=== PATIENT | male | born 1985 | race Caucasian/White ===

== ENCOUNTER 2017-09-01 08:25 | Emergency (ER) | payer BC, MEDICAID, OTHER, SELFPAY ==
[2017-09-01] MEDS ORDERED: Ondansetron 4 MG/2 ML SDV IVPUSH ONE (08:58)
[2017-09-01] MEDS ORDERED: Sodium Chloride 0.9% 10 ML Syringe FLUSH PRN (08:58)
[2017-09-01] MEDS ORDERED: HYDROmorphone 1 MG/ML Syringe IVPUSH ONE (08:59)
[2017-09-01] MEDS ORDERED: Lactated Ringers 1,000 ML IV SCH (09:00)
--- NOTE | 2017-09-01 09:14 | EDM.PDOC ---
ED HPI GENERAL MEDICAL PROBLEM - General Chief Complaint: Abdominal Pain Stated Complaint: ABDOMINAL PAIN Time Seen by Provider: 09/01/17 08:47 Source of Information: Reports: Patient History Limitations: Reports: No Limitations - History of Present Illness INITIAL COMMENTS - FREE TEXT/NARRATIVE: The patient presents with upper abdominal pain, nausea and vomiting. This all started this weekend on Friday. He has chronic pancreatitis and sphincter of odii disfunction. He had stents placed in his sphincter of odii this past month. He was doing good until this weekend. He moved back here from [facility]. He feels that he overexerted himself and that is why he flared up. He denies drinking alcohol. He has no fever, chills, cough, chest pain or shortness of breath. Onset: Gradual Duration: Day(s): (3) Location: Reports: Abdomen Quality: Reports: Sharp Severity: Severe Improves with: Reports: None Worsens with: Reports: None Associated Symptoms: Reports: Nausea/Vomiting. Denies: Fever/Chills, Headaches , Shortness of Breath Treatments MOLD SWABBER: Reports: Other (see below) Other Treatments MOLD SWABBER: zofran and pain meds Right Upper Abdomen Pain Score (Numeric/FACES): 8 - Related Data Allergies Allergy/AdvReac Type Severity Reaction Status Date / Time cats Allergy Itching Uncoded 09/01/17 08:35 Home Meds: Home Meds Omeprazole [Prilosec] 20 mg PO BID 04/05/14 [History] Amylase/Lipase/Protease [Creon DR 24,000 Unit] 5 cap PO TIDMEALS 08/02/14 [ History] Escitalopram [Lexapro] 20 mg PO DAILY 02/09/15 [History] Ondansetron [Zofran ODT] 4 mg PO Q4H PRN #20 tab.dis 08/22/15 [Rx] Pregabalin [Lyrica] 75 mg PO TID 08/14/16 [History] oxyCODONE HCl/Acetaminophen [Endocet 10-325 mg Tablet] 1 tab PO Q6HR PRN [History] Ciprofloxacin [Ciprofloxacin HCl] 500 mg PO BID #6 tablet 07/18/17 [Rx] metroNIDAZOLE [Metronidazole] 500 mg PO TID #9 tablet 07/18/17 [Rx] Past Medical History - Past Health History Medical/Surgical History: Denies Medical/Surgical History HEENT History: Reports: Impaired Vision Other HEENT History: wears glasses Cardiovascular History: Reports: None Respiratory History: Reports: None Gastrointestinal History: Reports: Pancreatitis Other Gastrointestinal History: Stents placed in pancrease, sphinctor of asad surgery . 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 Stone was removed last summer in May-Jun Hematologic History: Reports: None Immunologic History: Reports: None Oncologic (Cancer) History: Reports: None Dermatologic History: Reports: Other (See Below) Other Dermatologic History: allergic to cats - Infectious Disease History Infectious Disease History: Reports: Chicken Pox, Shingles - Past Surgical History Head Surgeries/Procedures: Reports: None HEENT Surgical History: Reports: None GI Surgical History: Reports: Cholecystectomy, Colostomy, EGD Endocrine Surgical History: Reports: None Musculoskeletal Surgical History: Reports: None Dermatological Surgical History: Reports: None Social & Family History - Family History Family Medical History: Unobtainable Cardiac: Reports: CAD, Stent Respiratory: Reports: None GI: Reports: None Neurological: Reports: CVA Oncologic: Reports: Breast, Other (See Below) Other Oncologic Family History: STOMACH - Tobacco Use Smoking Status *Q: Current Every Day Smoker Years of Tobacco use: 14 Packs/Tins Daily: 0.2 Used Tobacco, but Quit: No Month Tobacco Last Used: 2 weeks Second Hand Smoke Exposure: No - Caffeine Use Caffeine Use: Reports: None - Alcohol Use Days Per Week of Alcohol Use: 0 - Recreational Drug Use Recreational Drug Use: Yes Drug Use in Last 12 Months: Yes Recreational Drug Type: Reports: Marijuana/Hashish Recreational Drug Use Frequency: Weekly Recreational Drug Last Use: 07/13/17 - Living Situation & Occupation Living situation: Reports: Single, Alone Occupation: Unemployed ED ROS GENERAL - Review of Systems Review Of Systems: See Below Constitutional: Reports: No Symptoms HEENT: Reports: No Symptoms Respiratory: Reports: No Symptoms Cardiovascular: Reports: No Symptoms Endocrine: Reports: No Symptoms GI/Abdominal: Reports: Abdominal Pain, Nausea, Vomiting : Reports: No Symptoms Musculoskeletal: Reports: No Symptoms ED EXAM, GI/ABD - Physical Exam Exam: See Below Exam Limited By: No Limitations General Appearance: Alert, No Apparent Distress Ears: Normal External Exam Nose: Normal Inspection Head: Atraumatic, Normocephalic Neck: Normal Inspection Respiratory/Chest: No Respiratory Distress, Lungs Clear, Normal Breath Sounds Cardiovascular: Regular Rate, Rhythm, No Edema, No Murmur GI/Abdominal Exam: Soft, No Organomegaly, No Mass, Tender (Upper abdomen) Course - Vital Signs Last Recorded V/S: Last Vital Signs Temp 97.8 F 09/01/17 08:35 Pulse 108 H 09/01/17 08:35 Resp 22 H 09/01/17 08:35 BP 157/97 H 09/01/17 08:35 Pulse Ox 98 09/01/17 08:35 Orthostatic Blood Pressure [ 130/88 Sitting] Orthostatic Blood Pressure [ 157/97 Supine] - Orders/Labs/Meds Orders: Active Orders 24 hr Category Date Time Status Peripheral IV Care [RC] . DIRECTED Care 09/01/17 08:58 Active Lactated Ringers [Ringers, Lactated] 1,000 ml Med 09/01/17 09:00 Active IV ASDIRECTED Sodium Chloride 0.9% [Saline Flush] Med 09/01/17 08:58 Active 10 ml FLUSH ASDIRECTED PRN ED Antiemetic Medication Reflex [OM.PC] Stat Oth 09/01/17 08:58 Ordered Peripheral IV Insertion Adult [OM.PC] Stat Oth 09/01/17 08:58 Ordered Medication Orders Lactated Ringer's (Ringers, Lactated) 1,000 mls @ 1,000 mls/hr IV ASDIRECTED MACHELLE Last Admin: 09/01/17 09:15 Dose: 1,000 mls/hr Sodium Chloride (Saline Flush) 10 ml FLUSH ASDIRECTED PRN PRN Reason: Keep Vein Open Last Admin: 09/01/17 09:17 Dose: 10 ml Labs: Laboratory Tests 09/01/17 09/01/17 Range/Units 08:45 08:45 WBC 14.56 H (4.23-9.07) K/mm3 RBC 5.51 (4.63-6.08) M/mm3 Hgb 16.5 (13.7-17.5) gm/L Hct 49.7 (40.1-51.0) % MCV 90.2 (79.0-92.2) fl MCH 29.9 (25.7-32.2) pg MCHC 33.2 (32.2-35.5) g/dl RDW Std Deviation 44.0 H (35.1-43.9) fL Plt Count 192 (163-337) K/mm3 MPV 12.0 (9.4-12.3) fl Neut % (Auto) 71.5 H (34.0-67.9) % Lymph % (Auto) 19.0 L (21.8-53.1) % Posey % (Auto) 6.5 (5.3-12.2) % Eos % (Auto) 2.3 (0.8-7.0) Baso % (Auto) 0.5 (0.1-1.2) % Neut # (Auto) 10.41 H (1.78-5.38) K/mm3 Lymph # (Auto) 2.76 (1.32-3.57) K/mm3 [place]osey # (Auto) 0.95 H (0.30-0.82) K/mm3 Eos # (Auto) 0.33 (0.04-0.54) K/mm3 Baso # (Auto) 0.08 (0.01-0.08) K/mm3 Sodium 145 (136-145) mEq/L Potassium 4.2 (3.5-5.1) mEq/L Chloride 108 H (98-107) mEq/L Carbon Dioxide 23 (21-32) mEq/L Anion Gap 18.2 H (5-15) BUN 11 (7-18) mg/dL Creatinine 1.0 (0.7-1.3) mg/dL Est Cr Clr Drug Dosing 123.30 mL/min Estimated GFR (MDRD) > 60 (>60) mL/min BUN/Creatinine Ratio 11.0 L (14-18) Glucose 119 H (74-106) mg/dL Calcium 9.4 (8.5-10.1) mg/dL Total Bilirubin 1.0 (0.2-1.0) mg/dL AST 15 (15-37) U/L ALT 21 (16-63) U/L Alkaline Phosphatase 89 (46-116) U/L Total Protein 8.2 (6.4-8.2) g/dl Albumin 4.6 (3.4-5.0) g/dl Globulin 3.6 gm/dL Albumin/Globulin Ratio 1.3 (1-2) Lipase 174 (73-393) U/L Meds: Medications Generic Name Dose Route Start Last Admin Trade Name Freq PRN Reason Stop Dose Admin Lactated Ringer's 1,000 mls @ 1,000 mls/hr 09/01/17 09:00 09/01/17 09:15 Ringers, Lactated IV 1,000 mls/hr ASDIRECTED MACHELLE Administration Sodium Chloride 10 ml 09/01/17 08:58 09/01/17 09:17 Saline Flush FLUSH 10 ml ASDIRECTED PRN Administration Keep Vein Open Discontinued Medications Generic Name Dose Route Start Last Admin Trade Name Freq PRN Reason Stop Dose Admin Hydromorphone HCl 1 mg 09/01/17 08:59 09/01/17 09:18 Dilaudid IVPUSH 09/01/17 09:00 1 mg ONETIME ONE Administration Ondansetron HCl 4 mg 09/01/17 08:58 09/01/17 09:16 Zofran IVPUSH 09/01/17 08:59 4 mg ONETIME ONE Administration - Re-Assessments/Exams Free Text/Narrative Re-Assessment/Exam: 09/01/17 09:17 I ordered an IV LR 1L bolus, zofran 4mg IV, dilaudid 1mg IV and labs. 09/01/17 10:02 His WBC was 14.56. His anion gap was elevated at 18.2. He feels a little better. I will give him another dose of dilaudid and he has an appointment with his doctor at 12:30 today. Departure - Departure Time of Disposition: 10:05 Disposition: Home, Self-Care 01 Condition: Good Clinical Impression: Sphincter of Oddi dysfunction Chronic pancreatitis Qualifiers: Pancreatitis type: unspecified pancreatitis type Qualified Code(s): K86.1 - Other chronic pancreatitis - Discharge Information Referrals: Sandra Young, INVESTMENTS MANAGER [Primary Care Provider] - Forms: ED Department Discharge Additional Instructions: Follow up with Sandra Young today. Please return if you are worse. - My Orders Last 24 Hours: My Active Orders 09/01/17 08:58 Peripheral IV Care [RC] . DIRECTED Sodium Chloride 0.9% [Saline Flush] 10 ml FLUSH ASDIRECTED PRN ED Antiemetic Medication Reflex [OM.PC] Stat Peripheral IV Insertion Adult [OM.PC] Stat 09/01/17 09:00 Lactated Ringers [Ringers, Lactated] 1,000 ml IV ASDIRECTED - Assessment/Plan Last 24 Hours: My Active Orders 09/01/17 08:58 Peripheral IV Care [RC] . DIRECTED Sodium Chloride 0.9% [Saline Flush] 10 ml FLUSH ASDIRECTED PRN ED Antiemetic Medication Reflex [OM.PC] Stat Peripheral IV Insertion Adult [OM.PC] Stat 09/01/17 09:00 Lactated Ringers [Ringers, Lactated] 1,000 ml IV ASDIRECTED
[2017-09-01] MEDS ORDERED: HYDROmorphone 0.5 MG/0.5 ML Syringe IVPUSH ONE (10:03)
[2017-09-01 10:21] VITALS: BP 132/92
== END 2017-09-01 12:15 | disposition home or self-care (01) ==
LOC: SUPCPDRO 08:25 → JD.ED 08:25
DX: K83.8 Other specified diseases of biliary tract (principal); K86.1 Other chronic pancreatitis; Z79.899 Other long term (current) drug therapy; F41.9 Anxiety disorder, unspecified; F32.9 Major depressive disorder, single episode, unspecified; F17.210 Nicotine dependence, cigarettes, uncomplicated; Z96.89 Presence of other specified functional implants
CPT/HCPCS: 36415; 80053; 83690; 85025; 96361; 96374; 96375; 96376; 99284; J1170; J2405; J7050; J7120

== ENCOUNTER 2017-09-07 09:27 | Emergency (ER) | payer OTHER ==
--- NOTE | 2017-09-07 09:50 | EDM.PDOC ---
ED HPI GENERAL MEDICAL PROBLEM - General Chief Complaint: Abdominal Pain Stated Complaint: ABDOMINAL PAIN ACUTE PANCREATITIS Time Seen by Provider: 09/07/17 09:49 - History of Present Illness INITIAL COMMENTS - FREE TEXT/NARRATIVE: 32-year-old male presents to the emergency room with abdominal pain. This started around 4:00 this morning the patient could not get relief after taking one of his 4 mg Dilaudid tablets at home. The patient has recurrent bouts of pancreatitis he had stents placed in the sphincter of Reed early in July of this year. The patient denies any alcohol use he occasionally uses marijuana the patient has dialyzed tablets at home for pain these are not working. The patient is had some nausea and vomiting this morning further complicating his pain management. Patient is treated for dyspepsia with omeprazole. Patient denies any fevers or chills mostly complaining of severe pain. Right Upper Abdomen Pain Score (Numeric/FACES): 9 - Related Data Allergies Allergy/AdvReac Type Severity Reaction Status Date / Time cats Allergy Itching Uncoded 09/07/17 09:38 Home Meds: Home Meds Omeprazole [Prilosec] 20 mg PO BID 04/05/14 [History] Amylase/Lipase/Protease [Creon DR 24,000 Unit] 5 cap PO TIDMEALS 08/02/14 [ History] Escitalopram [Lexapro] 20 mg PO DAILY 02/09/15 [History] Ondansetron [Zofran ODT] 4 mg PO Q4H PRN #20 tab.dis 08/22/15 [Rx] Pregabalin [Lyrica] 50 mg PO TID 08/14/16 [History] Ciprofloxacin [Ciprofloxacin HCl] 500 mg PO BID #6 tablet 07/18/17 [Rx] metroNIDAZOLE [Metronidazole] 500 mg PO TID #9 tablet 07/18/17 [Rx] HYDROmorphone [Dilaudid] 2 mg PO Q4H PRN 09/07/17 [History] Past Medical History - Past Health History Medical/Surgical History: Denies Medical/Surgical History HEENT History: Reports: Impaired Vision Other HEENT History: wears glasses Cardiovascular History: Reports: None Respiratory History: Reports: None Gastrointestinal History: Reports: Pancreatitis Other Gastrointestinal History: Stents placed in pancrease, sphinctor of asad surgery . 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 Stone was removed last summer in May-Jun Hematologic History: Reports: None Immunologic History: Reports: None Oncologic (Cancer) History: Reports: None Dermatologic History: Reports: Other (See Below) Other Dermatologic History: allergic to cats - Infectious Disease History Infectious Disease History: Reports: Chicken Pox, Shingles - Past Surgical History Head Surgeries/Procedures: Reports: None HEENT Surgical History: Reports: None GI Surgical History: Reports: Cholecystectomy, Colostomy, EGD Endocrine Surgical History: Reports: None Musculoskeletal Surgical History: Reports: None Dermatological Surgical History: Reports: None Social & Family History - Family History Family Medical History: Unobtainable Cardiac: Reports: CAD, Stent Respiratory: Reports: None GI: Reports: None Neurological: Reports: CVA Oncologic: Reports: Breast, Other (See Below) Other Oncologic Family History: STOMACH - Tobacco Use Smoking Status *Q: Current Every Day Smoker Years of Tobacco use: 14 Packs/Tins Daily: 0.2 Used Tobacco, but Quit: No Month Tobacco Last Used: 2 weeks Second Hand Smoke Exposure: No - Caffeine Use Caffeine Use: Reports: None - Alcohol Use Days Per Week of Alcohol Use: 0 - Recreational Drug Use Recreational Drug Use: Yes Drug Use in Last 12 Months: Yes Recreational Drug Type: Reports: Marijuana/Hashish Recreational Drug Use Frequency: Weekly Recreational Drug Last Use: 07/13/17 - Living Situation & Occupation Living situation: Reports: Single, Alone Occupation: Unemployed ED ROS GENERAL - Review of Systems Review Of Systems: See Below Constitutional: Reports: No Symptoms HEENT: Reports: No Symptoms Respiratory: Reports: No Symptoms Cardiovascular: Reports: No Symptoms GI/Abdominal: Reports: Abdominal Pain, Nausea, Vomiting. Denies: Constipation, Diarrhea : Reports: No Symptoms Musculoskeletal: Reports: No Symptoms Skin: Reports: No Symptoms Neurological: Reports: No Symptoms ED EXAM, GI/ABD - Physical Exam Exam: See Below Exam Limited By: No Limitations General Appearance: Alert, Moderate Distress (From the pain) Head: Atraumatic, Normocephalic Neck: Normal Inspection, Supple, Non-Tender, Full Range of Motion Respiratory/Chest: No Respiratory Distress, Lungs Clear, Normal Breath Sounds Cardiovascular: Regular Rate, Rhythm, No Edema, No Murmur GI/Abdominal Exam: Normal Bowel Sounds, Soft, Tender (Patient is marked upper quadrant tenderness mostly midepigastric to a lesser degree in the left and right upper quadrants). No: Guarding, Rigid, Rebound Back Exam: Normal Inspection. No: CVA Tenderness (L), CVA Tenderness (R) Extremities: Normal Inspection, No Pedal Edema Neurological: Alert, Oriented, Normal Cognition Course - Vital Signs Last Recorded V/S: Last Vital Signs Temp 36.3 C 09/07/17 09:33 Pulse 180 H 09/07/17 09:33 Resp 18 09/07/17 09:33 BP 152/105 H 09/07/17 09:33 Pulse Ox 100 09/07/17 09:33 - Orders/Labs/Meds Orders: Active Orders 24 hr Category Date Time Status Abdomen Pelvis w Cont [CT] Stat Exams 09/07/17 11:49 Ordered Lactated Ringers [Ringers, Lactated] 1,000 ml Med 09/07/17 10:00 Active IV ASDIRECTED Medication Orders Lactated Ringer's (Ringers, Lactated) 1,000 mls @ 150 mls/hr IV ASDIRECTED MACHELLE Last Admin: 09/07/17 10:17 Dose: 150 mls/hr Labs: Laboratory Tests 09/07/17 09/07/17 09/07/17 Range/Units 09:45 09:45 11:25 WBC 14.20 H (4.23-9.07) K/mm3 RBC 5.07 (4.63-6.08) M/mm3 Hgb 15.4 (13.7-17.5) gm/L Hct 46.1 (40.1-51.0) % MCV 90.9 (79.0-92.2) fl MCH 30.4 (25.7-32.2) pg MCHC 33.4 (32.2-35.5) g/dl RDW Std Deviation 44.4 H (35.1-43.9) fL Plt Count 189 (163-337) K/mm3 MPV 12.0 (9.4-12.3) fl Neutrophils % (Manual) 75 H (40-60) % Band Neutrophils % 0 (0-10) % Lymphocytes % (Manual) 21 (20-40) % Atypical Lymphs % 0 % Monocytes % (Manual) 2 (2-10) % Eosinophils % (Manual) 1 (0.8-7.0) % Basophils % (Manual) 1 (0.2-1.2) Platelet Estimate Adequate RBC Morph Comment Normal Sodium 144 (136-145) mEq/L Potassium 4.6 (3.5-5.1) mEq/L Chloride 107 (98-107) mEq/L Carbon Dioxide 25 (21-32) mEq/L Anion Gap 16.6 H (5-15) BUN 14 (7-18) mg/dL Creatinine 0.9 (0.7-1.3) mg/dL Est Cr Clr Drug Dosing 137.00 mL/min Estimated GFR (MDRD) > 60 (>60) mL/min BUN/Creatinine Ratio 15.6 (14-18) Glucose 126 H (74-106) mg/dL Calcium 9.1 (8.5-10.1) mg/dL Total Bilirubin 0.2 (0.2-1.0) mg/dL AST 14 L (15-37) U/L ALT 20 (16-63) U/L Alkaline Phosphatase 81 (46-116) U/L Total Protein 7.5 (6.4-8.2) g/dl Albumin 4.1 (3.4-5.0) g/dl Globulin 3.4 gm/dL Albumin/Globulin Ratio 1.2 (1-2) Amylase 94 (25-115) U/L Lipase 622 H (73-393) U/L Urine Color (Yellow) Urine Appearance (Clear) Urine pH (5.0-8.0) Ur Specific [place] (1.005-1.030) Urine Protein (Negative) Urine Glucose (UA) (Negative) Urine Ketones (Negative) Urine Occult Blood (Negative) Urine Nitrite (Negative) Urine Bilirubin (Negative) Urine Urobilinogen (0.2-1.0) Ur Leukocyte Esterase (Negative) Urine RBC (0-5) /hpf Urine WBC (0-5) /hpf Ur Epithelial Cells (0-5) /hpf Urine Bacteria (FEW) /hpf Urine Mucus (FEW) /hpf Urine Opiates Screen Presumptive positive H (NEGATIVE) Ur Buprenorphine Scrn Negative (NEGATIVE) Ur Oxycodone Screen Negative (NEGATIVE) Urine Methadone Screen Negative (NEGATIVE) Ur Propoxyphene Screen Negative (NEGATIVE) Ur Barbiturates Screen Negative (NEGATIVE) Ur Tricyclics Screen Presumptive positive H (NEGATIVE) Ur Phencyclidine Scrn Negative (NEGATIVE) Ur Amphetamine Screen Negative (NEGATIVE) U Methamphetamines Scrn Negative (NEGATIVE) U Benzodiazepines Scrn Negative (NEGATIVE) U Cocaine Metab Screen Negative (NEGATIVE) U Marijuana (THC) Screen Presumptive positive H (NEGATIVE) Ethyl Alcohol 0.00 (0.00) gm% 09/07/17 Range/Units 11:25 WBC (4.23-9.07) K/mm3 RBC (4.63-6.08) M/mm3 Hgb (13.7-17.5) gm/L Hct (40.1-51.0) % MCV (79.0-92.2) fl MCH (25.7-32.2) pg MCHC (32.2-35.5) g/dl RDW Std Deviation (35.1-43.9) fL Plt Count (163-337) K/mm3 MPV (9.4-12.3) fl Neutrophils % (Manual) (40-60) % Band Neutrophils % (0-10) % Lymphocytes % (Manual) (20-40) % Atypical Lymphs % % Monocytes % (Manual) (2-10) % Eosinophils % (Manual) (0.8-7.0) % Basophils % (Manual) (0.2-1.2) Platelet Estimate RBC Morph Comment Sodium (136-145) mEq/L Potassium (3.5-5.1) mEq/L Chloride (98-107) mEq/L Carbon Dioxide (21-32) mEq/L Anion Gap (5-15) BUN (7-18) mg/dL Creatinine (0.7-1.3) mg/dL Est Cr Clr Drug Dosing mL/min Estimated GFR (MDRD) (>60) mL/min BUN/Creatinine Ratio (14-18) Glucose (74-106) mg/dL Calcium (8.5-10.1) mg/dL Total Bilirubin (0.2-1.0) mg/dL AST (15-37) U/L ALT (16-63) U/L Alkaline Phosphatase (46-116) U/L Total Protein (6.4-8.2) g/dl Albumin (3.4-5.0) g/dl Globulin gm/dL Albumin/Globulin Ratio (1-2) Amylase (25-115) U/L Lipase (73-393) U/L Urine Color Yellow (Yellow) Urine Appearance Clear (Clear) Urine pH 6.0 (5.0-8.0) Ur Specific [place] > or = 1.030 (1.005-1.030) Urine Protein Negative (Negative) Urine Glucose (UA) Negative (Negative) Urine Ketones Negative (Negative) Urine Occult Blood Negative (Negative) Urine Nitrite Negative (Negative) Urine Bilirubin Negative (Negative) Urine Urobilinogen 0.2 (0.2-1.0) Ur Leukocyte Esterase Negative (Negative) Urine RBC 0-5 (0-5) /hpf Urine WBC 0-5 (0-5) /hpf Ur Epithelial Cells 0-5 (0-5) /hpf Urine Bacteria Not seen (FEW) /hpf Urine Mucus Few (FEW) /hpf Urine Opiates Screen (NEGATIVE) Ur Buprenorphine Scrn (NEGATIVE) Ur Oxycodone Screen (NEGATIVE) Urine Methadone Screen (NEGATIVE) Ur Propoxyphene Screen (NEGATIVE) Ur Barbiturates Screen (NEGATIVE) Ur Tricyclics Screen (NEGATIVE) Ur Phencyclidine Scrn (NEGATIVE) Ur Amphetamine Screen (NEGATIVE) U Methamphetamines Scrn (NEGATIVE) U Benzodiazepines Scrn (NEGATIVE) U Cocaine Metab Screen (NEGATIVE) U Marijuana (THC) Screen (NEGATIVE) Ethyl Alcohol (0.00) gm% Meds: Medications Generic Name Dose Route Start Last Admin Trade Name Freq PRN Reason Stop Dose Admin Lactated Ringer's 1,000 mls @ 150 mls/hr 09/07/17 10:00 09/07/17 10:17 Ringers, Lactated IV 150 mls/hr ASDIRECTED MACHELLE Administration Discontinued Medications Generic Name Dose Route Start Last Admin Trade Name Freq PRN Reason Stop Dose Admin Hydromorphone HCl 0.5 mg 09/07/17 09:56 09/07/17 10:20 Dilaudid IVPUSH 09/07/17 09:57 Not Given ONETIME ONE Hydromorphone HCl 1 mg 09/07/17 10:10 09/07/17 10:12 Dilaudid IVPUSH 09/07/17 10:11 1 mg ONETIME ONE Administration Hydromorphone HCl 0.5 mg 09/07/17 11:38 09/07/17 11:45 Dilaudid IVPUSH 09/07/17 11:39 0.5 mg ONETIME ONE Administration Ondansetron HCl 4 mg 09/07/17 09:56 09/07/17 10:10 Zofran IVPUSH 09/07/17 09:57 4 mg ONETIME ONE Administration Pantoprazole Sodium 40 mg 09/07/17 11:51 09/07/17 12:00 Protonix Iv IVPUSH 09/07/17 11:52 40 mg ONETIME ONE Administration - Re-Assessments/Exams Free Text/Narrative Re-Assessment/Exam: 09/07/17 12:08 Patient initially received a milligram of Dilaudid with some pain relief but this was short-lived this was followed up with 0.5 of Dilaudid. His lipase came back at 622 did offer CAT scan in patient declined this is his mine captain told him he does not need these and they are seldom beneficial. Patient's white count is 14,275% segs 0 bands. He is a little dehydrated also. Case discussed with Dr. Macedo hospitalist patient will be placed in for fluid therapy and pain control. Departure - Departure Time of Disposition: 12:10 Disposition: Admitted As Inpatient 66 Clinical Impression: Pancreatitis Qualifiers: Chronicity: chronic Pancreatitis type: idiopathic Qualified Code(s): K86.1 - Other chronic pancreatitis - Discharge Information Referrals: Sandra Young, CLINICAL PHLEBOTOMIST [Primary Care Provider] - Forms: ED Department Discharge - My Orders Last 24 Hours: My Active Orders 09/07/17 10:00 Lactated Ringers [Ringers, Lactated] 1,000 ml IV ASDIRECTED 09/07/17 11:49 Abdomen Pelvis w Cont [CT] Stat - Assessment/Plan Last 24 Hours: My Active Orders 09/07/17 10:00 Lactated Ringers [Ringers, Lactated] 1,000 ml IV ASDIRECTED 09/07/17 11:49 Abdomen Pelvis w Cont [CT] Stat
[2017-09-07] MEDS ORDERED: Ondansetron 4 MG/2 ML SDV IVPUSH ONE (09:56)
[2017-09-07] MEDS ORDERED: HYDROmorphone 1 MG/ML Syringe IVPUSH ONE ×2 (09:56→10:10)
[2017-09-07] MEDS ORDERED: Lactated Ringers 1,000 ML IV SCH (10:00)
[2017-09-07] MEDS ORDERED: HYDROmorphone 0.5 MG/0.5 ML Syringe IVPUSH ONE (11:38)
[2017-09-07] MEDS ORDERED: Pantoprazole 40 MG Vial IVPUSH ONE (11:51)
--- NOTE | 2017-09-07 12:45 | PCM.HP ---
H&P History of Present Illness - General Date of Service: 09/07/17 Admit Problem/Dx: Acute and Chronic Pancreatitis Source of Information: Patient, Old Records, RN Notes Reviewed History Limitations: Reports: No Limitations Right Upper Abdomen Pain Score (Numeric/FACES): 9 - Related Data Allergies/Adverse Reactions: Allergies Allergy/AdvReac Type Severity Reaction Status Date / Time cats Allergy Itching Uncoded 09/07/17 09:38 Home Medications: Home Meds Omeprazole [Prilosec] 20 mg PO BID 04/05/14 [History] Amylase/Lipase/Protease [Creon DR 24,000 Unit] 5 cap PO TIDMEALS 08/02/14 [ History] Escitalopram [Lexapro] 20 mg PO DAILY 02/09/15 [History] Ondansetron [Zofran ODT] 4 mg PO Q4H PRN #20 tab.dis 08/22/15 [Rx] Pregabalin [Lyrica] 50 mg PO TID 08/14/16 [History] Ciprofloxacin [Ciprofloxacin HCl] 500 mg PO BID #6 tablet 07/18/17 [Rx] metroNIDAZOLE [Metronidazole] 500 mg PO TID #9 tablet 07/18/17 [Rx] HYDROmorphone [Dilaudid] 2 mg PO Q4H PRN 09/07/17 [History] Past Medical History - Past Health History Medical/Surgical History: Denies Medical/Surgical History HEENT History: Reports: Impaired Vision Other HEENT History: wears glasses Cardiovascular History: Reports: None Respiratory History: Reports: None Gastrointestinal History: Reports: Pancreatitis Other Gastrointestinal History: Stents placed in pancrease, sphinctor of asad surgery . 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 Stone was removed last summer in May-Jun Hematologic History: Reports: None Immunologic History: Reports: None Oncologic (Cancer) History: Reports: None Dermatologic History: Reports: Other (See Below) Other Dermatologic History: allergic to cats - Infectious Disease History Infectious Disease History: Reports: Chicken Pox, Shingles - Past Surgical History Head Surgeries/Procedures: Reports: None HEENT Surgical History: Reports: None GI Surgical History: Reports: Cholecystectomy, Colostomy, EGD Endocrine Surgical History: Reports: None Musculoskeletal Surgical History: Reports: None Dermatological Surgical History: Reports: None Social & Family History - Family History Family Medical History: Unobtainable Cardiac: Reports: CAD, Stent Respiratory: Reports: None GI: Reports: None Neurological: Reports: CVA Oncologic: Reports: Breast, Other (See Below) Other Oncologic Family History: STOMACH - Tobacco Use Smoking Status *Q: Current Every Day Smoker Years of Tobacco use: 14 Packs/Tins Daily: 0.2 Used Tobacco, but Quit: No Month Tobacco Last Used: 2 weeks Second Hand Smoke Exposure: No - Caffeine Use Caffeine Use: Reports: None - Alcohol Use Days Per Week of Alcohol Use: 0 - Recreational Drug Use Recreational Drug Use: Yes Drug Use in Last 12 Months: Yes Recreational Drug Type: Reports: Marijuana/Hashish Recreational Drug Use Frequency: Weekly Recreational Drug Last Use: 07/13/17 - Living Situation & Occupation Living situation: Reports: Single, Alone Occupation: Unemployed Exam - Vital Signs Vital Signs: Last Vital Signs Temp 36.3 C 09/07/17 09:33 Pulse 180 H 09/07/17 09:33 Resp 18 09/07/17 09:33 BP 152/105 H 09/07/17 09:33 Pulse Ox 100 09/07/17 09:33 Weight: 117.934 kg - Patient Data Result Diagrams: 09/07/17 09:45 09/07/17 09:45 *Q Meaningful Use (ADM) - VTE *Q VTE Criteria *Q: - Stroke *Q Stroke Criteria *Q: - AMI *Q AMI Criteria *Q: Orders Last 24hrs: Medication Orders Lactated Ringer's (Ringers, Lactated) 1,000 mls @ 150 mls/hr IV ASDIRECTED MACHELLE Last Admin: 09/07/17 10:17 Dose: 150 mls/hr
[2017-09-07 13:08] VITALS: BP 124/81
== END 2017-09-07 13:33 | disposition home or self-care (01) ==
LOC: EEVIPCON 09:27 → JD.ED 09:27 → JD.MS 12:19 → UNDOADMIN 12:19 → JD.ED 13:30 → JD.MS 13:33
DX: K86.1 Other chronic pancreatitis (principal); F17.210 Nicotine dependence, cigarettes, uncomplicated; Z79.899 Other long term (current) drug therapy
CPT/HCPCS: 36415; 80053; 80306; 81001; 82150; 83690; 85025; 96361; 96374; 96375; 96376; 99284; C9113; G0480; J1170; J2405; J7120; 99285

== ENCOUNTER 2017-09-07 15:19 | Emergency (ER) | payer MEDICAID, OTHER ==
--- NOTE | 2017-09-07 17:10 | EDM.PDOC ---
ED HPI GENERAL MEDICAL PROBLEM - General Chief Complaint: Abdominal Pain Stated Complaint: ABD PAIN Time Seen by Provider: 09/07/17 16:59 - History of Present Illness INITIAL COMMENTS - FREE TEXT/NARRATIVE: 32-year-old male returns to the emergency room with continued pain. Patient was seen and thoroughly evaluated earlier today we are get admitted for pain control for his pancreatitis however the patient declined admission. At this point the patient is doing better than he was morning he thinks she's on the tail end of this exacerbation of his pancreatitis flare. We did have some issues with the patient as he told me he was going to get a taxi to take him home and he drove himself home instead we confronted him about this he did attempt to get a ride but was unable to. He has not developed any fevers or chills he did take his last 2 mg Dilaudid around 1:00 this afternoon. Treatments GROUTMAN: Reports: Other (see below) Other Treatments GROUTMAN: zofran Right Upper Abdomen Pain Score (Numeric/FACES): 8 - Related Data Allergies Allergy/AdvReac Type Severity Reaction Status Date / Time cats Allergy Itching Uncoded 09/07/17 09:38 Home Meds: Home Meds Omeprazole [Prilosec] 20 mg PO BID 04/05/14 [History] Amylase/Lipase/Protease [Creon DR 24,000 Unit] 5 cap PO TIDMEALS 08/02/14 [ History] Escitalopram [Lexapro] 20 mg PO DAILY 02/09/15 [History] Ondansetron [Zofran ODT] 4 mg PO Q4H PRN #20 tab.dis 08/22/15 [Rx] Pregabalin [Lyrica] 50 mg PO TID 08/14/16 [History] HYDROmorphone [Dilaudid] 2 mg PO Q4H PRN 09/07/17 [History] metroNIDAZOLE [Flagyl] 500 mg PO TID 09/07/17 [History] Past Medical History - Past Health History Medical/Surgical History: Denies Medical/Surgical History HEENT History: Reports: Impaired Vision Other HEENT History: wears glasses Cardiovascular History: Reports: None Respiratory History: Reports: None Gastrointestinal History: Reports: Pancreatitis Other Gastrointestinal History: Stents placed in pancrease, sphinctor of asad surgery . 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 Stone was removed last summer in May-Jun Hematologic History: Reports: None Immunologic History: Reports: None Oncologic (Cancer) History: Reports: None Dermatologic History: Reports: Other (See Below) Other Dermatologic History: allergic to cats - Infectious Disease History Infectious Disease History: Reports: Chicken Pox, Shingles - Past Surgical History Head Surgeries/Procedures: Reports: None HEENT Surgical History: Reports: None GI Surgical History: Reports: Cholecystectomy, Colostomy, EGD Endocrine Surgical History: Reports: None Musculoskeletal Surgical History: Reports: None Dermatological Surgical History: Reports: None Social & Family History - Family History Family Medical History: Unobtainable Cardiac: Reports: CAD, Stent Respiratory: Reports: None GI: Reports: None Neurological: Reports: CVA Oncologic: Reports: Breast, Other (See Below) Other Oncologic Family History: STOMACH - Tobacco Use Smoking Status *Q: Current Every Day Smoker Years of Tobacco use: 14 Packs/Tins Daily: 0.3 Used Tobacco, but Quit: No Month Tobacco Last Used: 2 weeks Second Hand Smoke Exposure: No - Caffeine Use Caffeine Use: Reports: None - Alcohol Use Days Per Week of Alcohol Use: 0 - Recreational Drug Use Recreational Drug Use: Yes Drug Use in Last 12 Months: Yes Recreational Drug Type: Reports: Marijuana/Hashish Other Recreational Drug Type: lasst time was 3 weeks ago Recreational Drug Use Frequency: Weekly Recreational Drug Last Use: 07/13/17 - Living Situation & Occupation Living situation: Reports: Single, Alone Occupation: Unemployed ED ROS GENERAL - Review of Systems Review Of Systems: See Below Constitutional: Denies: Fever, Chills Respiratory: Reports: No Symptoms Cardiovascular: Reports: No Symptoms GI/Abdominal: Reports: Abdominal Pain, Nausea, Vomiting. Denies: Constipation, Diarrhea ED EXAM, GI/ABD - Physical Exam Exam: See Below Exam Limited By: No Limitations General Appearance: Alert, No Apparent Distress Respiratory/Chest: No Respiratory Distress, Lungs Clear, Normal Breath Sounds Cardiovascular: Regular Rate, Rhythm, No Edema, No Murmur GI/Abdominal Exam: Normal Bowel Sounds, Soft, Other (No rebound or guarding noted patient has some discomfort in the epigastric region. This is much milder than it was earlier today) Course - Vital Signs Last Recorded V/S: Last Vital Signs Temp 36.8 C 09/07/17 15:49 Pulse 88 09/07/17 15:49 Resp 32 H 09/07/17 15:49 BP 147/79 H 09/07/17 15:49 Pulse Ox 97 09/07/17 15:49 - Re-Assessments/Exams Free Text/Narrative Re-Assessment/Exam: 09/07/17 17:28 The patient would prefer to be treated as an outpatient and since he is improving I think this is reasonable. We discussed his pain options. There is no labored and get him oral Dilaudid on a Friday afternoon after the pharmacy is closed. He will follow-up with his primary provider tomorrow in the short- term he'll be given Percocet No. 6 03/19/25 one or 2 every 6 hours as needed he has plenty of Zofran at home. We discussed no uncertain terms the importance of him being honest with us especially when it comes to taking pain medication in the driving away from here. Departure - Departure Time of Disposition: 17:17 Disposition: Home, Self-Care 01 Clinical Impression: Pancreatitis Qualifiers: Chronicity: chronic Pancreatitis type: idiopathic Qualified Code(s): K86.1 - Other chronic pancreatitis - Discharge Information Referrals: Sandra Young, HOP SEPARATOR [Primary Care Provider] - Forms: ED Department Discharge Additional Instructions: Return to the emergency room with any questions problems worsening symptoms. Follow-up with your regular provider in the morning as we've discussed. He been given Percocet No. 6 from the machine at waiting room one or 2 every 6 hours as needed for pain. Do not drive or returning to work within 12 hours of taking the Percocet. Clear liquid diet. Follow-up with the drywall stripper helper as soon as practical.
[2017-09-07 17:53] VITALS: BP 163/94
== END 2017-09-07 17:30 | disposition home or self-care (01) ==
LOC: JD.ED 15:19
DX: K86.1 Other chronic pancreatitis (principal); F17.210 Nicotine dependence, cigarettes, uncomplicated; Z79.899 Other long term (current) drug therapy
CPT/HCPCS: 99284; 99285

== ENCOUNTER 2017-09-14 13:47 | Emergency (ER) | payer MEDICAID ==
[2017-09-14 14:06] VITALS: BP 115/98
[2017-09-14] MEDS ORDERED: Ondansetron 4 MG/2 ML SDV IVPUSH ONE (14:45)
[2017-09-14] MEDS ORDERED: Sodium Chloride 0.9% 1,000 ML IV ONE (14:45)
--- NOTE | 2017-09-14 14:56 | EDM.PDOC ---
ED HPI GENERAL MEDICAL PROBLEM - General Chief Complaint: Gastrointestinal Problem Stated Complaint: VOMITING Time Seen by Provider: 09/14/17 13:52 Source of Information: Reports: Patient, Old Records, RN Notes Reviewed, Other ( [place]MP[place]) History Limitations: Reports: No Limitations - History of Present Illness INITIAL COMMENTS - FREE TEXT/NARRATIVE: The patient states that he has a history of chronic pancreatitis, due to pancreas divisum, first diagnosed at 24 years of age, but symptomatically since 18 years of age. He states that he is undergone treatment including biliary stents, 2 sphincter of Oddi surgeries, stone removal, and a laparoscopic cholecystectomy. He has been seen by the [employer] Foreign [employer] Tutor Dr. Jaramillo from [place], however, his pain is currently being managed by Brittani Young. He states that he developed right upper quadrant abdominal pain, nausea, and vomiting this past 09/12/2017. He describes the pain as sharp/stabbing. It does not radiate. He states that it has been waxing and waning. He states that he feels better if he applies heat to the area. He states that he was last prescribed Dilaudid 2 mg, one tablet every 4-6 hours , 6 days ago, on 09/08/2017, but that he has run out due to excess consumption. He states that he called Ms. Young on Friday, but has not had a response. Review of the [place] PMP[place] finds that the patient has 217 prescriptions for controlled substances by 14 prescribers filled at 9 different pharmacies. His most recent prescription for an opioid was Dilaudid 2 mg tablets, #40, a ten- day prescription, per Brittani Young, written and filled on 09/08/2017. This should have lasted him until this coming , 09/18/2017. Abdominal Pain Score (Numeric/FACES): 7 - Related Data Allergies Allergy/AdvReac Type Severity Reaction Status Date / Time cats Allergy Itching Uncoded 09/14/17 14:01 Home Meds: Home Meds Omeprazole [Prilosec] 20 mg PO BID 04/05/14 [History] Amylase/Lipase/Protease [Angel PITTMAN 24,000 Unit] 5 cap PO TIDMEALS 08/02/14 [ History] Escitalopram [Lexapro] 20 mg PO DAILY 02/09/15 [History] Ondansetron [Zofran ODT] 4 mg PO Q4H PRN #20 tab.dis 08/22/15 [Rx] Pregabalin [Lyrica] 50 mg PO TID 08/14/16 [History] HYDROmorphone [Dilaudid] 2 mg PO Q4H PRN 09/07/17 [History] Past Medical History HEENT History: Reports: Impaired Vision Other HEENT History: wears glasses Gastrointestinal History: Reports: GERD (possible), Pancreatitis (as per the HPI ) Musculoskeletal History: Reports: Back Pain, Chronic Psychiatric History: Reports: Anxiety, Depression - Infectious Disease History Infectious Disease History: Reports: Chicken Pox, Shingles - Past Surgical History GI Surgical History: Reports: Cholecystectomy, EGD Social & Family History - Family History Family Medical History: Unobtainable Cardiac: Reports: CAD, Stent Respiratory: Reports: None GI: Reports: None Neurological: Reports: CVA Oncologic: Reports: Breast, Other (See Below) Other Oncologic Family History: STOMACH - Tobacco Use Smoking Status *Q: Current Every Day Smoker Years of Tobacco use: 15 Packs/Tins Daily: 0.3 Packs/Tins Daily Comment: Down from 2 ppd - Caffeine Use Caffeine Use: Reports: None - Alcohol Use Alcohol Use History: No Days Per Week of Alcohol Use: 0 - Recreational Drug Use Recreational Drug Use: Yes Drug Use in Last 12 Months: Yes Recreational Drug Type: Reports: Marijuana/Hashish Other Recreational Drug Type: lasst time was 3 weeks ago Recreational Drug Use Frequency: Socially Recreational Drug Last Use: 09/09/2017 - Living Situation & Occupation Living situation: Reports: Single, Alone 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[employer]) ED ROS GENERAL - Review of Systems Review Of Systems: See Below Constitutional: Reports: No Symptoms HEENT: Reports: No Symptoms Respiratory: Reports: No Symptoms Cardiovascular: Reports: No Symptoms Endocrine: Reports: No Symptoms GI/Abdominal: Reports: Abdominal Pain, Constipation, Diarrhea, Nausea, Vomiting : Reports: No Symptoms Musculoskeletal: Reports: No Symptoms Skin: Reports: No Symptoms Neurological: Reports: No Symptoms Psychiatric: Reports: No Symptoms Hematologic/Lymphatic: Reports: No Symptoms Immunologic: Reports: No Symptoms ED EXAM, GI/ABD - Physical Exam Exam: See Below Exam Limited By: No Limitations General Appearance: Alert, WD/WN Eyes: Bilateral: Normal Appearance, EOMI Ears: Normal External Exam, Hearing Grossly Normal Nose: Normal Inspection, No Blood Throat/Mouth: Normal Inspection, Normal Lips, Normal Voice, No Airway Compromise Head: Atraumatic, Normocephalic Neck: Normal Inspection, Full Range of Motion Respiratory/Chest: No Respiratory Distress, Lungs Clear, Normal Breath Sounds, No Accessory Muscle Use Cardiovascular: Normal Peripheral Pulses, Regular Rate, Rhythm, No Gallop, No JVD, No Murmur, No Rub GI/Abdominal Exam: Normal Bowel Sounds, Soft, No Organomegaly, No Distention, No Abnormal Bruit, No Mass, Pelvis Stable, Tender (generalized, non-focal) (Male) Exam: Deferred Rectal (Males) Exam: Deferred Back Exam: Normal Inspection, Full Range of Motion. No: CVA Tenderness (L), CVA Tenderness (R) Extremities: Normal Inspection, Normal Range of Motion, No Pedal Edema, Normal Capillary Refill Neurological: Alert, Oriented, Normal Cognition, No Motor/Sensory Deficits Psychiatric: Normal Affect Skin Exam: Warm, Dry, Intact, Normal Color, No Rash Course - Vital Signs Last Recorded V/S: Last Vital Signs Temp 36.2 C 09/14/17 14:02 Pulse 106 H 09/14/17 14:02 Resp 16 09/14/17 14:02 BP 115/98 H 09/14/17 14:02 Pulse Ox 98 09/14/17 14:02 - Orders/Labs/Meds Orders: Active Orders 24 hr Category Date Time Status Abdomen 1V Upright [CR] Stat Exams 09/14/17 14:52 Taken Labs: Laboratory Tests 09/14/17 09/14/17 Range/Units 14:17 14:17 WBC 9.82 H (4.23-9.07) K/mm3 RBC 5.20 (4.63-6.08) M/mm3 Hgb 15.7 (13.7-17.5) gm/L Hct 46.8 (40.1-51.0) % MCV 90.0 (79.0-92.2) fl MCH 30.2 (25.7-32.2) pg MCHC 33.5 (32.2-35.5) g/dl RDW Std Deviation 44.2 H (35.1-43.9) fL Plt Count 244 (163-337) K/mm3 MPV 11.0 (9.4-12.3) fl Neutrophils % (Manual) 59 (40-60) % Band Neutrophils % 0 (0-10) % Lymphocytes % (Manual) 33 (20-40) % Atypical Lymphs % 0 % Monocytes % (Manual) 6 (2-10) % Eosinophils % (Manual) 1 (0.8-7.0) % Basophils % (Manual) 1 (0.2-1.2) Platelet Estimate Adequate RBC Morph Comment Normal Sodium 144 (136-145) mEq/L Potassium 3.9 (3.5-5.1) mEq/L Chloride 104 (98-107) mEq/L Carbon Dioxide 24 (21-32) mEq/L Anion Gap 19.9 H (5-15) BUN 16 (7-18) mg/dL Creatinine 1.0 (0.7-1.3) mg/dL Est Cr Clr Drug Dosing 123.30 mL/min Estimated GFR (MDRD) > 60 (>60) mL/min BUN/Creatinine Ratio 16.0 (14-18) Glucose 119 H (74-106) mg/dL Calcium 9.5 (8.5-10.1) mg/dL Total Bilirubin 1.1 H (0.2-1.0) mg/dL AST 15 (15-37) U/L ALT 33 (16-63) U/L Alkaline Phosphatase 85 (46-116) U/L Total Protein 8.2 (6.4-8.2) g/dl Albumin 4.5 (3.4-5.0) g/dl Globulin 3.7 gm/dL Albumin/Globulin Ratio 1.2 (1-2) Lipase 117 (73-393) U/L Meds: Medications Discontinued Medications Generic Name Dose Route Start Last Admin Trade Name Freq PRN Reason Stop Dose Admin Sodium Chloride 1,000 mls @ 999 mls/hr 09/14/17 14:45 09/14/17 14:56 Normal Saline IV 09/14/17 15:45 999 mls/hr ONETIME ONE Administration Ondansetron HCl 4 mg 09/14/17 14:45 09/14/17 14:56 Zofran IVPUSH 09/14/17 14:46 4 mg ONETIME ONE Administration - Re-Assessments/Exams Free Text/Narrative Re-Assessment/Exam: 09/14/17 14:53 The patient states that he has a history of chronic pancreatitis due to pancreas divisum. He is reporting recurrent right upper quadrant abdominal pain , along with nausea and emesis. His pain is managed per Brittani Young with oral Dilaudid. [place] last [place] for this was on 2016, 40 tablets, intended to last the patient through 09/18/2017, however, the patient acknowledges that he has taken them in excess and is out. The [place] indicates that the patient has received 217 prescriptions for controlled substances by 14 prescribers, filled at 9 different pharmacies. Further, I am formed by the nurse that the patient drove away from this facility with Dilaudid on board this past 09/07/2017, after telling staff that he had a ride. At this time, I will check some blood work and an upright abdominal radiograph to see if there are any acute problems. I have ordered IV fluid and IV Zofran, but it is not my intention to provide opioid pain medication unless there is a significant finding. 09/14/17 15:49 Upright abdominal radiograph appears to be unremarkable. 2 clips in the region of the gallbladder, consistent with laparoscopic cholecystectomy, noted. No pancreatic calcifications noted. Formal read per the Radiologist pending. 09/14/17 15:54 Test results discussed with the patient. Today's workup is entirely unremarkable , and not consistent with either acute or chronic pancreatitis. I explained to the patient that we will be discharging him home, to follow-up with either Ms. Young or Dr. Jaramillo. The patient request some frustration that he may be withdrawing from the lack of Dilaudid. I explained that the emergency department cannot go behind Ms. Young's back in giving him opioids, that if he feels he needs opioids in excess of what is prescribed, he needs to discuss that with his single prescriber, in this case, Hector. I offered to prescribe additional Zofran, but he states that he has approximately 9 tablets remaining. Departure - Departure Time of Disposition: 15:56 Disposition: Home, Self-Care 01 Condition: Good Clinical Impression: Abdominal pain of unknown etiology, Drug-seeking behavior - Discharge Information Instructions: Abdominal Pain, Adult, [id number] Referrals: Sandra Young, PER DIEM CLERK [Primary Care Provider] - Forms: ED Department Discharge Additional Instructions: You were seen in the emergency room for right upper abdominal pain, nausea, and vomiting. Workup in the ER included blood work and an upright abdominal x-ray. Your entire workup was normal, and does not explain the cause of your pain. We recommend that you follow-up with your High School Foreign Language Tutor, Dr. Jaramillo, or you PCP, Brittani Young. If any other problems, please do not hesitate to return to the ER. - My Orders Last 24 Hours: My Active Orders 09/14/17 14:52 Abdomen 1V Upright [CR] Stat - Assessment/Plan Last 24 Hours: My Active Orders 09/14/17 14:52 Abdomen 1V Upright [CR] Stat
--- NOTE | 2017-09-15 07:16 | CR ---
Abdomen: Upright view of the abdomen was obtained. Comparison: Prior CT abdomen and pelvis exam of 05/10/15. Bowel gas pattern appears normal. Surgical clips are seen from prior cholecystectomy. Calcifications are seen within the pelvis which are felt compatible with phleboliths. No free air is identified. Bony structures appear within normal limits. Impression: 1. Incidental findings. Diagnostic code #2
== END 2017-09-14 16:05 | disposition home or self-care (01) ==
LOC: JD.ED 13:47
DX: R10.11 Right upper quadrant pain (principal); F17.210 Nicotine dependence, cigarettes, uncomplicated; Z79.899 Other long term (current) drug therapy; Z76.5 Malingerer [conscious simulation]
CPT/HCPCS: 36415; 74000; 80053; 83690; 85025; 96361; 96374; 99284; J2405; J7040

== ENCOUNTER 2018-04-14 08:17 | Emergency (ER) | payer MEDICAID ==
[2018-04-14 08:23] VITALS: BP 153/96
[2018-04-14] MEDS ORDERED: Ondansetron 4 MG/2 ML SDV IVPUSH ONE (08:40)
[2018-04-14] MEDS ORDERED: Sodium Chloride 0.9% 10 ML Syringe FLUSH PRN (08:40)
[2018-04-14] MEDS ORDERED: Sodium Chloride 0.9% 1,000 ML IV STA (08:40)
[2018-04-14] MEDS ORDERED: Morphine 4 MG/ML Syringe IVPUSH ONE ×3 (08:41→11:15)
--- NOTE | 2018-04-14 08:58 | EDM.PDOC ---
ED HPI GENERAL MEDICAL PROBLEM - General Chief Complaint: Abdominal Pain Stated Complaint: ABDOMINAL PAIN Time Seen by Provider: 04/14/18 08:25 Source of Information: Reports: Patient History Limitations: Reports: No Limitations - History of Present Illness INITIAL COMMENTS - FREE TEXT/NARRATIVE: The patient presents with upper abdomen pain, nausea, and vomiting. He has a history of pancreatitis. This pain started on Friday but he was [facility] and could not come in until now. He has no fever, chills, cough, chest pain or shortness of breath. Onset: Gradual Duration: Day(s): Location: Reports: Abdomen Quality: Reports: Sharp Severity: Severe Improves with: Reports: None Worsens with: Reports: None Associated Symptoms: Reports: Nausea/Vomiting. Denies: Chest Pain, Cough, Fever /Chills, Headaches, Shortness of Breath Abdominal Pain Score (Numeric/FACES): 10 - Related Data Allergies Allergy/AdvReac Type Severity Reaction Status Date / Time cats Allergy Itching Uncoded 09/14/17 14:01 Home Meds: Home Meds Omeprazole [Prilosec] 20 mg PO BID 04/05/14 [History] Amylase/Lipase/Protease [Creon DR 24,000 Unit] 5 cap PO TIDMEALS 08/02/14 [ History] Ondansetron [Zofran ODT] 4 mg PO Q4H PRN #20 tab.dis 08/22/15 [Rx] HYDROmorphone [Dilaudid] 2 mg PO BID PRN 09/07/17 [History] Amitriptyline [Elavil] 25 mg PO DAILY 04/14/18 [History] DULoxetine [Cymbalta] 90 mg PO DAILY 04/14/18 [History] HYDROmorphone [Dilaudid] 2 mg PO Q6HR PRN #20 tab 04/14/18 [Rx] Prochlorperazine Maleate [Compazine] 10 mg PO DAILY 04/14/18 [History] Varenicline Tartrate [Chantix] 1 mg PO DAILY 04/14/18 [History] Past Medical History - Past Health History Medical/Surgical History: Denies Medical/Surgical History HEENT History: Reports: Impaired Vision Other HEENT History: wears glasses Cardiovascular History: Reports: None Respiratory History: Reports: None Gastrointestinal History: Reports: GERD, Pancreatitis Other Gastrointestinal History: Stents placed in pancrease, sphinctor of asad surgery . 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 Stone was removed last summer in May-Jun Hematologic History: Reports: None Immunologic History: Reports: None Oncologic (Cancer) History: Reports: None Dermatologic History: Reports: Other (See Below) Other Dermatologic History: allergic to cats - Infectious Disease History Infectious Disease History: Reports: Chicken Pox, Shingles - Past Surgical History Head Surgeries/Procedures: Reports: None GI Surgical History: Reports: Cholecystectomy, EGD Endocrine Surgical History: Reports: None Dermatological Surgical History: Reports: None Social & Family History - Family History Family Medical History: Unobtainable Cardiac: Reports: CAD, Stent Respiratory: Reports: None GI: Reports: None Neurological: Reports: CVA Oncologic: Reports: Breast, Other (See Below) Other Oncologic Family History: STOMACH - Tobacco Use Smoking Status *Q: Former Smoker Used Tobacco, but Quit: Yes Month/Year Tobacco Last Used: 3 weeks ago - Caffeine Use Caffeine Use: Reports: Coffee - Recreational Drug Use Recreational Drug Use: Yes Recreational Drug Type: Reports: Marijuana/Hashish - Living Situation & Occupation Living situation: Reports: Single, Alone 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[employer]) ED ROS GENERAL - Review of Systems Review Of Systems: See Below Constitutional: Reports: No Symptoms HEENT: Reports: No Symptoms Respiratory: Reports: No Symptoms Cardiovascular: Reports: No Symptoms Endocrine: Reports: No Symptoms GI/Abdominal: Reports: Abdominal Pain, Nausea, Vomiting : Reports: No Symptoms Musculoskeletal: Reports: No Symptoms Skin: Reports: No Symptoms ED EXAM, GI/ABD - Physical Exam Exam: See Below Exam Limited By: No Limitations General Appearance: Alert, No Apparent Distress Ears: Normal External Exam Nose: Normal Inspection Head: Atraumatic, Normocephalic Neck: Normal Inspection Respiratory/Chest: No Respiratory Distress, Lungs Clear, Normal Breath Sounds Cardiovascular: Regular Rate, Rhythm, No Edema, No Murmur GI/Abdominal Exam: Soft, No Organomegaly, No Mass, Tender (Moderate upper abdominal tenderness) Extremities: Normal Inspection Neurological: Alert, Oriented, No Motor/Sensory Deficits Course - Vital Signs Last Recorded V/S: Last Vital Signs Temp 97.8 F 04/14/18 08:21 Pulse 94 04/14/18 08:21 Resp 18 04/14/18 08:21 BP 153/96 H 04/14/18 08:21 Pulse Ox 98 04/14/18 08:21 - Orders/Labs/Meds Orders: Active Orders 24 hr Category Date Time Status Peripheral IV Care [RC] . DIRECTED Care 04/14/18 08:40 Active UA W/MICROSCOPIC [URIN] Stat Lab 04/14/18 11:08 Ordered Sodium Chloride 0.9% [Saline Flush] Med 04/14/18 08:40 Active 10 ml FLUSH ASDIRECTED PRN ED Antiemetic Medication Reflex [OM.PC] Stat Oth 04/14/18 08:40 Ordered Peripheral IV Insertion Adult [OM.PC] Stat Oth 04/14/18 08:40 Ordered Medication Orders Sodium Chloride (Saline Flush) 10 ml FLUSH ASDIRECTED PRN PRN Reason: Keep Vein Open Last Admin: 04/14/18 08:58 Dose: 10 ml Labs: Laboratory Tests 04/14/18 04/14/18 04/14/18 Range/Units 08:55 08:55 11:08 WBC 12.66 H (4.23-9.07) K/mm3 RBC 4.95 (4.63-6.08) M/mm3 Hgb 15.1 (13.7-17.5) gm/L Hct 44.9 (40.1-51.0) % MCV 90.7 (79.0-92.2) fl MCH 30.5 (25.7-32.2) pg MCHC 33.6 (32.2-35.5) g/dl RDW Std Deviation 44.5 H (35.1-43.9) fL Plt Count 209 (163-337) K/mm3 MPV 11.9 (9.4-12.3) fl Neut % (Auto) 70.9 H (34.0-67.9) % Lymph % (Auto) 20.1 L (21.8-53.1) % [place] % (Auto) 7.5 (5.3-12.2) % Eos % (Auto) 0.9 (0.8-7.0) Baso % (Auto) 0.4 (0.1-1.2) % Neut # (Auto) 8.98 H (1.78-5.38) K/mm3 Lymph # (Auto) 2.54 (1.32-3.57) K/mm3 [place] # (Auto) 0.95 H (0.30-0.82) K/mm3 Eos # (Auto) 0.12 (0.04-0.54) K/mm3 Baso # (Auto) 0.05 (0.01-0.08) K/mm3 Sodium 141 (136-145) mEq/L Potassium 3.6 (3.5-5.1) mEq/L Chloride 104 (98-107) mEq/L Carbon Dioxide 23 (21-32) mEq/L Anion Gap 17.6 H (5-15) BUN 11 (7-18) mg/dL Creatinine 1.0 (0.7-1.3) mg/dL Est Cr Clr Drug Dosing 123.30 mL/min Estimated GFR (MDRD) > 60 (>60) mL/min BUN/Creatinine Ratio 11.0 L (14-18) Glucose 114 H (74-106) mg/dL Calcium 9.6 (8.5-10.1) mg/dL Total Bilirubin 1.0 (0.2-1.0) mg/dL AST 18 (15-37) U/L ALT 24 (16-63) U/L Alkaline Phosphatase 75 (46-116) U/L Total Protein 7.6 (6.4-8.2) g/dl Albumin 4.4 (3.4-5.0) g/dl Globulin 3.2 gm/dL Albumin/Globulin Ratio 1.4 (1-2) Lipase 102 (73-393) U/L Urine Color Dark yellow (Yellow) Urine Appearance Clear (Clear) Urine pH 6.0 (5.0-8.0) Ur Specific [place] > or = 1.030 (1.005-1.030) Urine Protein 1+ H (Negative) Urine Glucose (UA) Negative (Negative) Urine Ketones 2+ H (Negative) Urine Occult Blood Negative (Negative) Urine Nitrite Negative (Negative) Urine Bilirubin 1+ H (Negative) Urine Urobilinogen 0.2 (0.2-1.0) Ur Leukocyte Esterase Negative (Negative) Urine RBC Not seen (0-5) /hpf Urine WBC 0-5 (0-5) /hpf Ur Epithelial Cells Not seen (0-5) /hpf Urine Bacteria Few (FEW) /hpf Urine Mucus Many H (FEW) /hpf Meds: Medications Generic Name Dose Route Start Last Admin Trade Name Makayla PRN Reason Stop Dose Admin Sodium Chloride 10 ml 04/14/18 08:40 04/14/18 08:58 Saline Flush FLUSH 10 ml ASDIRECTED PRN Administration Keep Vein Open Discontinued Medications Generic Name Dose Route Start Last Admin Trade Name Fretahir PRN Reason Stop Dose Admin Sodium Chloride 1,000 mls @ 1,000 mls/hr 04/14/18 08:40 04/14/18 08:58 Normal Saline IV 04/14/18 09:39 1,000 mls/hr .BOLUS STA Administration Sodium Chloride 1,000 mls @ 1,000 mls/hr 04/14/18 09:59 04/14/18 10:11 Normal Saline IV 04/14/18 10:58 1,000 mls/hr ONETIME ONE Administration Morphine Sulfate 4 mg 04/14/18 08:41 04/14/18 08:58 Morphine IVPUSH 04/14/18 08:42 4 mg ONETIME ONE Administration Morphine Sulfate 4 mg 04/14/18 09:59 04/14/18 10:11 Morphine IVPUSH 04/14/18 10:00 4 mg ONETIME ONE Administration Morphine Sulfate 4 mg 04/14/18 11:15 04/14/18 11:19 Morphine IVPUSH 04/14/18 11:16 4 mg ONETIME ONE Administration Ondansetron HCl 4 mg 04/14/18 08:40 04/14/18 08:58 Zofran IVPUSH 04/14/18 08:41 4 mg ONETIME ONE Administration - Re-Assessments/Exams Free Text/Narrative Re-Assessment/Exam: 04/14/18 08:57 I ordered an IV NS 1L bolus, zofran 4mg IV, labs, and UA. I also ordered him some morphine. 04/14/18 11:58 His WBC is elevated slightly at 12.66. His anion gap was elevated at 17.6. His glucose was 114. His lipase is negative. His UA shows no UTI but he does have some ketones. Departure - Departure Time of Disposition: 12:00 Disposition: Home, Self-Care 01 Condition: Good Clinical Impression: Nausea & vomiting Qualifiers: Vomiting type: unspecified Vomiting Intractability: non-intractable Qualified Code(s): R11.2 - Nausea with vomiting, unspecified Abdominal pain Qualifiers: Abdominal location: epigastric Qualified Code(s): R10.13 - Epigastric pain - Discharge Information Prescriptions: HYDROmorphone [Dilaudid] 2 mg PO Q6HR PRN #20 tab PRN Reason: Pain Referrals: Sandra Young, [employer] [Primary Care Provider] - 1 Week Forms: ED Department Discharge Additional Instructions: Drink plenty of fluids. Take your medication as prescribed. Please return if you are worse. - My Orders Last 24 Hours: My Active Orders 04/14/18 08:40 Peripheral IV Care [RC] . DIRECTED Sodium Chloride 0.9% [Saline Flush] 10 ml FLUSH ASDIRECTED PRN ED Antiemetic Medication Reflex [OM.PC] Stat Peripheral IV Insertion Adult [OM.PC] Stat 04/14/18 11:08 UA W/MICROSCOPIC [URIN] Stat - Assessment/Plan Last 24 Hours: My Active Orders 04/14/18 08:40 Peripheral IV Care [RC] . DIRECTED Sodium Chloride 0.9% [Saline Flush] 10 ml FLUSH ASDIRECTED PRN ED Antiemetic Medication Reflex [OM.PC] Stat Peripheral IV Insertion Adult [OM.PC] Stat 04/14/18 11:08 UA W/MICROSCOPIC [URIN] Stat
[2018-04-14] MEDS ORDERED: Sodium Chloride 0.9% 1,000 ML IV ONE (09:59)
== END 2018-04-14 12:25 | disposition home or self-care (01) ==
LOC: JD.ED 08:17
DX: R10.13 Epigastric pain (principal); R11.2 Nausea with vomiting, unspecified; Z79.899 Other long term (current) drug therapy; Z87.891 Personal history of nicotine dependence
CPT/HCPCS: 36415; 80053; 81001; 83690; 85025; 96361; 96374; 96375; 96376; 99284; J2270; J2405; J7040; J7050; 99283

== ENCOUNTER 2018-04-27 09:10 | Emergency (ER) | payer MEDICAID ==
[2018-04-27 09:29] VITALS: BP 146/85
[2018-04-27] MEDS ORDERED: Sodium Chloride 0.9% 10 ML Syringe FLUSH PRN (09:39)
[2018-04-27] MEDS ORDERED: HYDROmorphone 0.5 MG/0.5 ML SYRINGE IVPUSH ONE ×3 (09:48→12:25)
[2018-04-27] MEDS ORDERED: Ondansetron 4 MG/2 ML SDV IVPUSH ONE (09:49)
[2018-04-27] MEDS ORDERED: Famotidine 20 MG/2 ML SDV IVPUSH ONE (09:49)
[2018-04-27] MEDS: Sodium Chloride 0.9% 1,000 ML IV SCH ×2 (09:56→11:11)
--- NOTE | 2018-04-27 10:04 | EDM.PDOC ---
<GeorgeJazmin - Last Filed: 04/27/18 10:30> ED HPI GENERAL MEDICAL PROBLEM - General Chief Complaint: Abdominal Pain Stated Complaint: PANCREATITIS FLARE UP Time Seen by Provider: 04/27/18 09:38 Source of Information: Reports: Patient History Limitations: Reports: No Limitations - History of Present Illness INITIAL COMMENTS - FREE TEXT/NARRATIVE: 32 yo male presents for a flare up of chronic pancreatitis. He was last seen 2 weeks ago for the same condition. He believes his pancreatitis coincides with weather patterns, he denies alcohol use or change in diet. He said Brittani Young used to be his PCP and he spoke to her on his MyChart this morning and she advised him to come to the ED. He is looking for a new PCP as well as GI specialist. 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 He has taken oral Dilaudid 4 hours ago with minimal relief. He reports associated nausea and vomiting and has not had anything to eat or drink since Friday. Onset: Sudden Duration: Day(s): (3 days ago), Getting Worse, Waxing/Waning Location: Reports: Abdomen Quality: Reports: Sharp Severity: Moderate Improves with: Reports: None Worsens with: Reports: None Associated Symptoms: Reports: Nausea/Vomiting Treatments OFFICE COMMUNICATION PROFESSOR: Reports: Other (see below) (PO Dilaudid at home) abdominal Pain Score (Numeric/FACES): 9 - Related Data Allergies Allergy/AdvReac Type Severity Reaction Status Date / Time cats Allergy Itching Uncoded 04/27/18 09:26 Home Meds: Home Meds Omeprazole [Prilosec] 20 mg PO BID 04/05/14 [History] Amylase/Lipase/Protease [Angel DR 24,000 Unit] 5 cap PO TIDMEALS 08/02/14 [ History] Ondansetron [Zofran ODT] 4 mg PO Q4H PRN #20 tab.dis 08/22/15 [Rx] HYDROmorphone [Dilaudid] 2 mg PO BID PRN 09/07/17 [History] Amitriptyline [Elavil] 25 mg PO DAILY 04/14/18 [History] DULoxetine [Cymbalta] 90 mg PO DAILY 04/14/18 [History] HYDROmorphone [Dilaudid] 2 mg PO Q6HR PRN #20 tab 04/14/18 [Rx] Prochlorperazine Maleate [Compazine] 10 mg PO DAILY 04/14/18 [History] Varenicline Tartrate [Chantix] 1 mg PO DAILY 04/14/18 [History] Past Medical History - Past Health History Medical/Surgical History: Denies Medical/Surgical History HEENT History: Reports: Impaired Vision Other HEENT History: wears glasses Cardiovascular History: Reports: None Respiratory History: Reports: None Gastrointestinal History: Reports: GERD, Pancreatitis Other Gastrointestinal History: Stents placed in pancrease, sphinctor of asad surgery . 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 Stone was removed last summer in May-Jun Hematologic History: Reports: None Immunologic History: Reports: None Oncologic (Cancer) History: Reports: None Dermatologic History: Reports: Other (See Below) Other Dermatologic History: allergic to cats - Infectious Disease History Infectious Disease History: Reports: Chicken Pox, Shingles - Past Surgical History Head Surgeries/Procedures: Reports: None GI Surgical History: Reports: Cholecystectomy, EGD Endocrine Surgical History: Reports: None Dermatological Surgical History: Reports: None Social & Family History - Family History Family Medical History: Noncontributory Cardiac: Reports: CAD, Stent Respiratory: Reports: None GI: Reports: None Neurological: Reports: CVA Oncologic: Reports: Breast, Other (See Below) Other Oncologic Family History: STOMACH - Tobacco Use Smoking Status *Q: Current Every Day Smoker Years of Tobacco use: 12 Packs/Tins Daily: 0.2 - Caffeine Use Caffeine Use: Reports: None - Recreational Drug Use Recreational Drug Use: No - Living Situation & Occupation Living situation: Reports: Single, Alone 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[employer] - Review of Systems Review Of Systems: See Below Constitutional: Reports: Fever, Chills, Malaise, Decreased Appetite HEENT: Reports: No Symptoms Respiratory: Reports: No Symptoms Cardiovascular: Reports: No Symptoms GI/Abdominal: Reports: Abdominal Pain, Nausea, Vomiting : Reports: No Symptoms Musculoskeletal: Reports: No Symptoms Skin: Reports: No Symptoms Neurological: Reports: No Symptoms ED EXAM, GI/ABD - Physical Exam Exam: See Below Exam Limited By: No Limitations General Appearance: Alert, WD/WN, Anxious, Mild Distress Ears: Normal External Exam, Hearing Grossly Normal Throat/Mouth: Normal Inspection, Normal Oropharynx Head: Atraumatic, Normocephalic Neck: Normal Inspection, Supple, Full Range of Motion Respiratory/Chest: No Respiratory Distress, Lungs Clear, Normal Breath Sounds, No Accessory Muscle Use Cardiovascular: Regular Rate, Rhythm, No Edema, No Gallop, No Murmur, No Rub GI/Abdominal Exam: Soft, No Distention, Guarding, Tender (Upper Right Quadrant and Epigastric region). No: Rebound Neurological: Alert, Oriented, Normal Cognition Psychiatric: Anxious Skin Exam: Warm, Dry, Intact, Normal Color Course - Vital Signs Last Recorded V/S: Last Vital Signs Temp 97.6 F 04/27/18 09:26 Pulse 123 H 04/27/18 09:26 Resp 18 04/27/18 09:26 BP 146/85 H 04/27/18 09:26 Pulse Ox 98 04/27/18 09:26 - Orders/Labs/Meds Orders: Active Orders 24 hr Category Date Time Status Peripheral IV Care [RC] . DIRECTED Care 04/27/18 09:39 Active Peripheral IV Insertion Adult [OM.PC] Stat Oth 04/27/18 09:39 Ordered Labs: Laboratory Tests 04/27/18 04/27/18 Range/Units 10:00 10:00 WBC 16.28 H (4.23-9.07) K/mm3 RBC 5.17 (4.63-6.08) M/mm3 Hgb 15.8 (13.7-17.5) gm/L Hct 47.5 (40.1-51.0) % MCV 91.9 (79.0-92.2) fl MCH 30.6 (25.7-32.2) pg MCHC 33.3 (32.2-35.5) g/dl RDW Std Deviation 44.7 H (35.1-43.9) fL Plt Count 200 (163-337) K/mm3 MPV 11.3 (9.4-12.3) fl Neut % (Auto) 79.7 H (34.0-67.9) % Lymph % (Auto) 13.9 L (21.8-53.1) % [place] % (Auto) 5.0 L (5.3-12.2) % Eos % (Auto) 1.0 (0.8-7.0) Baso % (Auto) 0.2 (0.1-1.2) % Neut # (Auto) 12.95 H (1.78-5.38) K/mm3 Lymph # (Auto) 2.27 (1.32-3.57) K/mm3 [place] # (Auto) 0.82 (0.30-0.82) K/mm3 Eos # (Auto) 0.17 (0.04-0.54) K/mm3 Baso # (Auto) 0.04 (0.01-0.08) K/mm3 Sodium 145 (136-145) mEq/L Potassium 4.0 (3.5-5.1) mEq/L Chloride 109 H (98-107) mEq/L Carbon Dioxide 25 (21-32) mEq/L Anion Gap 15.0 (5-15) BUN 12 (7-18) mg/dL Creatinine 1.0 (0.7-1.3) mg/dL Est Cr Clr Drug Dosing 123.30 mL/min Estimated GFR (MDRD) > 60 (>60) mL/min BUN/Creatinine Ratio 12.0 L (14-18) Glucose 116 H (74-106) mg/dL Calcium 9.4 (8.5-10.1) mg/dL Total Bilirubin 0.7 (0.2-1.0) mg/dL AST 12 L (15-37) U/L ALT 20 (16-63) U/L Alkaline Phosphatase 73 (46-116) U/L Total Protein 7.7 (6.4-8.2) g/dl Albumin 4.5 (3.4-5.0) g/dl Globulin 3.2 gm/dL Albumin/Globulin Ratio 1.4 (1-2) Amylase 63 (25-115) U/L Lipase 424 H (73-393) U/L Meds: Medications Discontinued Medications Generic Name Dose Route Start Last Admin Trade Name Freq PRN Reason Stop Dose Admin Famotidine 20 mg 04/27/18 09:49 04/27/18 09:56 Pepcid IVPUSH 04/27/18 09:50 20 mg ONETIME ONE Administration Hydromorphone HCl 1 mg 04/27/18 09:48 04/27/18 09:56 Dilaudid IVPUSH 04/27/18 09:49 1 mg ONETIME ONE Administration Hydromorphone HCl 0.5 mg 04/27/18 11:03 04/27/18 11:12 Dilaudid IVPUSH 04/27/18 11:04 0.5 mg ONETIME ONE Administration Hydromorphone HCl 0.5 mg 04/27/18 12:25 04/27/18 12:39 Dilaudid IVPUSH 04/27/18 12:26 0.5 mg ONETIME ONE Administration Sodium Chloride 1,000 mls @ 999 mls/hr 04/27/18 10:00 04/27/18 11:11 Normal Saline IV 999 mls/hr ONETIME MACHELLE Administration Sodium Chloride 1,000 mls @ 999 mls/hr 04/27/18 11:15 04/27/18 11:20 Normal Saline IV 999 mls/hr ONETIME MACHELLE Administration Ondansetron HCl 4 mg 04/27/18 09:49 04/27/18 09:56 Zofran IVPUSH 04/27/18 09:50 4 mg ONETIME ONE Administration Sodium Chloride 10 ml 04/27/18 09:39 04/27/18 09:50 Saline Flush FLUSH 10 ml ASDIRECTED PRN Administration Keep Vein Open Departure - Departure Disposition: Home, Self-Care 01 Clinical Impression: Pancreatitis - Discharge Information Instructions: Acute Pancreatitis, [id number] Referrals: Sandra Young, [employer]OR [Primary Care Provider] - Forms: ED Department Discharge Additional Instructions: clear liquids until later this afternoon, than very careful bland diet as tolerated. Continue current meds as previously prescribed. Follow up clinic in not much better within 1 to 2 days. Return to ED as needed. - My Orders Last 24 Hours: My Active Orders 04/27/18 09:39 Peripheral IV Care [RC] . DIRECTED Peripheral IV Insertion Adult [OM.PC] Stat - Assessment/Plan Last 24 Hours: My Active Orders 04/27/18 09:39 Peripheral IV Care [RC] . DIRECTED Peripheral IV Insertion Adult [OM.PC] Stat <Eric Pro - Last Filed: 04/27/18 16:14> Course - Re-Assessments/Exams Free Text/Narrative Re-Assessment/Exam: 04/27/18 11:37 initial eval done by SHERYL Harris student. I agree with her hx and exam as documented. I have also evaluated patient. He still had not voided after initial bolus 1 liter NS so we are giving another liter. Pain starting to come back, will give a further 0.5 mg dose dilaudid IV. Labs are as documented. Lipase very slightly elevated, amylase normal. Destinee did call his regular provider for further info regarding narcotic prescribing, usage. Patient is making it sound like we should be prescribing extra dilaudid for him because "he is out" This has happened in the past, he currently is given 7 day supply at a time, he is overusing and than coming to the ED. He has hx of being manipulative. I have explained that we have a policy that prohibits us from prescribing for chronic pain, further supplementing what has already been prescribed by his regular provider. Departure - Departure Time of Disposition: 11:39 Condition: Fair
[2018-04-27] MEDS ORDERED: Sodium Chloride 0.9% 1,000 ML IV SCH (11:15)
== END 2018-04-27 13:08 | disposition home or self-care (01) ==
LOC: JD.ED 09:10
DX: K86.1 Other chronic pancreatitis (principal); K21.9 Gastro-esophageal reflux disease without esophagitis; F32.9 Major depressive disorder, single episode, unspecified; F41.9 Anxiety disorder, unspecified; F17.210 Nicotine dependence, cigarettes, uncomplicated; Z79.899 Other long term (current) drug therapy
CPT/HCPCS: 36415; 80053; 82150; 83690; 85025; 96361; 96374; 96375; 96376; 99284; J1170; J2405; J7040; J7050

== ENCOUNTER 2018-06-28 15:24 | Emergency (ER) | payer SELFPAY ==
[2018-06-28 15:36] VITALS: BP 140/113
[2018-06-28] MEDS ORDERED: HYDROmorphone 1 MG/ML Syringe IVPUSH ONE ×2 (15:45→16:14)
[2018-06-28] MEDS ORDERED: Sodium Chloride 0.9% 1,000 ML IV ONE ×2 (15:45→17:04)
[2018-06-28] MEDS ORDERED: Metoclopramide 10 MG/2 ML SDV IVPUSH ONE (15:45)
--- NOTE | 2018-06-28 15:56 | EDM.PDOC ---
ED HPI GENERAL MEDICAL PROBLEM - General Chief Complaint: Abdominal Pain Stated Complaint: STOMACH PAIN THROWING UP Time Seen by Provider: 06/28/18 15:38 Source of Information: Reports: Patient History Limitations: Reports: No Limitations - History of Present Illness INITIAL COMMENTS - FREE TEXT/NARRATIVE: Patient is a 32-year-old afebrile male who presents ED complaining of right upper quadrant/epigastric pain. Patient states this started this morning and has been waxing waning since onset. He has a history of chronic pancreatitis and states this is similar to previous episodes. He did take 2 mg of Dilaudid, Zofran and Compazine this morning with no significant changes. He was seen in the ED 5 days ago for similar symptoms. He received Dilaudid, IV fluids, and Reglan with significant improvements to his symptoms. He's vomited a few times. States she's been worked up extensively at the [facility] with this diagnosis. He has not consumed any alcohol for 6 years. Denies any ingestion of any fatty foods that may have contributed to the discomfort. He does have some slight acid reflux. This is normal for him. Denies any fever/chills, shortness of breath, chest pain, diarrhea, constipation, blood in stool, dysuria, dizziness, lightheadedness, or any additional complaints. Right Upper Abdomen Pain Score (Numeric/FACES): 7 - Related Data Allergies Allergy/AdvReac Type Severity Reaction Status Date / Time cats Allergy Itching Uncoded 04/27/18 09:26 Home Meds: Home Meds Omeprazole [Prilosec] 20 mg PO BID 04/05/14 [History] Amylase/Lipase/Protease [Angel PITTMAN 24,000 Unit] 5 cap PO TIDMEALS 08/02/14 [ History] Ondansetron [Zofran ODT] 4 mg PO Q4H PRN #20 tab.dis 08/22/15 [Rx] Amitriptyline [Elavil] 25 mg PO DAILY 04/14/18 [History] DULoxetine [Cymbalta] 90 mg PO DAILY 04/14/18 [History] HYDROmorphone [Dilaudid] 2 mg PO Q6HR PRN #20 tab 04/14/18 [Rx] Prochlorperazine Maleate [Compazine] 10 mg PO DAILY 04/14/18 [History] Varenicline Tartrate [Chantix] 1 mg PO DAILY 04/14/18 [History] Past Medical History - Past Health History Medical/Surgical History: Denies Medical/Surgical History HEENT History: Reports: Impaired Vision Other HEENT History: wears glasses Cardiovascular History: Reports: None Respiratory History: Reports: None Gastrointestinal History: Reports: GERD, Pancreatitis Other Gastrointestinal History: Stents placed in pancrease, sphinctor of asad surgery . 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 Stone was removed last summer in May-Jun Hematologic History: Reports: None Immunologic History: Reports: None Oncologic (Cancer) History: Reports: None Dermatologic History: Reports: Other (See Below) Other Dermatologic History: allergic to cats - Infectious Disease History Infectious Disease History: Reports: Chicken Pox, Shingles - Past Surgical History Head Surgeries/Procedures: Reports: None GI Surgical History: Reports: Cholecystectomy, EGD Endocrine Surgical History: Reports: None Dermatological Surgical History: Reports: None Social & Family History - Family History Family Medical History: Noncontributory Cardiac: Reports: CAD, Stent Respiratory: Reports: None GI: Reports: None Neurological: Reports: CVA Oncologic: Reports: Breast, Other (See Below) Other Oncologic Family History: STOMACH - Tobacco Use Smoking Status *Q: Former Smoker Used Tobacco, but Quit: Yes Month/Year Tobacco Last Used: 3 weeks - Caffeine Use Caffeine Use: Reports: None - Recreational Drug Use Recreational Drug Type: Reports: Marijuana/Hashish, Other (see below) Other Recreational Drug Type: 1-2 times weekly - Living Situation & Occupation Living situation: Reports: Single, Alone 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[employer] GENERAL - Review of Systems Review Of Systems: See Below Constitutional: Denies: Fever, Chills, Malaise, Decreased Appetite HEENT: Reports: No Symptoms Respiratory: Reports: No Symptoms Cardiovascular: Reports: No Symptoms GI/Abdominal: Reports: Abdominal Pain, Nausea, Vomiting. Denies: Black Stool, Bloody Stool, Constipation, Diarrhea, Decreased Appetite, Difficulty Swallowing , Distension, Flatus, Hematemesis, Hematochezia : Reports: No Symptoms Musculoskeletal: Reports: No Symptoms Skin: Reports: No Symptoms Neurological: Reports: No Symptoms Psychiatric: Reports: Anxiety ED EXAM, GI/ABD - Physical Exam Exam: See Below Exam Limited By: No Limitations General Appearance: Alert, WD/WN, Moderate Distress Ears: Hearing Grossly Normal Nose: Normal Inspection Throat/Mouth: Normal Voice, No Airway Compromise Head: Atraumatic, Normocephalic Neck: Normal Inspection, Supple Respiratory/Chest: No Respiratory Distress, Lungs Clear, Normal Breath Sounds, Chest Non-Tender Cardiovascular: Normal Peripheral Pulses, Regular Rate, Rhythm, No Murmur GI/Abdominal Exam: Normal Bowel Sounds, Soft, No Organomegaly, No Distention, Tender (RUQ, +martin sign. Pain to the epigastric region. ) (Male) Exam: Deferred (no complaints) Back Exam: Normal Inspection. No: CVA Tenderness (L), CVA Tenderness (R) Extremities: Normal Inspection Neurological: Alert, Oriented, CN II-XII Intact, Normal Cognition, No Motor/ Sensory Deficits Psychiatric: Normal Affect, Anxious Skin Exam: Warm, Dry, Diaphoretic Course - Vital Signs Last Recorded V/S: Last Vital Signs Temp 97.5 F 06/28/18 15:35 Pulse 126 H 06/28/18 15:35 Resp 20 06/28/18 15:35 BP 140/113 H 06/28/18 15:35 Pulse Ox 98 06/28/18 15:35 - Orders/Labs/Meds Orders: Active Orders 24 hr Category Date Time Status Abdomen 2V AP Flat Upright [CR] Stat Exams 06/28/18 15:45 Taken DRUG SCREEN, URINE [URCHEM] Stat Lab 06/28/18 17:05 Ordered Labs: Laboratory Tests 06/28/18 06/28/18 06/28/18 Range/Units 15:50 15:50 16:00 WBC 14.79 H (4.23-9.07) K/mm3 RBC 5.16 (4.63-6.08) M/mm3 Hgb 15.7 (13.7-17.5) gm/L Hct 47.1 (40.1-51.0) % MCV 91.3 (79.0-92.2) fl MCH 30.4 (25.7-32.2) pg MCHC 33.3 (32.2-35.5) g/dl RDW Std Deviation 44.8 H (35.1-43.9) fL Plt Count 247 (163-337) K/mm3 MPV 11.3 (9.4-12.3) fl Neutrophils % (Manual) 71 H (40-60) % Band Neutrophils % 0 (0-10) % Lymphocytes % (Manual) 22 (20-40) % Atypical Lymphs % 0 % Monocytes % (Manual) 3 (2-10) % Eosinophils % (Manual) 2 (0.8-7.0) % Basophils % (Manual) 2 H (0.2-1.2) Platelet Estimate Adequate Plt Morphology Comment Normal RBC Morph Comment Normal Sodium 147 H (136-145) mEq/L Potassium 4.2 (3.5-5.1) mEq/L Chloride 108 H (98-107) mEq/L Carbon Dioxide 26 (21-32) mEq/L Anion Gap 17.2 H (5-15) BUN 10 (7-18) mg/dL Creatinine 0.9 (0.7-1.3) mg/dL Est Cr Clr Drug Dosing 137.00 mL/min Estimated GFR (MDRD) > 60 (>60) mL/min BUN/Creatinine Ratio 11.1 L (14-18) Glucose 114 H (74-106) mg/dL Lactic Acid 1.2 (0.4-2.0) mmol/L Calcium 9.3 (8.5-10.1) mg/dL Total Bilirubin 0.4 (0.2-1.0) mg/dL AST 13 L (15-37) U/L ALT 22 (16-63) U/L Alkaline Phosphatase 87 (46-116) U/L C-Reactive Protein < 0.2 (<1.0) mg/dL Total Protein 7.8 (6.4-8.2) g/dl Albumin 4.4 (3.4-5.0) g/dl Globulin 3.4 gm/dL Albumin/Globulin Ratio 1.3 (1-2) Lipase 122 (73-393) U/L Urine Color (Yellow) Urine Appearance (Clear) Urine pH (5.0-8.0) Ur Specific [place] (1.005-1.030) Urine Protein (Negative) Urine Glucose (UA) (Negative) Urine Ketones (Negative) Urine Occult Blood (Negative) Urine Nitrite (Negative) Urine Bilirubin (Negative) Urine Urobilinogen (0.2-1.0) Ur Leukocyte Esterase (Negative) Urine RBC (0-5) /hpf Urine WBC (0-5) /hpf Ur Epithelial Cells (0-5) /hpf Urine Bacteria (FEW) /hpf Urine Mucus (FEW) /hpf Urine Opiates Screen (NEGATIVE) Ur Buprenorphine Scrn (NEGATIVE) Ur Oxycodone Screen (NEGATIVE) Urine Methadone Screen (NEGATIVE) Ur Propoxyphene Screen (NEGATIVE) Ur Barbiturates Screen (NEGATIVE) Ur Tricyclics Screen (NEGATIVE) Ur Phencyclidine Scrn (NEGATIVE) Ur Amphetamine Screen (NEGATIVE) U Methamphetamines Scrn (NEGATIVE) U Benzodiazepines Scrn (NEGATIVE) U Cocaine Metab Screen (NEGATIVE) U Marijuana (THC) Screen (NEGATIVE) Ethyl Alcohol 0.00 (0.00) gm% 06/28/18 06/28/18 Range/Units 17:05 17:05 WBC (4.23-9.07) K/mm3 RBC (4.63-6.08) M/mm3 Hgb (13.7-17.5) gm/L Hct (40.1-51.0) % MCV (79.0-92.2) fl MCH (25.7-32.2) pg MCHC (32.2-35.5) g/dl RDW Std Deviation (35.1-43.9) fL Plt Count (163-337) K/mm3 MPV (9.4-12.3) fl Neutrophils % (Manual) (40-60) % Band Neutrophils % (0-10) % Lymphocytes % (Manual) (20-40) % Atypical Lymphs % % Monocytes % (Manual) (2-10) % Eosinophils % (Manual) (0.8-7.0) % Basophils % (Manual) (0.2-1.2) Platelet Estimate Plt Morphology Comment RBC Morph Comment Sodium (136-145) mEq/L Potassium (3.5-5.1) mEq/L Chloride (98-107) mEq/L Carbon Dioxide (21-32) mEq/L Anion Gap (5-15) BUN (7-18) mg/dL Creatinine (0.7-1.3) mg/dL Est Cr Clr Drug Dosing mL/min Estimated GFR (MDRD) (>60) mL/min BUN/Creatinine Ratio (14-18) Glucose (74-106) mg/dL Lactic Acid (0.4-2.0) mmol/L Calcium (8.5-10.1) mg/dL Total Bilirubin (0.2-1.0) mg/dL AST (15-37) U/L ALT (16-63) U/L Alkaline Phosphatase (46-116) U/L C-Reactive Protein (<1.0) mg/dL Total Protein (6.4-8.2) g/dl Albumin (3.4-5.0) g/dl Globulin gm/dL Albumin/Globulin Ratio (1-2) Lipase (73-393) U/L Urine Color Yellow (Yellow) Urine Appearance Slt cloudy H (Clear) Urine pH 7.0 (5.0-8.0) Ur Specific [place] 1.025 (1.005-1.030) Urine Protein 1+ H (Negative) Urine Glucose (UA) Negative (Negative) Urine Ketones Negative (Negative) Urine Occult Blood Negative (Negative) Urine Nitrite Negative (Negative) Urine Bilirubin 1+ H (Negative) Urine Urobilinogen 0.2 (0.2-1.0) Ur Leukocyte Esterase Negative (Negative) Urine RBC 0-5 (0-5) /hpf Urine WBC 0-5 (0-5) /hpf Ur Epithelial Cells 0-5 (0-5) /hpf Urine Bacteria Few (FEW) /hpf Urine Mucus Many H (FEW) /hpf Urine Opiates Screen Presumptive positive H (NEGATIVE) Ur Buprenorphine Scrn Negative (NEGATIVE) Ur Oxycodone Screen Presumptive positive H (NEGATIVE) Urine Methadone Screen Negative (NEGATIVE) Ur Propoxyphene Screen Negative (NEGATIVE) Ur Barbiturates Screen Negative (NEGATIVE) Ur Tricyclics Screen Presumptive positive H (NEGATIVE) Ur Phencyclidine Scrn Negative (NEGATIVE) Ur Amphetamine Screen Negative (NEGATIVE) U Methamphetamines Scrn Negative (NEGATIVE) U Benzodiazepines Scrn Negative (NEGATIVE) U Cocaine Metab Screen Negative (NEGATIVE) U Marijuana (THC) Screen Presumptive positive H (NEGATIVE) Ethyl Alcohol (0.00) gm% Meds: Medications Discontinued Medications Generic Name Dose Route Start Last Admin Trade Name Freq PRN Reason Stop Dose Admin Hydromorphone HCl 1 mg 06/28/18 15:45 06/28/18 15:55 Dilaudid IVPUSH 08/12/18 15:46 1 mg ONETIME ONE Administration Hydromorphone HCl 1 mg 06/28/18 16:14 06/28/18 16:21 Dilaudid IVPUSH 06/28/18 16:15 1 mg ONETIME ONE Administration Sodium Chloride 1,000 mls @ 999 mls/hr 06/28/18 15:45 06/28/18 15:55 Normal Saline IV 06/28/18 16:45 999 mls/hr ONETIME ONE Administration Sodium Chloride 1,000 mls @ 999 mls/hr 06/28/18 17:04 Normal Saline IV 06/28/18 18:04 ONETIME ONE Metoclopramide HCl 10 mg 06/28/18 15:45 06/28/18 15:55 Reglan IVPUSH 06/28/18 15:46 10 mg ONETIME ONE Administration Promethazine HCl 25 mg 06/28/18 16:14 06/28/18 16:21 Phenergan IM 06/28/18 16:15 25 mg ONETIME ONE Administration - Re-Assessments/Exams Free Text/Narrative Re-Assessment/Exam: IV established with normal saline 999 mils per hour, Dilaudid 1 mg IVP, and Reglan 10 mg IVP. Initial labs and studies will include: CBC, chem 14, CRP, a urine drug screen, lactic acid, lipase, UA, EtOH, 2 view flat and upright. X-ray of the abdomen revealed non specific air and stool pattern. NO acute findings. Reviewed with Dr. Ye. 06/28/18 16:14 Patient continues to vomit and have pain. Ordered dilaudid 1mg IVP and phenergan 25mg IM. Labs reviewed. No concerning findings. 1715 Patient is feeling much better. He is ready to be discharged home. Discharge instructions as documented. The patient remained hemodynamically stable while under my care in the E.D. I discussed the concerning symptoms for which to return to the E.D. with the patient. The patient verbalized understanding. All questions were answered. Toxicology screen positive for opiates, oxycodone, tricyclics, and marijuana. Etoh 0.00. Departure - Departure Time of Disposition: 17:28 Disposition: Home, Self-Care 01 Condition: Good Clinical Impression: Acute on chronic pancreatitis Chronic pancreatitis Qualifiers: Pancreatitis type: unspecified pancreatitis type Qualified Code(s): K86.1 - Other chronic pancreatitis - Discharge Information Instructions: Chronic Pancreatitis Referrals: Sandra Young [facility] [Primary Care Provider] - Forms: ED Department Discharge Additional Instructions: No driving this evening since receiving a sedative medication while in the ED. Please continue taking all your home medications as prescribed. Push the fluids. Follow-up with PCP in the next 3-5 days as needed for reevaluation. Please return back to the ED if you should develop any new or worsening symptoms. - My Orders Last 24 Hours: My Active Orders 06/28/18 15:45 Abdomen 2V AP Flat Upright [CR] Stat 06/28/18 17:05 DRUG SCREEN, URINE [URCHEM] Stat - Assessment/Plan Last 24 Hours: My Active Orders 06/28/18 15:45 Abdomen 2V AP Flat Upright [CR] Stat 06/28/18 17:05 DRUG SCREEN, URINE [URCHEM] Stat
[2018-06-28] MEDS ORDERED: Promethazine 25 MG/ML SDV IM ONE (16:14)
--- NOTE | 2018-06-29 10:49 | CR ---
Abdomen: Supine and upright views of the abdomen were obtained. Comparison: Prior abdominal x-ray of 09/14/17. Surgical clips are seen prior cholecystectomy. Bowel gas pattern is normal. Calcifications are seen within the pelvis which are felt compatible with phleboliths. No free air is seen. Bony structures are unremarkable. Impression: 1. Incidental findings. Diagnostic code #2
== END 2018-06-28 17:36 | disposition home or self-care (01) ==
LOC: JD.ED 15:24
DX: K85.90 Acute pancreatitis without necrosis or infection, unspecified (principal); K86.1 Other chronic pancreatitis; Z87.891 Personal history of nicotine dependence
CPT/HCPCS: 36415; 74019; 80053; 80306; 81001; 83605; 83690; 85007; 85027; 86140; 96361; 96372; 96374; 96375; 99284; G0480; J1170; J2550; J2765; J7040

== ENCOUNTER 2018-07-01 09:55 | Emergency (ER) | payer SELFPAY ==
[2018-07-01 10:08] VITALS: BP 141/127
--- NOTE | 2018-07-01 11:30 | EDM.PDOC ---
ED HPI GENERAL MEDICAL PROBLEM - General Chief Complaint: Drug or Alcohol Abuse Stated Complaint: WITHDRAWL FROM PAIN MEDS Time Seen by Provider: 07/01/18 11:04 Source of Information: Reports: Patient History Limitations: Reports: No Limitations - History of Present Illness INITIAL COMMENTS - FREE TEXT/NARRATIVE: Patient is a 32-year-old male with a history of chronic pancreatitis and chronic narcotic use who presents to the ED complaining of having pain everywhere. Patient states he ran out of his Dilaudid at home and is now withdrawing. He last took Dilaudid at 7:00 yesterday morning. He has been in contact with his primary doctor who takes care of his narcotic prescriptions. They are unable to fill his meds at this point. They are working on it. He feels like he is withdrawing. He claims his skin is crawling. He is mildly anxious. He is complaining of some mild pancreatic pain rated 5 out of 10. Consistent with previous episodes. He went to the clinic today and received IV fluids. Patient left once they were not going to give him any pain medications. He admits to smoking marijuana. No alcohol use. States he's been eating and drinking okay. There's been no nausea or vomiting, fever, chest pain, shortness of breath, diarrhea, blood in stool, dysuria, dizziness, or any additional complaints. He is wishing to get a prescription for Dilaudid to help his pain until his next prescription is in. Right Upper Abdomen Pain Score (Numeric/FACES): 7 - Related Data Allergies Allergy/AdvReac Type Severity Reaction Status Date / Time cats Allergy Itching Uncoded 04/27/18 09:26 Home Meds: Home Meds Omeprazole [Prilosec] 20 mg PO BID 04/05/14 [History] Amylase/Lipase/Protease [Angel PITTMAN 24,000 Unit] 5 cap PO TIDMEALS 08/02/14 [ History] Ondansetron [Zofran ODT] 4 mg PO Q4H PRN #20 tab.dis 08/22/15 [Rx] Amitriptyline [Elavil] 25 mg PO DAILY 04/14/18 [History] DULoxetine [Cymbalta] 90 mg PO DAILY 04/14/18 [History] HYDROmorphone [Dilaudid] 2 mg PO Q6HR PRN #20 tab 04/14/18 [Rx] Prochlorperazine Maleate [Compazine] 10 mg PO DAILY 04/14/18 [History] Varenicline Tartrate [Chantix] 1 mg PO DAILY 04/14/18 [History] Past Medical History - Past Health History Medical/Surgical History: Denies Medical/Surgical History HEENT History: Reports: Impaired Vision Other HEENT History: wears glasses Cardiovascular History: Reports: None Respiratory History: Reports: None Gastrointestinal History: Reports: GERD, Pancreatitis Other Gastrointestinal History: Stents placed in pancrease, sphinctor of asad surgery . 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 Stone was removed last summer in May-Jun Hematologic History: Reports: None Immunologic History: Reports: None Oncologic (Cancer) History: Reports: None Dermatologic History: Reports: Other (See Below) Other Dermatologic History: allergic to cats - Infectious Disease History Infectious Disease History: Reports: Chicken Pox, Shingles - Past Surgical History Head Surgeries/Procedures: Reports: None GI Surgical History: Reports: Cholecystectomy, EGD Endocrine Surgical History: Reports: None Dermatological Surgical History: Reports: None Social & Family History - Family History Family Medical History: Noncontributory Cardiac: Reports: CAD, Stent Respiratory: Reports: None GI: Reports: None Neurological: Reports: CVA Oncologic: Reports: Breast, Other (See Below) Other Oncologic Family History: STOMACH - Tobacco Use Smoking Status *Q: Former Smoker Used Tobacco, but Quit: Yes Month/Year Tobacco Last Used: 05/2018 - Caffeine Use Caffeine Use: Reports: None - Recreational Drug Use Recreational Drug Use: Yes Drug Use in Last 12 Months: Yes Recreational Drug Type: Reports: Marijuana/Hashish Recreational Drug Use Frequency: Weekly - Living Situation & Occupation Living situation: Reports: Single, Alone 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[employer]) [employer] GENERAL - Review of Systems Review Of Systems: See Below Constitutional: Reports: No Symptoms HEENT: Reports: No Symptoms Respiratory: Reports: No Symptoms Cardiovascular: Reports: No Symptoms GI/Abdominal: Reports: Abdominal Pain. Denies: Anorexia, Black Stool, Bloody Stool, Constipation, Diarrhea, Decreased Appetite, Distension, Flatus, Hematemesis, Nausea, Vomiting Musculoskeletal: Reports: No Symptoms Skin: Reports: No Symptoms Neurological: Reports: No Symptoms Psychiatric: Reports: Anxiety (mild), Cravings (Ran out of narcotics. ). Denies : Hallucinations, Homicidal Ideation, Suicidal Ideation ED EXAM, GI/ABD - Physical Exam Exam: See Below Exam Limited By: No Limitations General Appearance: Alert, WD/WN, Anxious Eyes: Bilateral: Normal Appearance Ears: Hearing Grossly Normal Nose: Normal Inspection Throat/Mouth: Normal Inspection, Normal Oropharynx, Normal Voice, No Airway Compromise Head: Atraumatic, Normocephalic Neck: Normal Inspection, Supple Respiratory/Chest: No Respiratory Distress, Lungs Clear, Normal Breath Sounds, Chest Non-Tender Cardiovascular: Normal Peripheral Pulses, Regular Rate, Rhythm GI/Abdominal Exam: Normal Bowel Sounds, Soft, Non-Tender, No Organomegaly, No Distention Back Exam: Normal Inspection Extremities: Normal Inspection, Non-Tender, No Pedal Edema Neurological: Alert, Oriented, CN II-XII Intact, Normal Cognition, No Motor/ Sensory Deficits Psychiatric: Normal Affect, Normal Mood Skin Exam: Warm, Dry, Intact, Normal Color, No Rash Course - Vital Signs Last Recorded V/S: Last Vital Signs Temp 97.6 F 07/01/18 10:06 Pulse 107 H 07/01/18 10:06 Resp 20 07/01/18 10:06 BP 141/127 H 07/01/18 10:06 Pulse Ox 99 07/01/18 10:06 - Orders/Labs/Meds Orders: Active Orders 24 hr Category Date Time Status DRUG SCREEN, URINE [URCHEM] Stat Lab 07/01/18 11:23 Ordered Labs: Laboratory Tests 07/01/18 Range/Units 11:23 Urine Opiates Screen Negative (NEGATIVE) Ur Buprenorphine Scrn Negative (NEGATIVE) Ur Oxycodone Screen Negative (NEGATIVE) Urine Methadone Screen Negative (NEGATIVE) Ur Propoxyphene Screen Negative (NEGATIVE) Ur Barbiturates Screen Negative (NEGATIVE) Ur Tricyclics Screen Presumptive positive H (NEGATIVE) Ur Phencyclidine Scrn Negative (NEGATIVE) Ur Amphetamine Screen Negative (NEGATIVE) U Methamphetamines Scrn Negative (NEGATIVE) U Benzodiazepines Scrn Negative (NEGATIVE) U Cocaine Metab Screen Negative (NEGATIVE) U Marijuana (THC) Screen Presumptive positive H (NEGATIVE) Meds: Medications Discontinued Medications Generic Name Dose Route Start Last Admin Trade Name Makayla PRN Reason Stop Dose Admin Hydromorphone HCl 2 mg 07/01/18 12:15 07/01/18 12:28 Dilaudid PO 07/01/18 12:16 2 mg ONETIME ONE Administration - Re-Assessments/Exams Free Text/Narrative Re-Assessment/Exam: Ordered urine drug tox. Once received with discuss further withdraw treatment. 07/01/18 12:15 Urine drug screen positive for tricyclics and marijuana. Ordered dilaudid 2mg PO normal home dose. No narcotics upon discharge. He will need to see PCP. This is a chronic complaint. Departure - Departure Time of Disposition: 12:16 Disposition: Home, Self-Care 01 Condition: Good Clinical Impression: Narcotic dependence - Discharge Information Instructions: Opioid Pain Medicine Information, Pain Medicine Instructions, [id number] Referrals: PCP,None [Primary Care Provider] - Forms: ED Department Discharge Additional Instructions: See your PCP for further management of narcotic medications. No narcotics will be provided on discharge. No driving today. - My Orders Last 24 Hours: My Active Orders 07/01/18 11:23 DRUG SCREEN, URINE [URCHEM] Stat - Assessment/Plan Last 24 Hours: My Active Orders 07/01/18 11:23 DRUG SCREEN, URINE [URCHEM] Stat
[2018-07-01] MEDS ORDERED: HYDROmorphone 2 MG Tab PO ONE (12:15)
== END 2018-07-01 12:31 | disposition home or self-care (01) ==
LOC: JD.ED 09:55
DX: F11.20 Opioid dependence, uncomplicated (principal); Z87.891 Personal history of nicotine dependence; Z79.899 Other long term (current) drug therapy; Z91.09 Other allergy status, other than to drugs and biological substances
CPT/HCPCS: 80306; 99284; A9270; 99283

== ENCOUNTER 2018-07-22 10:22 | Emergency (ER) | payer BC, OTHER ==
[2018-07-22] MEDS ORDERED: HYDROmorphone 1 MG/ML Syringe IVPUSH ONE (11:05)
[2018-07-22] MEDS ORDERED: Ondansetron 4 MG/2 ML SDV IVPUSH ONE (11:05)
[2018-07-22] MEDS ORDERED: Sodium Chloride 0.9% 1,000 ML IV ONE (11:05)
--- NOTE | 2018-07-22 11:39 | EDM.PDOC ---
ED HPI GENERAL MEDICAL PROBLEM - General Chief Complaint: Abdominal Pain Stated Complaint: ABDOMINAL PAIN Time Seen by Provider: 07/22/18 10:30 Source of Information: Reports: Patient History Limitations: Reports: No Limitations - History of Present Illness INITIAL COMMENTS - FREE TEXT/NARRATIVE: 32-year-old male history of chronic pancreatitis presenting with a chief complaint of abdominal pain. Pain started over the weekend, after eating subway. Has associated brown watery diarrhea that he describes as "nuclear." No hemamtemesis or hematochezia. He's had nausea and nonbloody non bilious emesis. He states the pain is centered in the epigastrium, severe, intermittent and radiating to the back. This feels identical to the usual pancreatitis flares he has. Has appt with his PCP tomorrow. Abdominal Pain Score (Numeric/FACES): 7 - Related Data Allergies Allergy/AdvReac Type Severity Reaction Status Date / Time cats Allergy Itching Uncoded 07/22/18 10:32 Home Meds: Home Meds Omeprazole [Prilosec] 20 mg PO BID 04/05/14 [History] Amylase/Lipase/Protease [Creon DR 24,000 Unit] 5 cap PO TIDMEALS 08/02/14 [ History] Ondansetron [Zofran ODT] 4 mg PO Q4H PRN #20 tab.dis 08/22/15 [Rx] Amitriptyline [Elavil] 25 mg PO DAILY 04/14/18 [History] DULoxetine [Cymbalta] 90 mg PO DAILY 04/14/18 [History] HYDROmorphone [Dilaudid] 2 mg PO Q6HR PRN #20 tab 04/14/18 [Rx] Prochlorperazine Maleate [Compazine] 10 mg PO DAILY 04/14/18 [History] Varenicline Tartrate [Chantix] 1 mg PO DAILY 04/14/18 [History] Past Medical History - Past Health History Medical/Surgical History: Denies Medical/Surgical History HEENT History: Reports: Impaired Vision Other HEENT History: wears glasses Cardiovascular History: Reports: None Respiratory History: Reports: None Gastrointestinal History: Reports: GERD, Pancreatitis Other Gastrointestinal History: Stents placed in pancrease, sphinctor of asad surgery . 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 Stone was removed last summer in May-Jun Hematologic History: Reports: None Immunologic History: Reports: None Oncologic (Cancer) History: Reports: None Dermatologic History: Reports: Other (See Below) Other Dermatologic History: allergic to cats - Infectious Disease History Infectious Disease History: Reports: Chicken Pox, Shingles - Past Surgical History Head Surgeries/Procedures: Reports: None GI Surgical History: Reports: Cholecystectomy, EGD Endocrine Surgical History: Reports: None Dermatological Surgical History: Reports: None Social & Family History - Family History Family Medical History: Noncontributory Cardiac: Reports: CAD, Stent Respiratory: Reports: None GI: Reports: None Neurological: Reports: CVA Oncologic: Reports: Breast, Other (See Below) Other Oncologic Family History: STOMACH - Tobacco Use Smoking Status *Q: Former Smoker Used Tobacco, but Quit: Yes Month/Year Tobacco Last Used: 06/2018 - Caffeine Use Caffeine Use: Reports: None - Recreational Drug Use Recreational Drug Use: Yes Drug Use in Last 12 Months: Yes Recreational Drug Type: Reports: Marijuana/Hashish Recreational Drug Use Frequency: Weekly Recreational Drug Last Use: last week - Living Situation & Occupation Living situation: Reports: Single, Alone 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[employer]) ED ROS GENERAL - Review of Systems Review Of Systems: See Below Constitutional: Reports: No Symptoms HEENT: Reports: No Symptoms Respiratory: Reports: No Symptoms Cardiovascular: Reports: No Symptoms Endocrine: Reports: No Symptoms GI/Abdominal: Reports: Abdominal Pain, Diarrhea, Nausea, Vomiting : Reports: No Symptoms Musculoskeletal: Reports: No Symptoms Skin: Reports: No Symptoms Neurological: Reports: No Symptoms ED EXAM, GI/ABD - Physical Exam Exam: See Below Exam Limited By: No Limitations General Appearance: Alert, No Apparent Distress Head: Atraumatic, Normocephalic Respiratory/Chest: No Respiratory Distress, Lungs Clear, Normal Breath Sounds Cardiovascular: Normal Peripheral Pulses, Regular Rate, Rhythm GI/Abdominal Exam: Normal Bowel Sounds, Soft, No Distention, Other (TTP epigastrium) Back Exam: Normal Inspection, Full Range of Motion Extremities: Normal Inspection, Normal Range of Motion Neurological: Alert, Oriented, CN II-XII Intact Psychiatric: Normal Affect, Normal Mood Skin Exam: Warm, Dry, Intact Course - Vital Signs Last Recorded V/S: Last Vital Signs Temp 35.7 C 07/22/18 10:29 Pulse 99 07/22/18 12:55 Resp 16 07/22/18 12:55 BP 130/90 07/22/18 12:55 Pulse Ox 98 07/22/18 12:55 - Orders/Labs/Meds Labs: Laboratory Tests 07/22/18 07/22/18 Range/Units 11:27 11:27 WBC 14.57 H (4.23-9.07) K/mm3 RBC 5.21 (4.63-6.08) M/mm3 Hgb 15.9 (13.7-17.5) gm/L Hct 47.9 (40.1-51.0) % MCV 91.9 (79.0-92.2) fl MCH 30.5 (25.7-32.2) pg MCHC 33.2 (32.2-35.5) g/dl RDW Std Deviation 45.0 H (35.1-43.9) fL Plt Count 235 (163-337) K/mm3 MPV 11.2 (9.4-12.3) fl Neut % (Auto) 72.5 H (34.0-67.9) % Lymph % (Auto) 18.4 L (21.8-53.1) % Mellette % (Auto) 6.9 (5.3-12.2) % Eos % (Auto) 1.7 (0.8-7.0) Baso % (Auto) 0.3 (0.1-1.2) % Neut # (Auto) 10.56 H (1.78-5.38) K/mm3 Lymph # (Auto) 2.68 (1.32-3.57) K/mm3 Mellette # (Auto) 1.00 H (0.30-0.82) K/mm3 Eos # (Auto) 0.25 (0.04-0.54) K/mm3 Baso # (Auto) 0.05 (0.01-0.08) K/mm3 Sodium 143 (136-145) mEq/L Potassium 3.8 (3.5-5.1) mEq/L Chloride 105 (98-107) mEq/L Carbon Dioxide 28 (21-32) mEq/L Anion Gap 13.8 (5-15) BUN 8 (7-18) mg/dL Creatinine 1.0 (0.7-1.3) mg/dL Est Cr Clr Drug Dosing 123.30 mL/min Estimated GFR (MDRD) > 60 (>60) mL/min BUN/Creatinine Ratio 8.0 L (14-18) Glucose 101 (74-106) mg/dL Calcium 8.9 (8.5-10.1) mg/dL Total Bilirubin 0.7 (0.2-1.0) mg/dL AST 25 (15-37) U/L ALT 19 (16-63) U/L Alkaline Phosphatase 79 (46-116) U/L Total Protein 7.4 (6.4-8.2) g/dl Albumin 4.2 (3.4-5.0) g/dl Globulin 3.2 gm/dL Albumin/Globulin Ratio 1.3 (1-2) Lipase 85 (73-393) U/L Meds: Medications Discontinued Medications Generic Name Dose Route Start Last Admin Trade Name Freq PRN Reason Stop Dose Admin Hydromorphone HCl 1 mg 07/22/18 11:05 07/22/18 11:21 Dilaudid IVPUSH 07/22/18 11:06 1 mg ONETIME ONE Administration Sodium Chloride 1,000 mls @ 999 mls/hr 07/22/18 11:05 07/22/18 11:20 Normal Saline IV 07/22/18 12:05 999 mls/hr ONETIME ONE Administration Ondansetron HCl 4 mg 07/22/18 11:05 07/22/18 11:20 Zofran IVPUSH 07/22/18 11:06 4 mg ONETIME ONE Administration - Re-Assessments/Exams Free Text/Narrative Re-Assessment/Exam: 07/22/18 12:13 32 y M presenting with abd pain, nausea, vomiting and diarrhea. VS normal. Exam notable for epigastric TTP. CBC with mild leukocytosis likely reactive from retching. CMP demonstrates normal electrolytes and kidney function. Lipase not elevated. Treated with dilaudid 1mg IV, zofran 4mg IV zofran. Revaluate the patient he felt his pain was improved and he was able tolerate by mouth intake. Patient most likely is having a minor exacerbation of his chronic pancreatitis at this time. He is given return precautions and all his questions were answered. He was discharged home in good clinical condition. Departure - Departure Time of Disposition: 12:15 Disposition: Home, Self-Care 01 Condition: Good Clinical Impression: Gastroenteritis Chronic pancreatitis Qualifiers: Pancreatitis type: unspecified pancreatitis type Qualified Code(s): K86.1 - Other chronic pancreatitis - Discharge Information *PRESCRIPTION DRUG MONITORING PROGRAM REVIEWED*: No *COPY OF PRESCRIPTION DRUG MONITORING REPORT IN PATIENT MIKIE: No Instructions: Chronic Pancreatitis, Viral Gastroenteritis, Adult, [id number] Referrals: Domenic Reilly PA-C [Primary Care Provider] - Forms: ED Department Discharge Additional Instructions: You were seen in the ED today for abdominal pain, nausea, vomiting and diarrhea. Your labs are normal, it is safe to go home. Follow up with your PCP tomorrow.
[2018-07-22 13:09] VITALS: BP 130/90
== END 2018-07-22 12:55 | disposition home or self-care (01) ==
LOC: JD.ED 10:22
DX: K86.1 Other chronic pancreatitis (principal); K52.9 Noninfective gastroenteritis and colitis, unspecified; Z87.891 Personal history of nicotine dependence; Z91.09 Other allergy status, other than to drugs and biological substances
CPT/HCPCS: 36415; 80053; 83690; 85025; 96361; 96374; 96375; 99284; J1170; J2405; J7040

== ENCOUNTER 2018-11-30 08:00 | Emergency (ER) | payer SELFPAY ==
[2018-11-30 08:17] VITALS: BP 166/128
[2018-11-30] MEDS ORDERED: Ondansetron 4 MG/2 ML SDV IVPUSH ONE (08:27)
[2018-11-30] MEDS ORDERED: Sodium Chloride 0.9% 1,000 ML IV SCH (08:30)
[2018-11-30] MEDS ORDERED: HYDROmorphone 1 MG/ML Syringe IVPUSH ONE ×2 (08:37→09:03)
--- NOTE | 2018-11-30 08:43 | EDM.PDOC ---
ED HPI GENERAL MEDICAL PROBLEM - General Chief Complaint: Abdominal Pain Stated Complaint: PANCREAS PAIN Time Seen by Provider: 11/30/18 08:15 Source of Information: Reports: Patient, RN Notes Reviewed History Limitations: Reports: No Limitations - History of Present Illness INITIAL COMMENTS - FREE TEXT/NARRATIVE: The patient states that he developed right upper quadrant abdominal pain last night. It is sharp and burning in character. It does not radiate. He states that he has had nausea and emesis, but although no constipation, diarrhea, or urinary symptoms. No recent fever. The pain is made better if he is supine and with hot showers, worse if he is upright. 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 The patient is under the care of the Boss Dyer Dr. Dayday Jaramillo at the [facility]. The patient states that he has had EGDs and ERCPs, including biliary stents and common bile duct stone removal in 2016. He has had a cholecystectomy. The patient's PCP is Brittani Young, who he continues to see at her new location. She prescribes him oral Dilaudid. The patient states that because of his emesis, he is not able to keep the Dilaudid down. Medical records indicate that the patient has a history of drug-seeking behavior , and an addiction to opioids. The patient drove himself to the ED today. Right Upper Abdominal Pain Score (Numeric/FACES): 10 - Related Data Allergies Allergy/AdvReac Type Severity Reaction Status Date / Time cats Allergy Itching Uncoded 11/30/18 08:17 Home Meds: Home Meds Omeprazole [Prilosec] 20 mg PO BID 04/05/14 [History] Amylase/Lipase/Protease [Angel [place] 24,000 Unit] 5 cap PO TIDMEALS 08/02/14 [ History] Ondansetron [Zofran ODT] 4 mg PO Q4H PRN #20 tab.dis 08/22/15 [Rx] Amitriptyline [Elavil] 25 mg PO DAILY 04/14/18 [History] DULoxetine [Cymbalta] 90 mg PO DAILY 04/14/18 [History] Varenicline Tartrate [Chantix] 1 mg PO DAILY 04/14/18 [History] HYDROmorphone [Dilaudid] 2 mg PO BID 10/15/18 [History] Past Medical History HEENT History: Reports: Impaired Vision Other HEENT History: wears glasses Gastrointestinal History: Reports: GERD, Pancreatitis (2 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) Musculoskeletal History: Reports: Back Pain, Chronic Psychiatric History: Reports: Addiction (opioids), Anxiety, Depression - Infectious Disease History Infectious Disease History: Reports: Chicken Pox, Shingles - Past Surgical History GI Surgical History: Reports: Cholecystectomy, EGD, ERCP (biliary stents, sphincter of Oddi dilatation x 2, CBD stone removal) Endocrine Surgical History: Reports: None Dermatological Surgical History: Reports: None Social & Family History - Family History Family Medical History: Noncontributory Cardiac: Reports: CAD, Stent Respiratory: Reports: None GI: Reports: None Neurological: Reports: CVA Oncologic: Reports: Breast, Other (See Below) Other Oncologic Family History: STOMACH - Tobacco Use Smoking Status *Q: Current Every Day Smoker Years of Tobacco use: 15 Packs/Tins Daily: 0.5 - Caffeine Use Caffeine Use: Reports: None - Recreational Drug Use Recreational Drug Use: Yes Drug Use in Last 12 Months: Yes Recreational Drug Type: Reports: Marijuana/Hashish Recreational Drug Use Frequency: Rarely - Living Situation & Occupation Living situation: Reports: Single, Alone 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[employer]) ED ROS GENERAL - Review of Systems Review Of Systems: ROS reveals no pertinent complaints other than HPI. ED EXAM, GI/ABD - Physical Exam Exam: See Below Exam Limited By: No Limitations General Appearance: Alert, WD/WN, Mild Distress (Appears uncomfortable) Eyes: Bilateral: Normal Appearance, EOMI Ears: Normal External Exam, Hearing Grossly Normal Nose: Normal Inspection Throat/Mouth: Normal Inspection, Normal Lips, Normal Voice, No Airway Compromise Head: Atraumatic, Normocephalic Neck: Normal Inspection, Full Range of Motion Respiratory/Chest: No Respiratory Distress, Lungs Clear, Normal Breath Sounds, No Accessory Muscle Use Cardiovascular: Normal Peripheral Pulses, No Edema, No Gallop, No JVD, No Murmur , No Rub, Tachycardia (regular) GI/Abdominal Exam: Soft, No Organomegaly, No Distention, No Abnormal Bruit, No Mass, Tender (Primarily in the right upper quadrant, but also in the epigastrium. Essentially nontender elsewhere.), Abnormal Bowel Sounds ( diminished) (Male) Exam: Deferred Rectal (Males) Exam: Deferred Back Exam: Normal Inspection, Full Range of Motion. No: CVA Tenderness (L), CVA Tenderness (R) Extremities: Normal Inspection, Normal Range of Motion, No Pedal Edema, Normal Capillary Refill Neurological: Alert, Oriented, Normal Cognition, No Motor/Sensory Deficits Psychiatric: Normal Affect Skin Exam: Warm, Dry, Intact, Normal Color, No Rash Course - Vital Signs Last Recorded V/S: Last Vital Signs Temp 36.6 C 11/30/18 08:14 Pulse 109 H 11/30/18 08:14 Resp 16 11/30/18 08:14 BP 166/128 H 11/30/18 08:14 Pulse Ox 97 11/30/18 08:14 - Orders/Labs/Meds Labs: Laboratory Tests 11/30/18 11/30/18 Range/Units 08:38 08:38 WBC 10.55 H (4.23-9.07) K/mm3 RBC 5.33 (4.63-6.08) M/mm3 Hgb 15.7 (13.7-17.5) gm/L Hct 47.1 (40.1-51.0) % MCV 88.4 (79.0-92.2) fl MCH 29.5 (25.7-32.2) pg MCHC 33.3 (32.2-35.5) g/dl RDW Std Deviation 43.0 (35.1-43.9) fL Plt Count 255 (163-337) K/mm3 MPV 10.9 (9.4-12.3) fl Neutrophils % (Manual) 61 H (40-60) % Band Neutrophils % 0 (0-10) % Lymphocytes % (Manual) 33 (20-40) % Atypical Lymphs % 0 % Monocytes % (Manual) 4 (2-10) % Eosinophils % (Manual) 1 (0.8-7.0) % Basophils % (Manual) 1 (0.2-1.2) Platelet Estimate Adequate RBC Morph Comment Normal Sodium 141 (136-145) mEq/L Potassium 3.8 (3.5-5.1) mEq/L Chloride 105 (98-107) mEq/L Carbon Dioxide 23 (21-32) mEq/L Anion Gap 16.8 H (5-15) BUN 12 (7-18) mg/dL Creatinine 1.0 (0.7-1.3) mg/dL Est Cr Clr Drug Dosing 122.16 mL/min Estimated GFR (MDRD) > 60 (>60) mL/min BUN/Creatinine Ratio 12.0 L (14-18) Glucose 136 H (74-106) mg/dL Calcium 9.8 (8.5-10.1) mg/dL Total Bilirubin 0.6 (0.2-1.0) mg/dL AST 17 (15-37) U/L ALT 36 (16-63) U/L Alkaline Phosphatase 88 (46-116) U/L Total Protein 8.3 H (6.4-8.2) g/dl Albumin 4.5 (3.4-5.0) g/dl Globulin 3.8 gm/dL Albumin/Globulin Ratio 1.2 (1-2) Lipase 167 (73-393) U/L Meds: Medications Discontinued Medications Generic Name Dose Route Start Last Admin Trade Name Freq PRN Reason Stop Dose Admin Diatrizoate Meglum/Diatrizoate Sod 120 ml 11/30/18 09:03 11/30/18 09:53 Gastrografin 37% PO 11/30/18 09:04 90 ml ONETIME ONE Administration Hydromorphone HCl 1 mg 11/30/18 08:37 11/30/18 08:41 Dilaudid IVPUSH 11/30/18 08:38 1 mg ONETIME ONE Administration Hydromorphone HCl 1 mg 11/30/18 09:03 11/30/18 09:07 Dilaudid IVPUSH 11/30/18 09:04 1 mg ONETIME ONE Administration Sodium Chloride 1,000 mls @ 150 mls/hr 11/30/18 08:30 11/30/18 08:38 Normal Saline IV 150 mls/hr ASDIRECTED MACHELLE Administration Iopamidol 100 ml 11/30/18 09:03 11/30/18 09:53 Isovue-300 (61%) IVPUSH 11/30/18 09:04 100 ml ONETIME ONE Administration Ondansetron HCl 4 mg 11/30/18 08:27 11/30/18 08:38 Zofran IVPUSH 11/30/18 08:28 4 mg ONETIME ONE Administration Sodium Chloride 10 ml 11/30/18 09:03 11/30/18 09:53 Saline Flush FLUSH 10 ml ONETIME PRN Administration IV FLUSH - Re-Assessments/Exams Free Text/Narrative Re-Assessment/Exam: 11/30/18 08:38 The patient has a history of recurrent upper abdominal pain that he says is due to recurrent pancreatitis related to 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 At present, he is diaphoretic and appears to be quite uncomfortable. The patient has a documented history of drug-seeking behavior and an episode of telling the staff that he would get a ride, receiving Dilaudid, then being seen driving off. I confronted the patient about that, and he acknowledged that he did it, and that he subsequently apologized. He stated that he can either take a cab home or get a ride from someone at work today. He promised that he will not drive off again. I informed the patient that I will go ahead and order pain medication now, but that if he drives off-again, he will not able to receive an opioid in the future without a ride being physically present. 11/30/18 10:35 CT of the abdomen and pelvis with oral and IV contrast is read by Dr. Piper as: 1. Nothing acute seen on CT study of the abdomen and pelvis. 2. Other incidental findings as noted above. 11/30/18 10:38 Test results discussed with the patient. Today's workup is entirely unremarkable. The patient's WBC count is slightly elevated at 10.55, but with 0 % bandemia. His CMP is unremarkable - he is not acidotic. His lipase is normal at 167. The patient states that he is feeling much better, following 2 mg IV Dilaudid, 4 mg IV Zofran, and IV fluid, and he looks much more comfortable, as well. I do not see an indication to admit him to the hospital, and the patient is agreeable with going home and following up with his Boss Dyer at the [facility]. The patient states that he already has Zofran at home. Departure - Departure Time of Disposition: 10:39 Disposition: Home, Self-Care 01 Condition: Fair Clinical Impression: Right upper quadrant abdominal pain of unknown etiology - Discharge Information *PRESCRIPTION DRUG MONITORING PROGRAM REVIEWED*: Not Applicable *COPY OF PRESCRIPTION DRUG MONITORING REPORT IN PATIENT MIKIE: Not Applicable Instructions: Abdominal Pain, Adult, [id number] Referrals: Sandra Young NP [Primary Care Provider] - Dayday Jaramillo MD [Physician] - Forms: ED Department Discharge Additional Instructions: You were seen in the emergency room for upper right abdominal pain, along with nausea and vomiting, since last night. Workup in the ER included blood work and a CT scan of your abdomen and pelvis with oral and IV contrast. Your entire workup returned unremarkable. Your lipase level is normal at 167 - you do not have pancreatitis, and your CT scan found no abnormalities. The cause of your abdominal pain is not known. If it persists, we recommend that you follow-up with your Boss Dyer, Dr. Dayday Jaramillo, at the [facility]. If any other problems, please do not hesitate to return to the ER.
[2018-11-30] MEDS ORDERED: Diatrizoate Meglumine/Diatrizoate Sodium 37% 120 ML Bottle PO ONE (09:03)
[2018-11-30] MEDS ORDERED: Sodium Chloride 0.9% 10 ML Syringe FLUSH PRN (09:03)
[2018-11-30] MEDS ORDERED: Iopamidol 612 MG/ML 100 ML Bottle IVPUSH ONE (09:03)
--- NOTE | 2018-11-30 10:17 | CT ---
CT abdomen and pelvis Technique: Multiple axial sections were obtained from above the dome of the diaphragm inferiorly through the pubic symphysis. Intravenous and oral contrast was utilized. Oral contrast remains within proximal small bowel. Delayed images were obtained through the bladder. Comparison: Prior CT abdomen and pelvis exam of 05/10/15. Findings: Appendix is normal in size. Visualized lung bases are clear. Liver contains no focal abnormality. Surgical clips are seen from prior cholecystectomy. Spleen appears within normal limits. Adrenal glands show no nodule. Pancreas is within normal limits. Aorta shows no aneurysm. Kidneys show symmetric contrast enhancement with no hydronephrosis or mass. No retroperitoneal adenopathy is seen. No mesenteric abnormalities are seen. No pelvic mass or adenopathy is seen. No free fluid or inflammatory change is seen within the abdomen or within the pelvis. Delayed images show contrast within both distal ureters and within the bladder. Bone window settings were reviewed which show moderate disc space narrowing at L5-S1 with vacuum disc phenomena. Impression: 1. Nothing acute seen on CT study of the abdomen and pelvis. 2. Other incidental findings as noted above. Diagnostic code #2
== END 2018-11-30 10:55 | disposition home or self-care (01) ==
LOC: JD.ED 08:00
DX: R10.11 Right upper quadrant pain (principal); R11.2 Nausea with vomiting, unspecified; K21.9 Gastro-esophageal reflux disease without esophagitis; F32.9 Major depressive disorder, single episode, unspecified; F41.9 Anxiety disorder, unspecified; F17.200 Nicotine dependence, unspecified, uncomplicated; Z91.048 Other nonmedicinal substance allergy status; Z98.890 Other specified postprocedural states; Z79.899 Other long term (current) drug therapy; Z90.49 Acquired absence of other specified parts of digestive tract
CPT/HCPCS: 36415; 74177; 80053; 83690; 85007; 85027; 96361; 96374; 96375; 99284; J1170; J2405; J7040; Q9963; Q9967

== ENCOUNTER 2018-12-07 07:05 | Emergency (ER) | payer SELFPAY ==
[2018-12-07 07:16] VITALS: BP 165/104
[2018-12-07] MEDS ORDERED: Ondansetron 4 MG Tab.DIS PO STA (08:47)
--- NOTE | 2018-12-07 09:18 | EDM.PDOC ---
ED HPI GENERAL MEDICAL PROBLEM - General Chief Complaint: Lower Extremity Injury/Pain Stated Complaint: HIP PAIN Time Seen by Provider: 12/07/18 07:18 Source of Information: Reports: Patient, RN Notes Reviewed - History of Present Illness INITIAL COMMENTS - FREE TEXT/NARRATIVE: The patient is well-known to me, having attended this ED on numerous occasions, most recently 11/30/2018. At that time, he complained of recurrent right upper quadrant abdominal pain. 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 He is under the care of the Microfilm Operator Dr. Dayday Jaramillo at the [facility]. The patient also has a documented history of drug-seeking behavior, and a dependence to opioids. He has been seen driving away from the ED after receiving opioids in the past. He is prescribed oral Dilaudid per Brittani Young, 2 mg BID, in 2-week intervals. According to the [place] PMPi, his last prescription for Dilaudid was 30 tablets, a 15-day supply, filled on 12/02/2018. The patient now presents to the ED stating that he developed left buttock pain, radiating down his left lower extremity, about 10 days ago. He states that it was present when he was seen here on 11/30/2018, but that it was relatively minimal, and he did not mention it. He states that it has progressively gotten worse, however, to the point that he was unable to sleep last night. He states that his left toes are numb, and that he cannot walk, due to a combination of pain and weakness of the left lower extremity. He denies bowel or bladder incontinence. He states that he has a history of spinal stenosis, although I do not find any evidence for that in the medical record. He denies any injury to the area. He states that he saw his PCP, Domenic Reilly, this past , 12/03/2018, and that x-rays of his lower back were performed, indicating disc space narrowing. A MRI is planned, but not yet scheduled. The patient states that he was prescribed a muscle relaxant, whose name he does not recall. The patient is found lying face down on the gurney, perpendicular to its axis, retching and moaning loudly. He is angry about the wait to be seen, stating that I should hire more people. Left Lower Back Pain Score (Numeric/FACES): 9 - Related Data Allergies Allergy/AdvReac Type Severity Reaction Status Date / Time cats Allergy Itching Uncoded 12/07/18 13:25 Home Meds: Home Meds Omeprazole [Prilosec] 20 mg PO BID 04/05/14 [History] Amylase/Lipase/Protease [Angel PITTMAN 24,000 Unit] 5 cap PO TIDMEALS 08/02/14 [ History] Ondansetron [Zofran ODT] 4 mg PO Q4H PRN #20 tab.dis 08/22/15 [Rx] Amitriptyline [Elavil] 25 mg PO DAILY 04/14/18 [History] DULoxetine [Cymbalta] 90 mg PO DAILY 04/14/18 [History] Varenicline Tartrate [Chantix] 1 mg PO DAILY 04/14/18 [History] HYDROmorphone [Dilaudid] 2 mg PO BID 10/15/18 [History] Past Medical History HEENT History: Reports: Impaired Vision Other HEENT History: wears glasses Gastrointestinal History: Reports: GERD, Other (See Below) (Pancreas divisum and sphincter of Oddi dysfunction) Musculoskeletal History: Reports: Back Pain, Chronic Psychiatric History: Reports: Addiction (opioids), Anxiety, Depression - Infectious Disease History Infectious Disease History: Reports: Chicken Pox, Shingles - Past Surgical History GI Surgical History: Reports: Cholecystectomy, EGD, ERCP (biliary stents, sphincter of Oddi dilatation x 2, CBD stone extraction summer 2015) Social & Family History - Family History Family Medical History: Noncontributory Cardiac: Reports: CAD, Stent Respiratory: Reports: None GI: Reports: None Neurological: Reports: CVA Oncologic: Reports: Breast, Other (See Below) Other Oncologic Family History: STOMACH - Tobacco Use Smoking Status *Q: Current Every Day Smoker Years of Tobacco use: 15 Packs/Tins Daily: 0.5 - Caffeine Use Caffeine Use: Reports: Coffee, Soda - Recreational Drug Use Recreational Drug Use: Yes Drug Use in Last 12 Months: Yes Recreational Drug Type: Reports: Marijuana/Hashish (smokes on occasion) - Living Situation & Occupation Living situation: Reports: Single, Alone 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[employer]) ED ROS GENERAL - Review of Systems Review Of Systems: ROS reveals no pertinent complaints other than HPI. ED EXAM,LOWER BACK PAIN/INJURY - Physical Exam Exam: See Below Exam Limited By: No Limitations General Appearance: Alert, WD/WN, Moderate Distress (retching, moaning) Eye Exam: Bilateral Eye: EOMI, Normal Inspection Ears: Normal External Exam, Hearing Grossly Normal Nose: Normal Inspection Throat/Mouth: Normal Inspection, Normal Lips, Normal Voice, No Airway Compromise Head: Atraumatic, Normocephalic Neck: Normal Inspection, Full Range of Motion Respiratory/Chest: No Respiratory Distress, Lungs Clear, Normal Breath Sounds, No Accessory Muscle Use Cardiovascular: Normal Peripheral Pulses, Regular Rate, Rhythm, No Gallop, No JVD, No Murmur, No Rub GI/Abdominal: Normal Bowel Sounds, Soft, No Organomegaly, No Distention, No Abnormal Bruit, No Mass, Tender (mild, right upper quadrant only. Essentially nontender elsewhere.), Other (Obese) (Male) Exam: Deferred Rectal (Males) Exam: Normal Exam, Normal Rectal Tone Back Exam: Full Range of Motion, Vertebral Tenderness (To palpation over the lumbar spinous processes. No significant paraspinous muscle tenderness.). No: CVA Tenderness (L), CVA Tenderness (R) Extremities: Normal Inspection, Normal Range of Motion, Normal Capillary Refill (good left femoral, popliteal, posterior tibialis, and dorsalis pedis pulses), Other (Tenderness to palpation of the left buttock) Neurological: Alert, Normal Dorsiflexion, Normal Plantar Flexion, Oriented x 3, Difficulty Walking, Other (The patient is indicating weakness to flexion and extension of the left hip and knee) Psychiatric: Other (Angry, hostile) Skin Exam: Warm, Dry, Intact, Normal Color, No Rash Course - Vital Signs Last Recorded V/S: Last Vital Signs Temp 36.6 C 12/07/18 07:12 Pulse 110 H 12/07/18 07:12 Resp 18 12/07/18 07:12 BP 165/104 H 12/07/18 07:12 Pulse Ox 100 12/07/18 07:12 - Orders/Labs/Meds Labs: Laboratory Tests 12/07/18 12/07/18 Range/Units 09:20 09:20 WBC 13.86 H (4.23-9.07) K/mm3 RBC 5.43 (4.63-6.08) M/mm3 Hgb 16.1 (13.7-17.5) gm/L Hct 47.3 (40.1-51.0) % MCV 87.1 (79.0-92.2) fl MCH 29.7 (25.7-32.2) pg MCHC 34.0 (32.2-35.5) g/dl RDW Std Deviation 42.3 (35.1-43.9) fL Plt Count 297 (163-337) K/mm3 MPV 11.3 (9.4-12.3) fl Neutrophils % (Manual) 77 H (40-60) % Band Neutrophils % 0 (0-10) % Lymphocytes % (Manual) 20 (20-40) % Atypical Lymphs % 0 % Monocytes % (Manual) 0 L (2-10) % Eosinophils % (Manual) 2 (0.8-7.0) % Basophils % (Manual) 1 (0.2-1.2) Platelet Estimate Adequate RBC Morph Comment Normal Sodium 138 (136-145) mEq/L Potassium 4.0 (3.5-5.1) mEq/L Chloride 101 (98-107) mEq/L Carbon Dioxide 22 (21-32) mEq/L Anion Gap 19.0 H (5-15) BUN 14 (7-18) mg/dL Creatinine 1.2 (0.7-1.3) mg/dL Est Cr Clr Drug Dosing 101.80 mL/min Estimated GFR (MDRD) > 60 (>60) mL/min BUN/Creatinine Ratio 11.7 L (14-18) Glucose 127 H (74-106) mg/dL Calcium 10.1 (8.5-10.1) mg/dL Total Bilirubin 0.7 (0.2-1.0) mg/dL AST 22 (15-37) U/L ALT 30 (16-63) U/L Alkaline Phosphatase 92 (46-116) U/L Total Protein 8.6 H (6.4-8.2) g/dl Albumin 4.7 (3.4-5.0) g/dl Globulin 3.9 gm/dL Albumin/Globulin Ratio 1.2 (1-2) Meds: Medications Discontinued Medications Generic Name Dose Route Start Last Admin Trade Name Freq PRN Reason Stop Dose Admin Hydromorphone HCl 1 mg 12/07/18 09:30 12/07/18 09:37 Dilaudid IVPUSH 12/07/18 09:31 1 mg ONETIME ONE Administration Hydromorphone HCl 1 mg 12/07/18 10:25 12/07/18 10:34 Dilaudid IVPUSH 12/07/18 10:26 1 mg ONETIME STA Administration Lorazepam 1 mg 12/07/18 11:00 12/07/18 11:13 Ativan IVPUSH 12/07/18 11:01 1 mg ONETIME STA Administration Metoclopramide HCl 10 mg 12/07/18 11:44 12/07/18 11:48 Reglan IVPUSH 12/07/18 11:45 10 mg ONETIME STA Administration Ondansetron HCl 4 mg 12/07/18 08:47 12/07/18 08:50 Zofran Odt PO 12/07/18 08:48 4 mg ONETIME STA Administration - Re-Assessments/Exams Free Text/Narrative Re-Assessment/Exam: 12/07/18 09:11 The patient is complaining of severe pain to his lower back and left buttock, radiating down his left lower extremity. He states that his left toes are numb, and that his left lower extremity is weak. He states that he cannot bear weight on it, and on examination, whether due to pain or actual weakness, the patient has difficulty in both extending and flexing his left hip and knee, although dorsiflexion and plantar flexion of the left ankle appears to be normal. He is tender to palpation over the lumbar spine and the left buttock. Normal tone on rectal exam. If in fact the patient has left lower extremity weakness, there is a remote possibility that the patient could have cord compression, therefore an emergency MRI is indicated. 12/07/18 09:16 I discussed the case with the [employer] clerk. Unfortunately, the earliest that the patient could go to MRI would be 11:00. I discussed this with the patient, with my intention to transfer him to [place], if that is possible. He is agreeable to being transferred. 12/07/18 09:25 Case discussed with [facility] at 09:18. They need to check that their MRI is available before they can accept transfer. They will check, then call me back. 12/07/18 09:[address] Kwok, ED Physician at [facility], at 09:30. They don't think they could get him into the MRI until the afternoon. We could get the MRI done faster here, then transfer him if it is positive for cord compression. 12/07/18 10:48 The premises technician is here to take the patient, however, the patient is moving all over the gurney. She stated that she cannot perform a MRI with the patient constantly moving. The patient is demanding large doses of opioids before he will go. He has received 2 mg of Dilaudid so far, which he says has not even touched him. I explained that in order to see if there is something really wrong , we need the MRI, and that we have only this narrow window - we can't put it off. The patient stated that he didn't care, that he wasn't going unless he got a lot more Dilaudid. At this point, we will have to cancel the MRI. We can't have other patients not get their scheduled MRIs because of this patient's refusal to go. Based on the patient's behavior, I strongly suspect that he is suffering from opioid withdrawal and drug seeking. He admitted that he is nearly out of his oral Dilaudid, prescribed by Brittani Young, but I suspect that he is completely out of it. He is being very manipulative. The ED is not in a position to treat the patient's chronic pain. I can help treat his nausea so that he can take his own medication, but I'm not going to give him any more opioids. 12/07/18 12:37 The patient has continued to be loud. I talked to the patient with Teresa SUTHERLAND present. I explained that I am willing to treat his nausea with medicine so that he can take his own pain medication, but that I cannot continue to give him opioids or Ativan. The patient became argumentative and hostile. He said he wanted the MRI after all, and I explained that that is no longer possible, and that that had been explained to him at the time. He said he wanted to transfer to [place], but I explained that a transfer was already declined. The patient then said that he would just drive himself there, which he has done in the past after receiving opioids, and then, without allowing us to call a cab or other ride for him or waiting for discharge instructions, the patient got up and walked out - it was noted that the patient had no difficulty walking. He does not have cord compression. 12/07/18 12:56 Notified by Teresa SUTHERLAND that when the patient left, he left with his IV still in place. She called the patient on his cell phone and instructed him to return to the ED to have it removed. He told her that he was going to return to the ED, to be re-seen. Departure - Departure Time of Disposition: 12:50 Disposition: Eloped 07 Condition: Good Clinical Impression: Drug-seeking behavior - Discharge Information *PRESCRIPTION DRUG MONITORING PROGRAM REVIEWED*: Yes *COPY OF PRESCRIPTION DRUG MONITORING REPORT IN PATIENT [place]: Yes Referrals: Domenic Reilly PA-C [Primary Care Provider] -
[2018-12-07] MEDS ORDERED: HYDROmorphone 1 MG/ML Syringe IVPUSH ONE (09:30)
[2018-12-07] MEDS ORDERED: HYDROmorphone 1 MG/ML Syringe IVPUSH STA (10:25)
[2018-12-07] MEDS ORDERED: LORazepam 2 MG/ML SDV IVPUSH STA (11:00)
[2018-12-07] MEDS ORDERED: Metoclopramide 10 MG/2 ML SDV IVPUSH STA (11:44)
== END 2018-12-07 12:35 | disposition left against medical advice (07) ==
LOC: JD.ED 07:05
DX: R10.11 Right upper quadrant pain (principal); M79.18 Myalgia, other site; Z76.5 Malingerer [conscious simulation]; K21.9 Gastro-esophageal reflux disease without esophagitis; F41.9 Anxiety disorder, unspecified; F32.9 Major depressive disorder, single episode, unspecified; F17.210 Nicotine dependence, cigarettes, uncomplicated; Z79.899 Other long term (current) drug therapy; Z91.09 Other allergy status, other than to drugs and biological substances
CPT/HCPCS: 36415; 80053; 85007; 85027; 96374; 96375; 96376; 99284; A9270; J1170; J2060; J2765

== ENCOUNTER 2018-12-07 13:21 | Emergency (ER) | payer SELFPAY ==
[2018-12-07] MEDS ORDERED: Ketorolac 60 MG/2 ML SDV IM ONE (14:04)
[2018-12-07] MEDS ORDERED: cloNIDine 0.1 MG Tab PO STA (14:14)
[2018-12-07] MEDS ORDERED: Dicyclomine 10 MG Cap PO STA (14:15)
[2018-12-07] MEDS ORDERED: diazePAM 5 MG/ML-2ml Syringe IV STA (14:15)
[2018-12-07] MEDS ORDERED: Promethazine 25 MG in Sodium Chloride 0.9% 50 ML IV ONE (14:16)
--- NOTE | 2018-12-07 14:21 | EDM.PDOC ---
ED HPI GENERAL MEDICAL PROBLEM - General Chief Complaint: Back Pain or Injury Stated Complaint: HIP PAIN Time Seen by Provider: 12/07/18 13:31 Source of Information: Reports: Patient History Limitations: Reports: No Limitations - History of Present Illness INITIAL COMMENTS - FREE TEXT/NARRATIVE: The patient was seen in this ED earlier this morning, with a complaint of a ten- day history of left buttock pain radiating down his left lower extremity, progressively getting worse. He reported that he had left lower extremity weakness, although no bladder or fecal incontinence, and he had normal tone on a rectal examination. The patient was given Dilaudid, Ativan, and Zofran, but continued to retch and dry heaves. He was offered a MRI, but when the time came to go to MRI, it had to be canceled, because the patient was moving around too much, and the patient demanded high doses of Dilaudid before he would go, demanded that was refused. Ultimately, the patient got up and left the ED, without waiting for discharge instructions, and without having his IV removed. He was contacted by one of our nurses and directed to return to the ED to have the IV removed, otherwise, the police would be called. Because the patient had been given IV Dilaudid and Ativan, then was seen driving away, the police were in fact called, and they arrived prior to the patient. When the patient returned, they gave him the choice of being reevaluated, or going [facility]. The patient chose reevaluation. The patient has a history of drug-seeking behavior and dependence on opioids. He has driven away from this ED after being given opioids in the past. Now the patient has returned, he acknowledged that the real reason that he was here earlier is because he is out of his oral Dilaudid. 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 He states that he had significant pain associated with this, possibly due to episodes of pancreatitis. While the patient has never met diagnostic criteria for pancreatitis at this facility, he insists that he has been diagnosed with that elsewhere, and he is likely telling the truth. He states that he got addicted to opioids after being treated for legitimate abdominal pain. His Gas Manager is Dr. Dayday Jaramillo at the [facility], however , he is prescribed oral Dilaudid, 2 mg po BID per his PCP, Brittani Young. She prescribes it in two-week intervals. According to the [place] PMPi, his most recent prescription was filled on 12/02/2017, 30 tablets, intended to last him 15 days. The patient tells me, however, that due to generalized pain, he has been taking one tablet every 3 to 4 hours, and that he ran out around 04:00 this morning. He acknowledged that the entire story of left lower extremity weakness was just a ruse. - Related Data Allergies Allergy/AdvReac Type Severity Reaction Status Date / Time cats Allergy Itching Uncoded 12/07/18 13:25 Home Meds: Home Meds Omeprazole [Prilosec] 20 mg PO BID 04/05/14 [History] Amylase/Lipase/Protease [Crejosh DR 24,000 Unit] 5 cap PO TIDMEALS 08/02/14 [ History] Ondansetron [Zofran ODT] 4 mg PO Q4H PRN #20 tab.dis 08/22/15 [Rx] Amitriptyline [Elavil] 25 mg PO DAILY 04/14/18 [History] DULoxetine [Cymbalta] 90 mg PO DAILY 04/14/18 [History] Varenicline Tartrate [Chantix] 1 mg PO DAILY 04/14/18 [History] HYDROmorphone [Dilaudid] 2 mg PO BID 10/15/18 [History] Past Medical History HEENT History: Reports: Impaired Vision Other HEENT History: wears glasses Gastrointestinal History: Reports: GERD, Other (See Below) (Pancreas divisum and sphincter of Oddi dysfunction) Musculoskeletal History: Reports: Back Pain, Chronic Psychiatric History: Reports: Addiction (Opioids), Anxiety, Depression Endocrine/Metabolic History: Reports: Obesity/BMI 30+ - Infectious Disease History Infectious Disease History: Reports: Chicken Pox, Shingles - Past Surgical History GI Surgical History: Reports: Cholecystectomy, EGD, ERCP (Biliary stents, sphincter of Oddi dilatation x 2, CBD stone extraction October 2016) Social & Family History - Family History Family Medical History: Noncontributory Cardiac: Reports: CAD, Stent Respiratory: Reports: None GI: Reports: None Neurological: Reports: CVA Oncologic: Reports: Breast, Other (See Below) Other Oncologic Family History: STOMACH - Tobacco Use Smoking Status *Q: Current Every Day Smoker Years of Tobacco use: 15 Packs/Tins Daily: 0.5 - Caffeine Use Caffeine Use: Reports: None - Recreational Drug Use Recreational Drug Use: Yes Drug Use in Last 12 Months: Yes Recreational Drug Type: Reports: Marijuana/Hashish (smokes on occasion), Other ( see below) (Opioids, including prescribed oral Dilaudid, multiple times per day) - Living Situation & Occupation Living situation: Reports: Single, Alone 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[employer]) ED ROS GENERAL - Review of Systems Review Of Systems: ROS reveals no pertinent complaints other than HPI. ED EXAM, GENERAL - Physical Exam Exam: See Below Exam Limited By: No Limitations General Appearance: Alert, WD/WN, Moderate Distress (Diaphoretic, mostly position, retching) Eye Exam: Bilateral Eye: EOMI, Normal Inspection Ears: Normal External Exam, Hearing Grossly Normal Nose: Normal Inspection Throat/Mouth: Normal Inspection, Normal Lips, Normal Voice, No Airway Compromise Head: Atraumatic, Normocephalic Neck: Normal Inspection, Full Range of Motion Respiratory/Chest: No Respiratory Distress, Lungs Clear, Normal Breath Sounds, No Accessory Muscle Use Cardiovascular: Normal Peripheral Pulses, No Gallop, No JVD, No Murmur, No Rub, Tachycardia (regular) Peripheral Pulses: 4+: Radial (L), Radial (R) GI/Abdominal: Normal Bowel Sounds, Soft, No Organomegaly, No Distention, No Abnormal Bruit, No Mass, Tender (Mild, right upper quadrant only. Essentially nontender elsewhere.), Other (Obese) (Male) Exam: Deferred Rectal (Males) Exam: Deferred Back Exam: Normal Inspection, Full Range of Motion, NT Extremities: Normal Inspection, Normal Range of Motion, Normal Capillary Refill Neurological: Alert, Oriented, Normal Cognition, No Motor/Sensory Deficits Psychiatric: Normal Affect Skin Exam: Warm, Intact, Normal Color, No Rash, Diaphoretic Course - Vital Signs Last Recorded V/S: Last Vital Signs Temp 35.8 C 12/07/18 13:27 Pulse 129 H 12/07/18 13:27 Resp 16 12/07/18 13:27 BP 168/98 H 12/07/18 14:30 Pulse Ox 97 12/07/18 13:27 - Orders/Labs/Meds Meds: Medications Discontinued Medications Generic Name Dose Route Start Last Admin Trade Name Freq PRN Reason Stop Dose Admin Clonidine HCl 0.2 mg 12/07/18 14:14 12/07/18 14:30 Catapres PO 12/07/18 14:15 0.2 mg ONETIME STA Administration Diazepam 10 mg 12/07/18 14:15 12/07/18 14:31 Valium IV 12/07/18 14:16 10 mg ONETIME STA Administration Dicyclomine HCl 20 mg 12/07/18 14:15 12/07/18 14:30 Bentyl PO 12/07/18 14:16 20 mg ONETIME STA Administration Hydromorphone HCl 4 mg 12/07/18 18:10 12/07/18 18:30 Dilaudid IVPUSH 12/07/18 18:11 4 mg ONETIME STA Administration Promethazine HCl 25 mg/ Sodium 51 mls @ 100 mls/hr 12/07/18 14:16 12/07/18 14 :31 Chloride IV 12/07/18 14:46 100 mls/hr ONETIME ONE Administration Ketorolac Tromethamine 60 mg 12/07/18 14:04 12/07/18 14:16 Toradol IM 12/07/18 14:05 60 mg ONETIME ONE Administration Ondansetron HCl 4 mg 12/07/18 18:10 12/07/18 18:35 Zofran IVPUSH 12/07/18 18:11 Not Given ONETIME STA Ondansetron HCl 4 mg 12/07/18 18:11 12/07/18 18:29 Zofran IVPUSH 12/07/18 18:12 4 mg ONETIME ONE Administration Promethazine HCl Confirm 12/07/18 14:29 12/07/18 14:41 Phenergan Administered 12/07/18 14:30 Not Given Dose [facility] - Re-Assessments/Exams Free Text/Narrative Re-Assessment/Exam: 12/07/18 14:17 I have ordered a CT of the pelvis alone, without contrast, to look for an atomic abnormality, although I am not optimistic that any will be found. I suspect that the patient's lower left back pain is primarily an exacerbation of his chronic back pain, made worse due to his opioid withdrawal. To treat the patient's opioid withdrawal, we are not in a position to continue to give him oral Dilaudid - he took his prescribed Dilaudid far in excess. The prescription that he filled on 12/02/2017 was supposed to last him through the end of the month, but lasted him only 5 days. Similarly, we are not able to start the patient on either methadone or Suboxone. The only thing that I can offer him is a non-opioid pharmacologic withdrawal, and for that I have ordered IM Toradol, oral clonidine, oral Bentyl, IV Valium, and IV promethazine, to treat his symptoms of pain, agitation, abdominal cramps, and nausea. 12/07/18 14:48 CT of the pelvis without contrast is read by Dr. Piper as: 1. Disc space narrowing at L5-S1 with mild diffuse posterior disc bulge. 2. No additional abnormality is seen on CT study of the pelvis. 12/07/18 17:14 The patient was reevaluated. He stated that he had some relief following the Toradol, clonidine, Bentyl, Valium, and promethazine, but the relief has worn off, and he is feeling strong withdraws again. I offered to call our Hospitalist to see if she would put him in overnight, with the plan that he would be discharge in the morning, to follow-up with his prescribing provider, Brittani Young. The patient was agreeable. Case discussed with Dr. Perry at 17:10. She declined to place the patient into observation, feeling that he would require too many resources, as there are other challenging patients on the [facility] floor. 12/07/18 18:12 I have struggled with what to do with this patient. Non-opioid pharmacologic therapy does not appear to be adequately effective, and opioid withdrawal is known to be very unpleasant. I cannot in good conscience simply write a prescription for oral Dilaudid, and, as above, neither methadone nor Suboxone are options at this facility. They would only be considered if the long-term plan for the patient is for him to stay off oral Dilaudid, anyway, which I doubt is his preference. The patient is prescribed Dilaudid 2 mg BID, but in fact has been taking 2 mg every 3 to 4 hours. This is problematic, because even if I were to give him a dose to relieve his symptoms now, he may be symptomatic in a few hours. I believe, however, that this is the best offer that I can make for him. I proposed that if he can get a ride home - and that person is physically in the ED - that we give him a shot of Dilaudid and another shot of Zofran, then discharge him home. He will need to contact Ms. Young in the morning, and I explained that his treatment cannot consist of retuning to the ED if he begins to feel withdrawal symptoms again. Any plan of care will have to come from Ms. Young and not include [place], as we are not a licensed treatment facility. The patient agreed that that was reasonable. I have therefore ordered IV Dilaudid, 4 mg to be given, along with IV Zofran 8 mg, once his ride is physically present in the ED. The patient will then be discharged home. Departure - Departure Time of Disposition: 18:28 Disposition: Home, Self-Care 01 Condition: Fair Clinical Impression: Opioid dependence with withdrawal - Discharge Information *PRESCRIPTION DRUG MONITORING PROGRAM REVIEWED*: Not Applicable *COPY OF PRESCRIPTION DRUG MONITORING REPORT IN PATIENT [place]: Not Applicable Instructions: Opioid Withdrawal Referrals: Domenic Reilly PA-C [Primary Care Provider] - Sandra Young NP [Ordering Only Provider] - Forms: ED Department Discharge Additional Instructions: You were seen in the emergency room for lower left back pain, nausea and vomiting, sweatiness, for the past couple of days. Workup in the ER included a CT scan of your pelvis, which found mild degenerative disc disease, common for someone your age. There were no other significant findings. The cause of your symptoms is due to withdraw from oral Dilaudid. You were treated with non-opioid medical management, including Toradol, clonidine, Bentyl, Valium, and promethazine. You were then treated with IV Dilaudid and IV Zofran, with the understanding that any further Dilaudid, going forward, needs to come from your single prescriber, Brittani Young. Contact Ms. Young first thing tomorrow morning, to make arrangements for replenishing your oral Dilaudid. Be aware that this ED cannot be part of that plan. If any other medical issues, please do not hesitate to return to the ER.
[2018-12-07] MEDS ORDERED: Promethazine 25 MG/ML SDV ONE (14:29)
[2018-12-07 14:31] VITALS: BP 168/98
--- NOTE | 2018-12-07 14:35 | CT ---
CT pelvis Technique: Multiple axial sections were obtained through the pelvis. Reconstructed sagittal and coronal images were reviewed. Study performed utilizing bone algorithm. Findings: Moderate to severe disc space narrowing is noted at L5-S1. Mild diffuse posterior disc bulge is noted at L5-S1. Sacroiliac joints appear within normal limits. Small cysts are noted within the upper pelvis with sclerotic rims which are felt to be incidental. No fracture is seen. No discrete soft tissue abnormality is seen within the pelvis. No muscle abnormality is seen on noncontrast study. Impression: 1. Disc space narrowing at L5-S1 with mild diffuse posterior disc bulge. 2. No additional abnormality is seen on CT study of the pelvis. Diagnostic code #2
[2018-12-07] MEDS ORDERED: HYDROmorphone 1 MG/ML Syringe IVPUSH STA (18:10)
[2018-12-07] MEDS ORDERED: Ondansetron 4 MG/2 ML SDV IVPUSH STA (18:10)
[2018-12-07] MEDS ORDERED: Ondansetron 4 MG/2 ML SDV IVPUSH ONE (18:11)
== END 2018-12-07 18:40 | disposition home or self-care (01) ==
LOC: JD.ED 13:21
DX: F11.23 Opioid dependence with withdrawal (principal); M79.18 Myalgia, other site; Z79.899 Other long term (current) drug therapy; K21.9 Gastro-esophageal reflux disease without esophagitis; F41.9 Anxiety disorder, unspecified; F32.9 Major depressive disorder, single episode, unspecified; F17.210 Nicotine dependence, cigarettes, uncomplicated
CPT/HCPCS: 72192; 96365; 96372; 96375; 99284; A9270; J1170; J1885; J2405; J2550; J3360; J7050

== ENCOUNTER 2019-03-03 05:26 | Emergency (ER) | payer BC, MEDICAID ==
[2019-03-03 05:39] VITALS: BP 142/110
[2019-03-03] MEDS ORDERED: Metoclopramide 10 MG/2 ML SDV IVPUSH ONE (05:47)
[2019-03-03] MEDS ORDERED: HYDROmorphone 1 MG/ML Syringe IVPUSH ONE ×2 (05:48→07:02)
--- NOTE | 2019-03-03 05:52 | EDM.PDOC ---
ED HPI GENERAL MEDICAL PROBLEM - General Chief Complaint: Abdominal Pain Stated Complaint: PANCREATIC PAIN Time Seen by Provider: 03/03/19 05:47 Source of Information: Reports: Patient History Limitations: Reports: No Limitations - History of Present Illness INITIAL COMMENTS - FREE TEXT/NARRATIVE: 33-year-old male presents to the ED with severe epigastric right upper quadrant abdominal pain rating to his back. Patient has an 8 year history of chronic pancreatitis after having a pancreatic duct stone set off a bout of serious pancreatitis. Patient has had stents placed. Gallbladder is been removed 8 years ago. Continues to experiment intermittent flareups of severe abdominal pain associated nausea and vomiting of bilious material and pain is very similar to gallbladder attacks that he had prior to having his gallbladder removed. Stools tend to be loose and psychiatric i.e. they float on the toilet bowl fluid. He's been living on clear fluids. If he tries seated all usually vomits or gets worsening of pain. Hasn't drank any alcohol for multiple years. Current flareup started on March 01 and has persisted. He states he is missing a great deal of work often, work for 2 hours at a time before he is to go home due to the severity of the pain. Currently on no medications other than using cannabinoids or oils and marijuana to try and ease the pain which helps somewhat. Is been off Dilaudid tablets for about 3 weeks patient does remain on Creon or pancreatic enzyme supplements before meals and snacks. Reports she's lost 5-6 pounds of weight in the last 4 days. Onset: Sudden Onset Date: 03/01/19 Duration: Day(s):, Getting Worse Location: Reports: Abdomen, Radiates to (Severe right upper quadrant epigastric abdominal pain associated with nausea and vomiting.) Quality: Reports: Ache ( Radiates through to his right back inferior to the right scapula and to the midline.), Other Severity: Severe Improves with: Reports: None (10 out of 10) Worsens with: Reports: None Context: Reports: Other (Spontaneous reoccurrence of chronic pancreatitis.). Denies: Activity, Exercise, Lifting, Sick Contact, Trauma Associated Symptoms: Reports: Loss of Appetite (Bilious material), Malaise, Nausea/Vomiting, Other (Been basically living on clear fluids.). Denies: Headaches Treatments [employer]: Reports: Other (see below) (Marijuana helps a little bit.) Right Upper Abdomen Pain Score (Numeric/FACES): 10 - Related Data Allergies Allergy/AdvReac Type Severity Reaction Status Date / Time cat dander Allergy Itching Verified 03/03/19 05:39 Home Meds: Home Meds Omeprazole [Prilosec] 20 mg PO BID 04/05/14 [History] Amylase/Lipase/Protease [Angel DR 24,000 Unit] 5 cap PO TIDMEALS 08/02/14 [ History] HYDROmorphone [Dilaudid] 2 mg PO BID PRN 10/15/18 [History] Ondansetron [Zofran ODT] 8 mg PO BID PRN 12/18/18 [History] HYDROmorphone [Dilaudid] 2 mg PO Q12H PRN #24 tab 03/03/19 [Rx] Ondansetron HCl [Zofran] 8 mg PO Q6H PRN #20 tablet 03/03/19 [Rx] Past Medical History - Past Health History Medical/Surgical History: Denies Medical/Surgical History HEENT History: Reports: Impaired Vision Other HEENT History: wears glasses Cardiovascular History: Reports: None Respiratory History: Reports: None Gastrointestinal History: Reports: GERD, Other (See Below) Other Gastrointestinal History: Stents placed in pancrease, sphinctor of asad surgery . 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 Stone was removed last summer in May-Jun Hematologic History: Reports: None Immunologic History: Reports: None Oncologic (Cancer) History: Reports: None Dermatologic History: Reports: Other (See Below) Other Dermatologic History: allergic to cats - Infectious Disease History Infectious Disease History: Reports: Chicken Pox, Shingles - Past Surgical History GI Surgical History: Reports: Cholecystectomy, EGD, ERCP Social & Family History - Family History Family Medical History: Noncontributory Cardiac: Reports: CAD, Stent Respiratory: Reports: None GI: Reports: None Neurological: Reports: CVA Oncologic: Reports: Breast, Other (See Below) Other Oncologic Family History: STOMACH - Caffeine Use Caffeine Use: Reports: None - Living Situation & Occupation Living situation: Reports: Single, Alone 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[employer] ED ROS GENERAL - Review of Systems Review Of Systems: See Below Constitutional: Reports: Malaise, Weakness, Fatigue, Decreased Appetite, Weight Loss. Denies: Fever, Chills HEENT: Reports: Glasses Respiratory: Reports: Shortness of Breath Cardiovascular: Reports: No Symptoms Endocrine: Reports: No Symptoms GI/Abdominal: Reports: Abdominal Pain, Diarrhea (See history of present illness diarrhea with steatorrhea.), Nausea, Vomiting (Bilious emesis 2 times overnight. ) : Reports: Other (Urine is dark in color) Musculoskeletal: Reports: No Symptoms Skin: Reports: No Symptoms Neurological: Reports: No Symptoms Psychiatric: Reports: No Symptoms Hematologic/Lymphatic: Reports: No Symptoms Immunologic: Reports: No Symptoms ED EXAM, GI/ABD - Physical Exam Exam: See Below Exam Limited By: No Limitations General Appearance: Alert, WD/WN, Moderate Distress (Appears to be in a good deal of discomfort. Blood pressure is elevated at 140-110 resting heart rate is 1 33/m. Afebrile.) Eyes: Bilateral: Normal Appearance Throat/Mouth: Other Head: Atraumatic, Normocephalic (Tongue is mildly dry and coated) Neck: Normal Inspection, Supple, Non-Tender, Full Range of Motion. No: Lymphadenopathy (L), Lymphadenopathy (R) Respiratory/Chest: No Respiratory Distress, Lungs Clear, Normal Breath Sounds, No Accessory Muscle Use GI/Abdominal Exam: No Organomegaly (Cannot palpate his liver real well.), No Abnormal Bruit, Guarding (Patient is very tender right upper quadrant of the abdomen with a positive Drummond sign. Clinically he is guarding with peritoneal signs), Rebound, Tender, Abnormal Bowel Sounds (Bowel sounds are fairly quiet sent at the time of exam.). No: Rigid Back Exam: Normal Inspection, Full Range of Motion, CVA Tenderness (R). No: CVA Tenderness (L) (Mild.) Extremities: Normal Inspection, Normal Range of Motion, Non-Tender, No Pedal Edema Neurological: Alert, Oriented, CN II-XII Intact, Normal Cognition Psychiatric: Anxious, Other Skin Exam: Warm, Dry (In a good deal of pain.), Intact, Normal Color, No Rash, Diaphoretic Course - Vital Signs Last Recorded V/S: Last Vital Signs Temp 36.6 C 03/03/19 05:34 Pulse 133 H 03/03/19 05:34 Resp 18 03/03/19 05:34 BP 142/110 H 03/03/19 05:34 Pulse Ox 100 03/03/19 05:34 - Orders/Labs/Meds Orders: Active Orders 24 hr Category Date Time Status DRUG SCREEN, URINE [URCHEM] Stat Lab 03/03/19 05:49 Ordered URINALYSIS W/MICROSCOPIC [UA W/MICROSCOPIC] [URIN] Stat Lab 03/03/19 05:49 Ordered Dextrose 5%-0.9% NaCl [Dextrose 5%-Normal Saline] 1,000 Med 03/03/19 06:00 Active ml IV ASDIRECTED Medication Orders Dextrose/Sodium Chloride (Dextrose 5%-Normal Saline) 1,000 mls @ 999 mls/hr IV ASDIRECTED MACHELLE Last Admin: 03/03/19 06:02 Dose: 999 mls/hr Labs: Laboratory Tests 03/03/19 03/03/19 Range/Units 06:00 06:00 WBC 15.81 H (4.23-9.07) K/mm3 RBC 5.41 (4.63-6.08) M/mm3 Hgb 16.3 (13.7-17.5) gm/L Hct 47.8 (40.1-51.0) % MCV 88.4 (79.0-92.2) fl MCH 30.1 (25.7-32.2) pg MCHC 34.1 (32.2-35.5) g/dl RDW Std Deviation 44.3 H (35.1-43.9) fL Plt Count 235 (163-337) K/mm3 MPV 11.6 (9.4-12.3) fl Neutrophils % (Manual) 67 H (40-60) % Band Neutrophils % 0 (0-10) % Lymphocytes % (Manual) 24 (20-40) % Atypical Lymphs % 0 % Monocytes % (Manual) 8 (2-10) % Eosinophils % (Manual) 1 (0.8-7.0) % Basophils % (Manual) 0 L (0.2-1.2) Platelet Estimate Adequate RBC Morph Comment Normal Sodium 142 (136-145) mEq/L Potassium 3.6 (3.5-5.1) mEq/L Chloride 104 (98-107) mEq/L Carbon Dioxide 25 (21-32) mEq/L Anion Gap 16.6 H (5-15) BUN 8 (7-18) mg/dL Creatinine 1.0 (0.7-1.3) mg/dL Est Cr Clr Drug Dosing 122.16 mL/min Estimated GFR (MDRD) > 60 (>60) mL/min BUN/Creatinine Ratio 8.0 L (14-18) Glucose 114 H (74-106) mg/dL Calcium 9.4 (8.5-10.1) mg/dL Total Bilirubin 1.1 H (0.2-1.0) mg/dL GGT 9 L (15-85) U/L AST 10 L (15-37) U/L ALT 10 L (16-63) U/L Alkaline Phosphatase 92 (46-116) U/L C-Reactive Protein < 0.2 (<1.0) mg/dL Total Protein 7.9 (6.4-8.2) g/dl Albumin 4.5 (3.4-5.0) g/dl Globulin 3.4 gm/dL Albumin/Globulin Ratio 1.3 (1-2) Lipase 120 (73-393) U/L Meds: Medications Generic Name Dose Route Start Last Admin Trade Name Freq PRN Reason Stop Dose Admin Dextrose/Sodium Chloride 1,000 mls @ 999 mls/hr 03/03/19 06:00 03/03/19 06:02 Dextrose 5%-Normal Saline IV 999 mls/hr ASDIRECTED MACHELLE Administration Discontinued Medications Generic Name Dose Route Start Last Admin Trade Name Freq PRN Reason Stop Dose Admin Hydromorphone HCl 1 mg 03/03/19 05:48 03/03/19 06:03 Dilaudid IVPUSH 03/03/19 05:49 1 mg ONETIME ONE Administration Hydromorphone HCl 1 mg 03/03/19 07:02 03/03/19 07:11 Dilaudid IVPUSH 03/03/19 07:03 1 mg ONETIME ONE Administration Metoclopramide HCl 10 mg 03/03/19 05:47 03/03/19 06:03 Reglan IVPUSH 03/03/19 05:48 10 mg ONETIME ONE Administration - Radiology Interpretation Free Text/Narrative:: 33-year-old male who suffers from chronic pancreatitis after having a gallstone lodged in his pancreatic duct about 8 years ago presents once again to the ED for evaluation and pain management. Patient states current flareup started 2-1/ 2 days ago and he's continued to have ileus emesis and not being able to keep down even fluids the last day or so. Having chronic diarrhea with steatorrhea. Pain is constant right upper quadrant and epigastric rating through to his back characteristic of previous attacks. Patient is been only going to work for 2 hours a day the last 2 days due to the severity of the pain. Didn't sleep at all last night due to the severity of the pain Examination reveals marked tenderness along" upper quadrant exam. He is guarding severely. Is showing evidence of peritoneal signs. Plan IV D5 normal saline at open. Will be given Dilaudid 1 mg IV with Reglan 10 mg IV for pain and nausea. Labs to be done to include serum lipase CRP and GGT. Generation of need for possible CT of the abdomen to rule out pancreatic pseudocyst development. - Re-Assessments/Exams Free Text/Narrative Re-Assessment/Exam: 03/03/19 07:03 patient reports his pain is down to about a 4 out of 10. No further vomiting. Will repeat Dilaudid 1 mg IV. 03/03/19 07:04 Labs are back revealing an elevated white count at 15.81 with 67 % neutrophils and no bands. This is presumably due to stress response. Hemoglobin is 16.3 with hematocrit of 47.8 indicating mild hemoconcentration. Platelet count is 2 and 35,000. Sodium is 142 with a potassium of 3.6. Chloride 104 bicarbonate 25. Anion gap is slightly elevated at 16.6. BUN is 8 with a creatinine of 1.0. GFR remains greater than 60. Glucose is 114 calcium was 9.4. Total bilirubin is 1.1. AST is 10 ALT is 10 alkaline phosphatase stasis 92 therefore not showing any signs of biliary tree obstruction. C-reactive protein is less than 0.2. Lipase is 120. Departure - Departure Time of Disposition: 07:30 Disposition: Home, Self-Care 01 Condition: Fair Clinical Impression: Chronic recurrent pancreatitis, History of chronic pancreatitis - Discharge Information *PRESCRIPTION DRUG MONITORING PROGRAM REVIEWED*: Not Applicable *COPY OF PRESCRIPTION DRUG MONITORING REPORT IN PATIENT [place]: Not Applicable Prescriptions: HYDROmorphone [Dilaudid] 2 mg PO Q12H PRN #24 tab PRN Reason: chronic pancreatitis Ondansetron HCl [Zofran] 8 mg PO Q6H PRN #20 tablet PRN Reason: Nausea and vomiting Referrals: PCP,None [Primary Care Provider] - Forms: ED Department Discharge Additional Instructions: Evaluation the emergency room this morning in regards to severe right upper quadrant epigastric abdominal pain secondary to recurrent bout of by history of chronic pancreatitis with intermittent severe flareups which is once again occurred over the last several days. Lab tests reveal an elevated white count due to pain response. Electrolytes were otherwise normal and serum lipase today or what today was in the normal range at 120. Is quite common that after you have pancreatitis several times the enzymes do not go up in the bloodstream. You 're treated with intravenous fluids and Dilaudid 1 mg IV 2 doses and Reglan 10 mg IV to arrest vomiting. Continue clear fluids such as Gatorade/Powerade to maintain hydration. Clear fluid diet primarily for the next several days until the pain resolves. I did write a prescription for Dilaudid 2 mg tablets to be taken 1 every 12 hours as necessary for pain relief. Similarly Zofran 8 mg tablets to be taken 1 every 6-8 hours as necessary for relief of nausea vomiting. I'll have to set up with a chronic pain management physician in [place] for chronic pain management. - My Orders Last 24 Hours: My Active Orders 03/03/19 05:49 DRUG SCREEN, URINE [URCHEM] Stat URINALYSIS W/MICROSCOPIC [UA W/MICROSCOPIC] [URIN] Stat 03/03/19 06:00 Dextrose 5%-0.9% NaCl [Dextrose 5%-Normal Saline] 1,000 ml IV ASDIRECTED - Assessment/Plan Last 24 Hours: My Active Orders 03/03/19 05:49 DRUG SCREEN, URINE [URCHEM] Stat URINALYSIS W/MICROSCOPIC [UA W/MICROSCOPIC] [URIN] Stat 03/03/19 06:00 Dextrose 5%-0.9% NaCl [Dextrose 5%-Normal Saline] 1,000 ml IV ASDIRECTED
[2019-03-03] MEDS ORDERED: Dextrose 5%-0.9% NaCl 1,000 ML IV SCH (06:00)
== END 2019-03-03 07:41 | disposition home or self-care (01) ==
LOC: JD.ED 05:26
DX: K86.1 Other chronic pancreatitis (principal); K21.9 Gastro-esophageal reflux disease without esophagitis; F41.9 Anxiety disorder, unspecified; F32.9 Major depressive disorder, single episode, unspecified; Z79.899 Other long term (current) drug therapy; Z91.09 Other allergy status, other than to drugs and biological substances
CPT/HCPCS: 36415; 80053; 82977; 83690; 85007; 85027; 86140; 96361; 96374; 96375; 96376; 99284; J1170; J2765; J7042

== ENCOUNTER 2019-03-29 11:56 | Emergency (ER) | payer MEDICAID ==
[2019-03-29 12:07] VITALS: BP 130/105
--- NOTE | 2019-03-29 12:14 | EDM.PDOC ---
ED HPI GENERAL MEDICAL PROBLEM - General Chief Complaint: Abdominal Pain Stated Complaint: ABDOMINAL PAIN Time Seen by Provider: 03/29/19 12:06 Source of Information: Reports: Patient, Old Records, RN Notes Reviewed History Limitations: Reports: No Limitations - History of Present Illness INITIAL COMMENTS - FREE TEXT/NARRATIVE: Patient is a 33-year-old male who presents to the ED for the evaluation of right upper abdominal pain. The patient states that this is the same sort of abdominal pain, that usually brings him into the ER. He states he has set up care with Dr. Artie Cannon, and is under a pain contract with him. The patient states that this pain started getting out of control at around 4 AM this morning. He states that Dr. Cannon started him on oxycodone extended-release, this seems to be working pretty well however he had some breakthrough pain and has already used his PRN doses of Dilaudid today. The patient states he's vomited numerous times today, and he is actively vomiting during the time of triage. He notes the pain to be sharp, stabbing, burning in nature as if he would want to rip his guts out. The pain is located in the same area, the right upper quadrant The patient is in visible discomfort, and is crawling around on the ED cot at time of evaluation. The patient states he has not had any diarrhea with this, and had a normal bowel movement for himself last night. He further denies any chest pain, shortness of breath or otherwise. He states that he is smoking marijuana from time to time as well, and Dr. Cannon is aware of this as well. Patient has had his gallbladder removed, but still retains his appendix. He further notes a history of chronic pancreatitis, and sphincter of Oddi dysfunction. Treatments CLOTHES WRINGER: Reports: Other Medication(s) Other Treatments CLOTHES WRINGER: dilaudid - Related Data Allergies Allergy/AdvReac Type Severity Reaction Status Date / Time cat dander Allergy Itching Verified 03/29/19 12:07 Home Meds: Home Meds Omeprazole [Prilosec] 20 mg PO BID 04/05/14 [History] Amylase/Lipase/Protease [Angel P[place] 24,000 Unit] 5 cap PO TIDMEALS 08/02/14 [ History] HYDROmorphone [Dilaudid] 2 mg PO BID PRN 10/15/18 [History] Ondansetron [Zofran ODT] 8 mg PO BID PRN 12/18/18 [History] HYDROmorphone [Dilaudid] 2 mg PO Q12H PRN #24 tab 03/03/19 [Rx] Ondansetron HCl [Zofran] 8 mg PO Q6H PRN #20 tablet 03/03/19 [Rx] oxyCODONE ER [OxyCONTIN] 10 mg PO Q12H PRN 03/29/19 [History] Past Medical History - Past Health History Medical/Surgical History: Denies Medical/Surgical History HEENT History: Reports: Impaired Vision Other HEENT History: wears glasses Cardiovascular History: Reports: None Respiratory History: Reports: None Gastrointestinal History: Reports: GERD, Other (See Below) Other Gastrointestinal History: Stents placed in pancrease, sphinctor of asad surgery . 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 Stone was removed last summer in May-Jun Hematologic History: Reports: None Immunologic History: Reports: None Oncologic (Cancer) History: Reports: None Dermatologic History: Reports: Other (See Below) Other Dermatologic History: allergic to cats - Infectious Disease History Infectious Disease History: Reports: Chicken Pox, Shingles - Past Surgical History GI Surgical History: Reports: Cholecystectomy, EGD, ERCP Social & Family History - Family History Family Medical History: Noncontributory Cardiac: Reports: CAD, Stent Respiratory: Reports: None GI: Reports: None Neurological: Reports: CVA Oncologic: Reports: Breast, Other (See Below) Other Oncologic Family History: STOMACH - Caffeine Use Caffeine Use: Reports: None - Living Situation & Occupation Living situation: Reports: Single, Alone 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[employer]) [employer] [facility] - Review of Systems Review Of Systems: See Below Constitutional: Denies: Fever, Chills HEENT: Reports: No Symptoms Respiratory: Denies: Shortness of Breath, Cough Cardiovascular: Denies: Chest Pain Endocrine: Reports: No Symptoms GI/Abdominal: Reports: Abdominal Pain (RUQ), Nausea, Vomiting. Denies: Constipation, Diarrhea : Reports: No Symptoms Musculoskeletal: Reports: No Symptoms Skin: Reports: No Symptoms Neurological: Reports: No Symptoms Psychiatric: Reports: No Symptoms Hematologic/Lymphatic: Reports: No Symptoms Immunologic: Reports: No Symptoms ED EXAM, GI/ABD - Physical Exam Exam: See Below Exam Limited By: No Limitations General Appearance: Alert, WD/WN, Mild Distress (Patient is visibly uncomfortable, writhing in pain on ED cot at time of initial eval.) Eyes: Bilateral: Normal Appearance Ears: Normal External Exam Nose: Normal Inspection Throat/Mouth: Normal Inspection, Normal Lips, Normal Teeth, Normal Gums, Normal Oropharynx, Normal Voice, No Airway Compromise Head: Atraumatic, Normocephalic Neck: Normal Inspection Respiratory/Chest: No Respiratory Distress, Lungs Clear, Normal Breath Sounds, No Accessory Muscle Use, Chest Non-Tender Cardiovascular: Normal Peripheral Pulses, Regular Rate, Rhythm, No Murmur GI/Abdominal Exam: Soft, Tender (RUQ mainly and over epigastrium), Abnormal Bowel Sounds (hypoactive ). No: No Distention, No Mass Extremities: Normal Inspection, Normal Capillary Refill Neurological: Alert, Oriented, Normal Cognition, No Motor/Sensory Deficits Psychiatric: Normal Affect, Normal Mood Skin Exam: Warm, Dry, Intact, Normal Color, No Rash Course - Vital Signs Last Recorded V/S: Last Vital Signs Temp 97.8 F 03/29/19 12:04 Pulse 105 H 03/29/19 12:04 Resp 20 03/29/19 12:04 BP 130/105 H 03/29/19 12:04 Pulse Ox 98 03/29/19 12:04 - Orders/Labs/Meds Orders: Active Orders 24 hr Category Date Time Status Peripheral IV Care [RC] . DIRECTED Care 03/29/19 12:16 Ordered Sodium Chloride 0.9% [Normal Saline] 1,000 ml Med 03/29/19 12:30 Ordered IV ASDIRECTED Sodium Chloride 0.9% [Saline Flush] Med 03/29/19 12:16 Ordered 10 ml FLUSH ASDIRECTED PRN Peripheral IV Insertion Adult [OM.PC] Routine Oth 03/29/19 12:16 Ordered Medication Orders Sodium Chloride (Normal Saline) 1,000 mls @ 999 mls/hr IV ASDIRECTED MACHELLE Last Admin: 03/29/19 12:25 Dose: 999 mls/hr Sodium Chloride (Saline Flush) 10 ml FLUSH ASDIRECTED PRN PRN Reason: Keep Vein Open Last Admin: 03/29/19 12:25 Dose: 10 ml Labs: Laboratory Tests 03/29/19 03/29/19 Range/Units 12:15 12:15 WBC 14.34 H (4.23-9.07) K/mm3 RBC 4.90 (4.63-6.08) M/mm3 Hgb 15.0 (13.7-17.5) gm/L Hct 43.6 (40.1-51.0) % MCV 89.0 (79.0-92.2) fl MCH 30.6 (25.7-32.2) pg MCHC 34.4 (32.2-35.5) g/dl RDW Std Deviation 44.1 H (35.1-43.9) fL Plt Count 278 (163-337) K/mm3 MPV 11.4 (9.4-12.3) fl Neutrophils % (Manual) 67 H (40-60) % Band Neutrophils % 0 (0-10) % Lymphocytes % (Manual) 29 (20-40) % Atypical Lymphs % 0 % Monocytes % (Manual) 3 (2-10) % Eosinophils % (Manual) 0 L (0.8-7.0) % Basophils % (Manual) 1 (0.2-1.2) Platelet Estimate Adequate Plt Morphology Comment Normal RBC Morph Comment Normal Sodium 142 (136-145) mEq/L Potassium 3.9 (3.5-5.1) mEq/L Chloride 106 (98-107) mEq/L Carbon Dioxide 26 (21-32) mEq/L Anion Gap 13.9 (5-15) BUN 11 (7-18) mg/dL Creatinine 0.9 (0.7-1.3) mg/dL Est Cr Clr Drug Dosing 135.73 mL/min Estimated GFR (MDRD) > 60 (>60) mL/min BUN/Creatinine Ratio 12.2 L (14-18) Glucose 122 H (74-106) mg/dL Calcium 9.3 (8.5-10.1) mg/dL Total Bilirubin 0.6 (0.2-1.0) mg/dL AST 15 (15-37) U/L ALT 17 (16-63) U/L Alkaline Phosphatase 93 (46-116) U/L Total Protein 7.7 (6.4-8.2) g/dl Albumin 4.0 (3.4-5.0) g/dl Globulin 3.7 gm/dL Albumin/Globulin Ratio 1.1 (1-2) Lipase 283 (73-393) U/L Meds: Medications Generic Name Dose Route Start Last Admin Trade Name Freq PRN Reason Stop Dose Admin Sodium Chloride 1,000 mls @ 999 mls/hr 03/29/19 12:30 03/29/19 12:25 Normal Saline IV 999 mls/hr ASDIRECTED MACHELLE Administration Sodium Chloride 10 ml 03/29/19 12:16 03/29/19 12:25 Saline Flush FLUSH 10 ml ASDIRECTED PRN Administration Keep Vein Open Discontinued Medications Generic Name Dose Route Start Last Admin Trade Name Makayla PRN Reason Stop Dose Admin Hydromorphone HCl 1 mg 03/29/19 12:16 03/29/19 12:25 Dilaudid IVPUSH 03/29/19 12:17 1 mg ONETIME ONE Administration Hydromorphone HCl 1 mg 03/29/19 12:39 03/29/19 12:43 Dilaudid IVPUSH 03/29/19 12:40 1 mg ONETIME ONE Administration Ketorolac Tromethamine 30 mg 03/29/19 13:19 03/29/19 13:24 Toradol IVPUSH 03/29/19 13:20 30 mg ONETIME ONE Administration Metoclopramide HCl 10 mg 03/29/19 12:51 03/29/19 12:57 Reglan IVPUSH 03/29/19 12:52 10 mg ONETIME ONE Administration Ondansetron HCl 4 mg 03/29/19 12:16 03/29/19 12:25 Zofran IVPUSH 03/29/19 12:17 4 mg ONETIME ONE Administration - Re-Assessments/Exams Free Text/Narrative Re-Assessment/Exam: 03/29/19 12:28 Patient presents to the ED for evaluation of abdominal pain. The pain is very similar to the same pain that he's had a past. I have ordered IV fluids, 1 mg IV Dilaudid, 4 mg IV Zofran for initial treatment, have ordered a CBC, CMP, lipase for laboratory evaluation. On previous visits, his laboratory evaluations have all been WNL. 03/29/19 12:44 RN informed me that the patient is still in a good amount of pain, I did order 1 more mg IV Dilaudid for pain relief. 03/29/19 13:22 Patient was reassessed at bedside, and states that his pain is now out of 4 or 5 out of 10. Have offered the gentleman 30 mg IV Toradol for further pain relief, he would accept this. He is realistic in the fact that he probably won' t walk out of here totally pain-free at today's visit. He states he has enough nausea medications at home as well. Departure - Departure Time of Disposition: 13:50 Disposition: Home, Self-Care 01 Condition: Fair Clinical Impression: Abdominal pain Qualifiers: Abdominal location: right upper quadrant Qualified Code(s): R10.11 - Right upper quadrant pain Vomiting Qualifiers: Vomiting type: unspecified Vomiting Intractability: non-intractable Nausea presence: with nausea Qualified Code(s): R11.2 - Nausea with vomiting, unspecified - Discharge Information *PRESCRIPTION DRUG MONITORING PROGRAM REVIEWED*: No *COPY OF PRESCRIPTION DRUG MONITORING REPORT IN PATIENT MIKIE: No Instructions: Nausea and Vomiting, Adult, [id number], Abdominal Pain, Adult, [id number] Referrals: Artie Rogers MD [Primary Care Provider] - Forms: ED Department Discharge Additional Instructions: You have been evaluated in the ED for nausea/vomiting and abdominal pain. You have received IV fluid in the ED to help with the dehydration from the vomiting, you have been given 2 mg IV Dilaudid, 4 mg IV Zofran, 10 mg IV Reglan , and 30 mg IV Toradol for your nausea and pain relief. Over the next 24-48 hours please try to limit diet to clear liquids and advance as tolerate to a bland diet to alleviate symptoms of nausea/vomiting. Please use your home Zofran every 8 hours as needed for nausea. Please return to the ED if your symptoms should change or worsen. - My Orders Last 24 Hours: My Active Orders 03/29/19 12:16 Peripheral IV Care [RC] . DIRECTED Sodium Chloride 0.9% [Saline Flush] 10 ml FLUSH ASDIRECTED PRN Peripheral IV Insertion Adult [OM.PC] Routine 03/29/19 12:30 Sodium Chloride 0.9% [Normal Saline] 1,000 ml IV ASDIRECTED - Assessment/Plan Last 24 Hours: My Active Orders 03/29/19 12:16 Peripheral IV Care [RC] . DIRECTED Sodium Chloride 0.9% [Saline Flush] 10 ml FLUSH ASDIRECTED PRN Peripheral IV Insertion Adult [OM.PC] Routine 03/29/19 12:30 Sodium Chloride 0.9% [Normal Saline] 1,000 ml IV ASDIRECTED
[2019-03-29] MEDS ORDERED: HYDROmorphone 1 MG/ML Syringe IVPUSH ONE ×2 (12:16→12:39)
[2019-03-29] MEDS ORDERED: Ondansetron 4 MG/2 ML SDV IVPUSH ONE (12:16)
[2019-03-29] MEDS ORDERED: Sodium Chloride 0.9% 10 ML Syringe FLUSH PRN (12:16)
[2019-03-29] MEDS ORDERED: Sodium Chloride 0.9% 1,000 ML IV SCH (12:30)
[2019-03-29] MEDS ORDERED: Metoclopramide 10 MG/2 ML SDV IVPUSH ONE (12:51)
[2019-03-29] MEDS ORDERED: Ketorolac 30 MG/ML SDV IVPUSH ONE (13:19)
== END 2019-03-29 13:55 | disposition home or self-care (01) ==
LOC: JD.ED 11:56
DX: R10.11 Right upper quadrant pain (principal); R10.13 Epigastric pain; R11.2 Nausea with vomiting, unspecified; K21.9 Gastro-esophageal reflux disease without esophagitis; E66.9 Obesity, unspecified; Z79.899 Other long term (current) drug therapy; Z90.49 Acquired absence of other specified parts of digestive tract; Z91.09 Other allergy status, other than to drugs and biological substances
CPT/HCPCS: 36415; 80053; 83690; 85007; 85027; 96361; 96374; 96375; 99284; J1170; J1885; J2405; J2765; J7040

== ENCOUNTER 2019-04-26 12:27 | Emergency (ER) | payer MEDICAID ==
[2019-04-26 12:39] VITALS: BP 164/119
[2019-04-26] MEDS ORDERED: Sodium Chloride 0.9% 1,000 ML IV STA (13:14)
[2019-04-26] MEDS ORDERED: Sodium Chloride 0.9% 10 ML Syringe FLUSH PRN (13:14)
[2019-04-26] MEDS ORDERED: Ondansetron 4 MG/2 ML SDV IVPUSH ONE (13:14)
[2019-04-26] MEDS ORDERED: HYDROmorphone 1 MG/ML Syringe IVPUSH ONE ×3 (13:15→15:35)
[2019-04-26] MEDS ORDERED: Promethazine 25 MG/ML SDV IM ONE (15:35)
--- NOTE | 2019-04-26 17:00 | EDM.PDOC ---
ED HPI GENERAL MEDICAL PROBLEM - General Chief Complaint: Abdominal Pain Stated Complaint: ABDOMINAL PAIN Time Seen by Provider: 04/26/19 12:45 Source of Information: Reports: Patient History Limitations: Reports: No Limitations - History of Present Illness INITIAL COMMENTS - FREE TEXT/NARRATIVE: The patient presents with abdominal pain, nausea and vomiting. This started a couple days ago. He has a history of chronic pancreatitis and he feels like some caffeine may have triggered this attack. He has no fever, chills, cough, congestion, runny nose, chest pain, shortness of breath, or diarrhea. He did not drink any alcohol. Onset: Gradual Duration: Day(s): Location: Reports: Abdomen Quality: Reports: Sharp Severity: Severe Improves with: Reports: None Worsens with: Reports: None Associated Symptoms: Reports: Nausea/Vomiting. Denies: Chest Pain, Cough, Fever /Chills, Headaches, Shortness of Breath Right Upper Abdomen Pain Score (Numeric/FACES): 10 - Related Data Allergies Allergy/AdvReac Type Severity Reaction Status Date / Time cat dander Allergy Itching Verified 04/26/19 12:39 Home Meds: Home Meds Omeprazole [Prilosec] 20 mg PO BID 04/05/14 [History] Amylase/Lipase/Protease [Creon DR 24,000 Unit] 5 cap PO TIDMEALS 08/02/14 [ History] HYDROmorphone [Dilaudid] 2 mg PO BID PRN 10/15/18 [History] Ondansetron [Zofran ODT] 8 mg PO BID PRN 12/18/18 [History] HYDROmorphone [Dilaudid] 2 mg PO Q12H PRN #24 tab 03/03/19 [Rx] Ondansetron HCl [Zofran] 8 mg PO Q6H PRN #20 tablet 03/03/19 [Rx] oxyCODONE ER [OxyCONTIN] 10 mg PO Q12H PRN 03/29/19 [History] oxyCODONE HCl/Acetaminophen [Percocet 5-325 mg Tablet] 1 - 2 each PO Q6HR PRN # 20 tablet 04/26/19 [Rx] Past Medical History - Past Health History Medical/Surgical History: Denies Medical/Surgical History HEENT History: Reports: Impaired Vision Other HEENT History: wears glasses Cardiovascular History: Reports: None Respiratory History: Reports: None Gastrointestinal History: Reports: GERD, Other (See Below) Other Gastrointestinal History: Stents placed in pancrease, sphinctor of asad surgery . 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 Stone was removed last summer in May-Jun Hematologic History: Reports: None Immunologic History: Reports: None Oncologic (Cancer) History: Reports: None Dermatologic History: Reports: Other (See Below) Other Dermatologic History: allergic to cats - Infectious Disease History Infectious Disease History: Reports: Chicken Pox, Shingles - Past Surgical History Head Surgeries/Procedures: Reports: None GI Surgical History: Reports: Cholecystectomy, EGD, ERCP Social & Family History - Family History Family Medical History: Noncontributory Cardiac: Reports: CAD, Stent Respiratory: Reports: None GI: Reports: None Neurological: Reports: CVA Oncologic: Reports: Breast, Other (See Below) Other Oncologic Family History: STOMACH - Tobacco Use Smoking Status *Q: Current Status Unknown - Caffeine Use Caffeine Use: Reports: None - Living Situation & Occupation Living situation: Reports: Single, Alone 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[employer]) [facility] - Review of Systems Review Of Systems: See Below Constitutional: Reports: No Symptoms HEENT: Reports: No Symptoms Respiratory: Reports: No Symptoms Cardiovascular: Reports: No Symptoms Endocrine: Reports: No Symptoms GI/Abdominal: Reports: Abdominal Pain, Nausea, Vomiting : Reports: No Symptoms Musculoskeletal: Reports: No Symptoms ED EXAM, GI/ABD - Physical Exam Exam: See Below Exam Limited By: No Limitations General Appearance: Alert, Moderate Distress Ears: Normal External Exam Nose: Normal Inspection Head: Atraumatic, Normocephalic Neck: Normal Inspection Respiratory/Chest: No Respiratory Distress, Lungs Clear, Normal Breath Sounds Cardiovascular: Regular Rate, Rhythm, No Edema, No Murmur GI/Abdominal Exam: Soft, Non-Tender, No Organomegaly, No Mass Back Exam: Normal Inspection Extremities: Normal Inspection Course - Vital Signs Last Recorded V/S: Last Vital Signs Temp 97.1 F 04/26/19 12:36 Pulse 126 H 04/26/19 12:36 Resp 20 04/26/19 12:36 BP 164/119 H 04/26/19 12:36 Pulse Ox 98 04/26/19 12:36 - Orders/Labs/Meds Orders: Active Orders 24 hr Category Date Time Status Peripheral IV Care [RC] . DIRECTED Care 04/26/19 13:15 Active Sodium Chloride 0.9% [Saline Flush] Med 04/26/19 13:14 Active 10 ml FLUSH ASDIRECTED PRN ED Antiemetic Medication Reflex [OM.PC] Stat Oth 04/26/19 13:15 Ordered Peripheral IV Insertion Adult [OM.PC] Stat Oth 04/26/19 13:14 Ordered Medication Orders Sodium Chloride (Saline Flush) 10 ml FLUSH ASDIRECTED PRN PRN Reason: Keep Vein Open Last Admin: 04/26/19 13:23 Dose: 10 ml Labs: Laboratory Tests 04/26/19 04/26/19 Range/Units 12:44 12:44 WBC 15.63 H (4.23-9.07) K/mm3 RBC 5.29 (4.63-6.08) M/mm3 Hgb 15.5 (13.7-17.5) gm/L Hct 46.6 (40.1-51.0) % MCV 88.1 (79.0-92.2) fl MCH 29.3 (25.7-32.2) pg MCHC 33.3 (32.2-35.5) g/dl RDW Std Deviation 43.6 (35.1-43.9) fL Plt Count 244 (163-337) K/mm3 MPV 11.8 (9.4-12.3) fl Neut % (Auto) 74.6 H (34.0-67.9) % Lymph % (Auto) 17.4 L (21.8-53.1) % Sawyer % (Auto) 5.8 (5.3-12.2) % Eos % (Auto) 1.6 (0.8-7.0) Baso % (Auto) 0.4 (0.1-1.2) % Neut # (Auto) 11.65 H (1.78-5.38) K/mm3 Lymph # (Auto) 2.72 (1.32-3.57) K/mm3 Sawyer # (Auto) 0.91 H (0.30-0.82) K/mm3 Eos # (Auto) 0.25 (0.04-0.54) K/mm3 Baso # (Auto) 0.07 (0.01-0.08) K/mm3 Sodium 143 (136-145) mEq/L Potassium 3.8 (3.5-5.1) mEq/L Chloride 106 (98-107) mEq/L Carbon Dioxide 23 (21-32) mEq/L Anion Gap 17.8 H (5-15) BUN 11 (7-18) mg/dL Creatinine 1.0 (0.7-1.3) mg/dL Est Cr Clr Drug Dosing 118.74 mL/min Estimated GFR (MDRD) > 60 (>60) mL/min BUN/Creatinine Ratio 11.0 L (14-18) Glucose 128 H (74-106) mg/dL Calcium 9.3 (8.5-10.1) mg/dL Total Bilirubin 0.7 (0.2-1.0) mg/dL AST 15 (15-37) U/L ALT 24 (16-63) U/L Alkaline Phosphatase 102 (46-116) U/L Total Protein 7.9 (6.4-8.2) g/dl Albumin 4.3 (3.4-5.0) g/dl Globulin 3.6 gm/dL Albumin/Globulin Ratio 1.2 (1-2) Lipase 177 (73-393) U/L Meds: Medications Generic Name Dose Route Start Last Admin Trade Name Freq PRN Reason Stop Dose Admin Sodium Chloride 10 ml 04/26/19 13:14 04/26/19 13:23 Saline Flush FLUSH 10 ml ASDIRECTED PRN Administration Keep Vein Open Discontinued Medications Generic Name Dose Route Start Last Admin Trade Name Freq PRN Reason Stop Dose Admin Hydromorphone HCl 1 mg 04/26/19 13:15 04/26/19 13:22 Dilaudid IVPUSH 04/26/19 13:16 1 mg ONETIME ONE Administration Hydromorphone HCl 1 mg 04/26/19 14:27 04/26/19 14:38 Dilaudid IVPUSH 04/26/19 14:28 1 mg ONETIME ONE Administration Hydromorphone HCl 1 mg 04/26/19 15:35 04/26/19 16:28 Dilaudid IVPUSH 04/26/19 15:36 1 mg ONETIME ONE Administration Sodium Chloride 1,000 mls @ 1,000 mls/hr 04/26/19 13:14 04/26/19 13:22 Normal Saline IV 04/26/19 14:13 1,000 mls/hr .BOLUS STA Administration Ondansetron HCl 4 mg 04/26/19 13:14 04/26/19 13:22 Zofran IVPUSH 04/26/19 13:15 4 mg ONETIME ONE Administration Promethazine HCl 25 mg 04/26/19 15:35 04/26/19 16:29 Phenergan IM 04/26/19 15:36 25 mg ONETIME ONE Administration - Re-Assessments/Exams Free Text/Narrative Re-Assessment/Exam: 04/26/19 16:58 I ordered an IV NS 1L bolus, zofran 4mg IV, dilaudid 1mg IV and labs. His WBC was elevated at 15.63. His anion gap was elevated at 17.8. His glucose was elevated at 128. His lipase is normal at 177. He needed a couple doses of dilaudid and some phenergan. 04/26/19 17:07 He feels better. I will discharge him home. Departure - Departure Time of Disposition: 17:10 Disposition: Home, Self-Care 01 Condition: Good Clinical Impression: Chronic recurrent pancreatitis Abdominal pain Qualifiers: Abdominal location: right upper quadrant Qualified Code(s): R10.11 - Right upper quadrant pain Vomiting Qualifiers: Vomiting type: unspecified Vomiting Intractability: non-intractable Nausea presence: with nausea Qualified Code(s): R11.2 - Nausea with vomiting, unspecified - Discharge Information *PRESCRIPTION DRUG MONITORING PROGRAM REVIEWED*: No *COPY OF PRESCRIPTION DRUG MONITORING REPORT IN PATIENT MIKIE: No Prescriptions: oxyCODONE HCl/Acetaminophen [Percocet 5-325 mg Tablet] 1 - 2 each PO Q6HR PRN # 20 tablet PRN Reason: Pain Referrals: Artie Rogers MD [Primary Care Provider] - 1 Week Forms: ED Department Discharge Additional Instructions: Take your medication as prescribed. Please return if you are worse. - My Orders Last 24 Hours: My Active Orders 04/26/19 13:14 Sodium Chloride 0.9% [Saline Flush] 10 ml FLUSH ASDIRECTED PRN Peripheral IV Insertion Adult [OM.PC] Stat 04/26/19 13:15 Peripheral IV Care [RC] . DIRECTED ED Antiemetic Medication Reflex [OM.PC] Stat - Assessment/Plan Last 24 Hours: My Active Orders 04/26/19 13:14 Sodium Chloride 0.9% [Saline Flush] 10 ml FLUSH ASDIRECTED PRN Peripheral IV Insertion Adult [OM.PC] Stat 04/26/19 13:15 Peripheral IV Care [RC] . DIRECTED ED Antiemetic Medication Reflex [OM.PC] Stat
== END 2019-04-26 17:17 | disposition home or self-care (01) ==
LOC: JD.ED 12:27
DX: K86.1 Other chronic pancreatitis (principal); E66.9 Obesity, unspecified; K21.9 Gastro-esophageal reflux disease without esophagitis; Z90.49 Acquired absence of other specified parts of digestive tract; Z91.09 Other allergy status, other than to drugs and biological substances
CPT/HCPCS: 36415; 80053; 83690; 85025; 96361; 96372; 96374; 96375; 96376; 99284; J1170; J2405; J2550; J7040

== ENCOUNTER 2019-07-08 08:50 | Emergency (ER) | payer MEDICAID ==
[2019-07-08 09:09] VITALS: BP 129/99
[2019-07-08] MEDS ORDERED: Sodium Chloride 0.9% 10 ML Syringe FLUSH PRN (09:10)
[2019-07-08] MEDS ORDERED: HYDROmorphone 1 MG/ML Syringe IVPUSH ONE ×2 (09:12→10:42)
[2019-07-08] MEDS ORDERED: Promethazine 25 MG/ML SDV IM ONE (09:13)
[2019-07-08] MEDS ORDERED: LORazepam 2 MG/ML SDV IVPUSH ONE (09:58)
[2019-07-08] MEDS ORDERED: Sodium Chloride 0.9% 1,000 ML IV ONE (11:06)
[2019-07-08] MEDS ORDERED: fentaNYL 100 MCG/2 ML SDV IVPUSH ONE (11:47)
--- NOTE | 2019-07-08 11:53 | EDM.PDOC ---
ED HPI GENERAL MEDICAL PROBLEM - General Chief Complaint: Abdominal Pain Stated Complaint: ABDOMINAL PAIN Time Seen by Provider: 07/08/19 09:05 Source of Information: Reports: Patient History Limitations: Reports: No Limitations - History of Present Illness INITIAL COMMENTS - FREE TEXT/NARRATIVE: The patient presents with generalized abdominal cramps, nausea and vomiting for a few days. He has a chronic history of this. He has been seen in [place] for this. 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 He feels he may have to go back there soon. He sees Dr Rodríguez in the clinic. He has no fever, chills, cough, chest pain or shortness of breath. He has no dysuria or hematuria. He has no diarrhea. Onset: Gradual Duration: Day(s): Location: Reports: Abdomen Quality: Reports: Sharp Severity: Moderate Improves with: Reports: None Worsens with: Reports: None Associated Symptoms: Reports: Nausea/Vomiting. Denies: Chest Pain, Fever/Chills , Headaches, Shortness of Breath Abdominal Pain Score (Numeric/FACES): 7 - Related Data Allergies Allergy/AdvReac Type Severity Reaction Status Date / Time cat dander Allergy Itching Verified 07/08/19 09:09 Home Meds: Home Meds Omeprazole [Prilosec] 20 mg PO BID 04/05/14 [History] Amylase/Lipase/Protease [[place] 24,000 Unit] 5 cap PO TIDMEALS 08/02/14 [ History] Ondansetron [Zofran ODT] 8 mg PO BID PRN 12/18/18 [History] HYDROmorphone [Dilaudid] 2 mg PO Q12H PRN #24 tab 03/03/19 [Rx] oxyCODONE ER [OxyCONTIN] 10 mg PO Q12H PRN 03/29/19 [History] oxyCODONE ER [OxyCONTIN] 10 mg PO Q12H PRN #20 tab.er 07/08/19 [Rx] Past Medical History - Past Health History Medical/Surgical History: Denies Medical/Surgical History HEENT History: Reports: Impaired Vision Other HEENT History: wears glasses Cardiovascular History: Reports: None Respiratory History: Reports: None Gastrointestinal History: Reports: GERD, Other (See Below) Other Gastrointestinal History: Stents placed in pancrease, sphinctor of asad surgery . 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 Stone was removed last summer in May-Jun Hematologic History: Reports: None Immunologic History: Reports: None Oncologic (Cancer) History: Reports: None Dermatologic History: Reports: Other (See Below) Other Dermatologic History: allergic to cats - Infectious Disease History Infectious Disease History: Reports: Chicken Pox, Shingles - Past Surgical History Head Surgeries/Procedures: Reports: None GI Surgical History: Reports: Cholecystectomy, EGD, ERCP Social & Family History - Family History Family Medical History: Noncontributory Cardiac: Reports: CAD, Stent Respiratory: Reports: None GI: Reports: None Neurological: Reports: CVA Oncologic: Reports: Breast, Other (See Below) Other Oncologic Family History: STOMACH - Tobacco Use Smoking Status *Q: Current Every Day Smoker Years of Tobacco use: 15 Packs/Tins Daily: 0.4 - Caffeine Use Caffeine Use: Reports: None - Recreational Drug Use Recreational Drug Use: Yes Drug Use in Last 12 Months: Yes Recreational Drug Type: Reports: Marijuana/Hashish Recreational Drug Use Frequency: Weekly - Living Situation & Occupation Living situation: Reports: Single, Alone 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[employer]) ED ROS GENERAL - Review of Systems Review Of Systems: See Below Constitutional: Reports: No Symptoms HEENT: Reports: No Symptoms Respiratory: Reports: No Symptoms Cardiovascular: Reports: No Symptoms Endocrine: Reports: No Symptoms GI/Abdominal: Reports: Abdominal Pain, Nausea, Vomiting. Denies: Diarrhea : Reports: No Symptoms Musculoskeletal: Reports: No Symptoms ED EXAM, GI/ABD - Physical Exam Exam: See Below Exam Limited By: No Limitations General Appearance: Alert, No Apparent Distress Ears: Normal External Exam Nose: Normal Inspection Head: Atraumatic, Normocephalic Neck: Normal Inspection Respiratory/Chest: No Respiratory Distress, Lungs Clear, Normal Breath Sounds Cardiovascular: Regular Rate, Rhythm, No Edema, No Murmur GI/Abdominal Exam: Soft, No Organomegaly, No Mass, Tender (Moderate generalized tenderness) Course - Vital Signs Last Recorded V/S: Last Vital Signs Temp 97.7 F 07/08/19 09:05 Pulse 100 07/08/19 09:05 Resp 16 07/08/19 09:05 BP 129/99 H 07/08/19 09:05 Pulse Ox 98 07/08/19 09:05 - Orders/Labs/Meds Orders: Active Orders 24 hr Category Date Time Status Peripheral IV Care [RC] . DIRECTED Care 07/08/19 09:12 Active Sodium Chloride 0.9% [Normal Saline] 1,000 ml Med 07/08/19 11:06 Active IV ONETIME Sodium Chloride 0.9% [Saline Flush] Med 07/08/19 09:10 Active 10 ml FLUSH ASDIRECTED PRN Peripheral IV Insertion Adult [OM.PC] Stat Oth 07/08/19 09:10 Ordered Medication Orders Sodium Chloride (Normal Saline) 1,000 mls @ 1,000 mls/hr IV ONETIME ONE Stop: 07/08/19 12:05 Last Admin: 07/08/19 11:12 Dose: 1,000 mls/hr Sodium Chloride (Saline Flush) 10 ml FLUSH ASDIRECTED PRN PRN Reason: Keep Vein Open Last Admin: 07/08/19 09:26 Dose: 10 ml Labs: Laboratory Tests 07/08/19 07/08/19 Range/Units 09:45 09:45 WBC 8.88 (4.23-9.07) K/mm3 RBC 5.11 (4.63-6.08) M/mm3 Hgb 14.9 (13.7-17.5) gm/L Hct 44.5 (40.1-51.0) % MCV 87.1 (79.0-92.2) fl MCH 29.2 (25.7-32.2) pg MCHC 33.5 (32.2-35.5) g/dl RDW Std Deviation 42.8 (35.1-43.9) fL Plt Count 252 (163-337) K/mm3 MPV 11.2 (9.4-12.3) fl Neut % (Auto) 66.6 (34.0-67.9) % Lymph % (Auto) 24.2 (21.8-53.1) % Taylor % (Auto) 6.8 (5.3-12.2) % Eos % (Auto) 2.0 (0.8-7.0) Baso % (Auto) 0.3 (0.1-1.2) % Neut # (Auto) 5.91 H (1.78-5.38) K/mm3 Lymph # (Auto) 2.15 (1.32-3.57) K/mm3 Taylor # (Auto) 0.60 (0.30-0.82) K/mm3 Eos # (Auto) 0.18 (0.04-0.54) K/mm3 Baso # (Auto) 0.03 (0.01-0.08) K/mm3 Sodium 139 (136-145) mEq/L Potassium 3.7 (3.5-5.1) mEq/L Chloride 102 (98-107) mEq/L Carbon Dioxide 25 (21-32) mEq/L Anion Gap 15.7 H (5-15) BUN 8 (7-18) mg/dL Creatinine 0.7 (0.7-1.3) mg/dL Est Cr Clr Drug Dosing TNP Estimated GFR (MDRD) > 60 (>60) mL/min BUN/Creatinine Ratio 11.4 L (14-18) Glucose 113 H (74-106) mg/dL Calcium 9.7 (8.5-10.1) mg/dL Total Bilirubin 0.6 (0.2-1.0) mg/dL AST 28 (15-37) U/L ALT 49 (16-63) U/L Alkaline Phosphatase 97 (46-116) U/L Total Protein 8.1 (6.4-8.2) g/dl Albumin 3.9 (3.4-5.0) g/dl Globulin 4.2 gm/dL Albumin/Globulin Ratio 0.9 L (1-2) Lipase 134 (73-393) U/L Meds: Medications Generic Name Dose Route Start Last Admin Trade Name Freq PRN Reason Stop Dose Admin Sodium Chloride 1,000 mls @ 1,000 mls/hr 07/08/19 11:06 07/08/19 11:12 Normal Saline IV 07/08/19 12:05 1,000 mls/hr ONETIME ONE Administration Sodium Chloride 10 ml 07/08/19 09:10 07/08/19 09:26 Saline Flush FLUSH 10 ml ASDIRECTED PRN Administration Keep Vein Open Discontinued Medications Generic Name Dose Route Start Last Admin Trade Name Freq PRN Reason Stop Dose Admin Fentanyl 100 mcg 07/08/19 11:47 Sublimaze IVPUSH 07/08/19 11:48 ONETIME ONE Hydromorphone HCl 1 mg 07/08/19 09:12 07/08/19 09:24 Dilaudid IVPUSH 07/08/19 09:13 1 mg ONETIME ONE Administration Hydromorphone HCl 1 mg 07/08/19 10:42 07/08/19 11:02 Dilaudid IVPUSH 07/08/19 10:43 1 mg ONETIME ONE Administration Lorazepam 1 mg 07/08/19 09:58 07/08/19 10:26 Ativan IVPUSH 07/08/19 09:59 1 mg ONETIME ONE Administration Promethazine HCl 25 mg 07/08/19 09:13 07/08/19 09:22 Phenergan IM 07/08/19 09:14 25 mg ONETIME ONE Administration - Re-Assessments/Exams Free Text/Narrative Re-Assessment/Exam: 07/08/19 11:55 I ordered an IV NS 1L bolus, dilaudid 1mg IV, phenergan 25mg IM, and labs. His CBC looks good. His anion gap was elevated at 15.7. His lipase was normal. He had more pain so I ordered some ativan 1mg IV and dilaudid. He is feeling better. I have ordered more fentanyl and I will give him a prescription for some oxycodone. Departure - Departure Time of Disposition: 12:00 Disposition: Home, Self-Care 01 Condition: Good Clinical Impression: Relapsing chronic pancreatitis Abdominal pain Qualifiers: Abdominal location: right upper quadrant Qualified Code(s): R10.11 - Right upper quadrant pain Vomiting Qualifiers: Vomiting type: unspecified Vomiting Intractability: non-intractable Nausea presence: with nausea Qualified Code(s): R11.2 - Nausea with vomiting, unspecified - Discharge Information *PRESCRIPTION DRUG MONITORING PROGRAM REVIEWED*: No *COPY OF PRESCRIPTION DRUG MONITORING REPORT IN PATIENT [place]: No Prescriptions: oxyCODONE ER [OxyCONTIN] 10 mg PO Q12H PRN #20 tab.er PRN Reason: Pain Referrals: Artie Rogers MD [Primary Care Provider] - 1 Week Additional Instructions: Take your medications as prescribed. Follow with your doctor in 1 week. - My Orders Last 24 Hours: My Active Orders 07/08/19 09:10 Sodium Chloride 0.9% [Saline Flush] 10 ml FLUSH ASDIRECTED PRN Peripheral IV Insertion Adult [OM.PC] Stat 07/08/19 09:12 Peripheral IV Care [RC] . DIRECTED 07/08/19 11:06 Sodium Chloride 0.9% [Normal Saline] 1,000 ml IV ONETIME - Assessment/Plan Last 24 Hours: My Active Orders 07/08/19 09:10 Sodium Chloride 0.9% [Saline Flush] 10 ml FLUSH ASDIRECTED PRN Peripheral IV Insertion Adult [OM.PC] Stat 07/08/19 09:12 Peripheral IV Care [RC] . DIRECTED 07/08/19 11:06 Sodium Chloride 0.9% [Normal Saline] 1,000 ml IV ONETIME
== END 2019-07-08 13:20 | disposition home or self-care (01) ==
LOC: JD.ED 08:50
DX: K86.1 Other chronic pancreatitis (principal); K21.9 Gastro-esophageal reflux disease without esophagitis; E66.9 Obesity, unspecified; F17.210 Nicotine dependence, cigarettes, uncomplicated; Z90.49 Acquired absence of other specified parts of digestive tract; Z79.899 Other long term (current) drug therapy; Z91.048 Other nonmedicinal substance allergy status; Z68.30 Body mass index [BMI] 30.0-30.9, adult
CPT/HCPCS: 36415; 80053; 83690; 85025; 96361; 96372; 96374; 96375; 96376; 99284; J1170; J2060; J2550; J3010; J7040

== ENCOUNTER 2019-07-11 07:17 | Emergency (ER) | payer MEDICAID ==
[2019-07-11] MEDS ORDERED: Lactated Ringers 1,000 ML IV ONE (07:36)
[2019-07-11] MEDS ORDERED: Ondansetron 4 MG/2 ML SDV IVPUSH ONE (07:36)
[2019-07-11] MEDS ORDERED: HYDROmorphone 0.5 MG/0.5 ML Syringe IVPUSH ONE (07:37)
--- NOTE | 2019-07-11 07:37 | EDM.PDOC ---
ED HPI GENERAL MEDICAL PROBLEM - General Chief Complaint: Abdominal Pain Stated Complaint: ABDOMINAL PAIN Time Seen by Provider: 07/11/19 07:30 - History of Present Illness INITIAL COMMENTS - FREE TEXT/NARRATIVE: 33-year-old male presents emergency room with abdominal pain. This pain started early this morning. The patient is a habitual marijuana user. He has frequent bouts of abdominal pain and he is seen in this emergency room many times for this. This is a typical pain pattern that he's developed mostly midepigastric right upper quadrant. He has some associated nausea with this he thinks he can throw up but this is been minimal thus far. No fevers or chills. The patient states he has follow-up next month and [place] with his gastroenterology specialist. 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 The patient has his routine medications at home and has been using them as directed. Right Abdomen Pain Score (Numeric/FACES): 8 - Related Data Allergies Allergy/AdvReac Type Severity Reaction Status Date / Time cat dander Allergy Itching Verified 07/11/19 07:28 Home Meds: Home Meds Omeprazole [Prilosec] 20 mg PO BID 04/05/14 [History] Amylase/Lipase/Protease [Creon DR 24,000 Unit] 5 cap PO ASDIRECTED 08/02/14 [ History] Ondansetron [Zofran ODT] 8 mg PO BID PRN 12/18/18 [History] HYDROmorphone [Dilaudid] 2 mg PO Q12H PRN #24 tab 03/03/19 [Rx] oxyCODONE HCl [Oxycodone HCl] 10 mg PO Q12H PRN #20 tablet 07/08/19 [Rx] Past Medical History - Past Health History Medical/Surgical History: Denies Medical/Surgical History HEENT History: Reports: Impaired Vision Other HEENT History: wears glasses Cardiovascular History: Reports: None Respiratory History: Reports: None Gastrointestinal History: Reports: GERD, Other (See Below) Other Gastrointestinal History: Stents placed in pancrease, sphinctor of asad surgery . 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 Stone was removed last summer in May-Jun Hematologic History: Reports: None Immunologic History: Reports: None Oncologic (Cancer) History: Reports: None Dermatologic History: Reports: Other (See Below) Other Dermatologic History: allergic to cats - Infectious Disease History Infectious Disease History: Reports: Chicken Pox, Shingles - Past Surgical History Head Surgeries/Procedures: Reports: None GI Surgical History: Reports: Cholecystectomy, EGD, ERCP Social & Family History - Family History Family Medical History: Noncontributory Cardiac: Reports: CAD, Stent Respiratory: Reports: None GI: Reports: None Neurological: Reports: CVA Oncologic: Reports: Breast, Other (See Below) Other Oncologic Family History: STOMACH - Caffeine Use Caffeine Use: Reports: None - Living Situation & Occupation Living situation: Reports: Single, Alone 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[employer]) ED ROS GENERAL - Review of Systems Review Of Systems: See Below Constitutional: Reports: No Symptoms Respiratory: Reports: No Symptoms Cardiovascular: Reports: No Symptoms GI/Abdominal: Reports: Abdominal Pain, Nausea, Vomiting. Denies: Constipation, Diarrhea : Reports: No Symptoms Neurological: Reports: No Symptoms ED EXAM, GI/ABD - Physical Exam Exam: See Below Exam Limited By: No Limitations General Appearance: Mild Distress (From the pain) Head: Atraumatic, Normocephalic Neck: Normal Inspection, Supple, Non-Tender, Full Range of Motion. No: Lymphadenopathy (L), Lymphadenopathy (R) Respiratory/Chest: No Respiratory Distress, Lungs Clear, Normal Breath Sounds Cardiovascular: Regular Rate, Rhythm, No Edema, No Murmur GI/Abdominal Exam: Normal Bowel Sounds, Soft, No Mass, Other (He has mostly right upper quadrant discomfort. No right lower quadrant discomfort no left- sided discomfort no suprapubic discomfort this is worsened with palpation.). No : Distended, Guarding, Rigid, Rebound Extremities: Normal Inspection, No Pedal Edema Neurological: Alert, Oriented, Normal Cognition Course - Vital Signs Last Recorded V/S: Last Vital Signs Temp 36.4 C 07/11/19 07:20 Pulse 98 07/11/19 07:20 Resp 20 07/11/19 07:20 BP 116/82 07/11/19 07:20 Pulse Ox 99 07/11/19 07:20 - Orders/Labs/Meds Labs: Laboratory Tests 07/11/19 07/11/19 07/11/19 Range/Units 07:40 07:45 07:45 WBC 10.14 H (4.23-9.07) K/mm3 RBC 5.29 (4.63-6.08) M/mm3 Hgb 15.4 (13.7-17.5) gm/L Hct 45.4 (40.1-51.0) % MCV 85.8 (79.0-92.2) fl MCH 29.1 (25.7-32.2) pg MCHC 33.9 (32.2-35.5) g/dl RDW Std Deviation 42.2 (35.1-43.9) fL Plt Count 274 (163-337) K/mm3 MPV 11.5 (9.4-12.3) fl Neutrophils % (Manual) 69 H (40-60) % Band Neutrophils % 0 (0-10) % Lymphocytes % (Manual) 26 (20-40) % Atypical Lymphs % 0 % Monocytes % (Manual) 2 (2-10) % Eosinophils % (Manual) 3 (0.8-7.0) % Basophils % (Manual) 0 L (0.2-1.2) Platelet Estimate Adequate RBC Morph Comment Normal Sodium 142 (136-145) mEq/L Potassium 3.7 (3.5-5.1) mEq/L Chloride 104 (98-107) mEq/L Carbon Dioxide 28 (21-32) mEq/L Anion Gap 13.7 (5-15) BUN 10 (7-18) mg/dL Creatinine 0.9 (0.7-1.3) mg/dL Est Cr Clr Drug Dosing 135.73 mL/min Estimated GFR (MDRD) > 60 (>60) mL/min BUN/Creatinine Ratio 11.1 L (14-18) Glucose 135 H (74-106) mg/dL Calcium 9.3 (8.5-10.1) mg/dL Total Bilirubin 0.6 (0.2-1.0) mg/dL Direct Bilirubin 0.10 (0.0-0.2) mg/dl Indirect Bilirubin 0.50 AST 14 L (15-37) U/L ALT 37 (16-63) U/L Alkaline Phosphatase 94 (46-116) U/L Total Protein 8.3 H (6.4-8.2) g/dl Albumin 4.2 (3.4-5.0) g/dl Globulin 4.1 gm/dL Albumin/Globulin Ratio 1.0 (1-2) Lipase (73-393) U/L Urine Color P[place] H (Yellow) Urine Appearance Slt cloudy H (Clear) Urine pH 6.0 (5.0-8.0) Ur Specific Cornish 1.025 (1.005-1.030) Urine Protein 1+ H (Negative) Urine Glucose (UA) Negative (Negative) Urine Ketones 1+ H (Negative) Urine Occult Blood Negative (Negative) Urine Nitrite Negative (Negative) Urine Bilirubin 1+ H (Negative) Urine Urobilinogen 1.0 (0.2-1.0) Ur Leukocyte Esterase Negative (Negative) Urine RBC 0-5 (0-5) /hpf Urine WBC 0-5 (0-5) /hpf Ur Epithelial Cells 0-5 (0-5) /hpf Urine Bacteria Few (FEW) /hpf Urine Mucus Few (FEW) /hpf 07/11/19 Range/Units 07:45 WBC (4.23-9.07) K/mm3 RBC (4.63-6.08) M/mm3 Hgb (13.7-17.5) gm/L Hct (40.1-51.0) % MCV (79.0-92.2) fl MCH (25.7-32.2) pg MCHC (32.2-35.5) g/dl RDW Std Deviation (35.1-43.9) fL Plt Count (163-337) K/mm3 MPV (9.4-12.3) fl Neutrophils % (Manual) (40-60) % Band Neutrophils % (0-10) % Lymphocytes % (Manual) (20-40) % Atypical Lymphs % % Monocytes % (Manual) (2-10) % Eosinophils % (Manual) (0.8-7.0) % Basophils % (Manual) (0.2-1.2) Platelet Estimate RBC Morph Comment Sodium (136-145) mEq/L Potassium (3.5-5.1) mEq/L Chloride (98-107) mEq/L Carbon Dioxide (21-32) mEq/L Anion Gap (5-15) BUN (7-18) mg/dL Creatinine (0.7-1.3) mg/dL Est Cr Clr Drug Dosing mL/min Estimated GFR (MDRD) (>60) mL/min BUN/Creatinine Ratio (14-18) Glucose (74-106) mg/dL Calcium (8.5-10.1) mg/dL Total Bilirubin (0.2-1.0) mg/dL Direct Bilirubin (0.0-0.2) mg/dl Indirect Bilirubin AST (15-37) U/L ALT (16-63) U/L Alkaline Phosphatase (46-116) U/L Total Protein (6.4-8.2) g/dl Albumin (3.4-5.0) g/dl Globulin gm/dL Albumin/Globulin Ratio (1-2) Lipase 94 (73-393) U/L Urine Color (Yellow) Urine Appearance (Clear) Urine pH (5.0-8.0) Ur Specific Cornish (1.005-1.030) Urine Protein (Negative) Urine Glucose (UA) (Negative) Urine Ketones (Negative) Urine Occult Blood (Negative) Urine Nitrite (Negative) Urine Bilirubin (Negative) Urine Urobilinogen (0.2-1.0) Ur Leukocyte Esterase (Negative) Urine RBC (0-5) /hpf Urine WBC (0-5) /hpf Ur Epithelial Cells (0-5) /hpf Urine Bacteria (FEW) /hpf Urine Mucus (FEW) /hpf Meds: Medications Discontinued Medications Generic Name Dose Route Start Last Admin Trade Name Freq PRN Reason Stop Dose Admin Fentanyl 100 mcg 07/11/19 08:10 07/11/19 08:37 Sublimaze IVPUSH 07/11/19 08:11 100 mcg ONETIME ONE Administration Fentanyl 100 mcg 07/11/19 09:59 Sublimaze IVPUSH 07/11/19 10:00 ONETIME ONE Hydromorphone HCl 0.5 mg 07/11/19 07:37 07/11/19 07:47 Dilaudid IVPUSH 07/11/19 07:38 0.5 mg ONETIME ONE Administration Lactated Ringer's 1,000 mls @ 999 mls/hr 07/11/19 07:36 07/11/19 07:52 Ringers, Lactated IV 07/11/19 08:36 999 mls/hr .BOLUS ONE Administration Lorazepam 1 mg 07/11/19 08:11 07/11/19 08:35 Ativan IVPUSH 07/11/19 08:12 1 mg ONETIME ONE Administration Ondansetron HCl 4 mg 07/11/19 07:36 07/11/19 07:50 Zofran IVPUSH 07/11/19 07:37 4 mg ONETIME ONE Administration - Re-Assessments/Exams Free Text/Narrative Re-Assessment/Exam: 07/11/19 10:05 Patient's receive 0.5 of Dilaudid 1 mg of Ativan 100 g of fentanyl and was doing pretty well however the pain came back easily get another shot of fentanyl discuss his lab results the possibility of check a CT with the patient. He would like to hold off on the imaging and is comfortable going home after the next shot of fentanyl. He agrees to take a cab home. Departure - Departure Time of Disposition: 10:06 Disposition: Home, Self-Care 01 Clinical Impression: Abdominal pain, chronic, generalized - Discharge Information Referrals: Artie Rogers MD [Primary Care Provider] - Forms: ED Department Discharge Additional Instructions: Return to the emergency room if any questions problems worsening symptoms. Follow-up with your regular doctor early this next week. Use your Zofran at home for the nausea and vomiting and take routine medications as directed. Follow-up with your seed cutter as scheduled.
[2019-07-11] MEDS ORDERED: fentaNYL 100 MCG/2 ML SDV IVPUSH ONE ×2 (08:10→09:59)
[2019-07-11] MEDS ORDERED: LORazepam 2 MG/ML SDV IVPUSH ONE (08:11)
[2019-07-11 10:32] VITALS: BP 132/94
== END 2019-07-11 10:36 | disposition home or self-care (01) ==
LOC: JD.ED 07:17
DX: R10.84 Generalized abdominal pain (principal); G89.29 Other chronic pain; K21.9 Gastro-esophageal reflux disease without esophagitis; Z79.899 Other long term (current) drug therapy; Z91.048 Other nonmedicinal substance allergy status; Z90.49 Acquired absence of other specified parts of digestive tract
CPT/HCPCS: 36415; 80048; 80076; 81001; 83690; 85007; 85027; 96361; 96374; 96375; 96376; 99284; J1170; J2060; J2405; J3010; J7120; 99283

== ENCOUNTER 2019-07-11 14:31 | Emergency (ER) | payer MEDICAID ==
[2019-07-11 16:05] VITALS: BP 136/92
[2019-07-11] MEDS ORDERED: Sodium Chloride 0.9% 10 ML Syringe FLUSH PRN (17:55)
[2019-07-11] MEDS ORDERED: fentaNYL 100 MCG/2 ML SDV IVPUSH ONE ×2 (17:55→19:10)
[2019-07-11] MEDS ORDERED: LORazepam 2 MG/ML SDV IVPUSH ONE (17:55)
[2019-07-11] MEDS ORDERED: Sodium Chloride 0.9% 1,000 ML IV ONE (17:56)
[2019-07-11] MEDS ORDERED: Promethazine 25 MG in Sodium Chloride 0.9% 50 ML IV ONE (17:56)
--- NOTE | 2019-07-11 18:30 | EDM.PDOC ---
ED HPI GENERAL MEDICAL PROBLEM - General Chief Complaint: Gastrointestinal Problem Stated Complaint: VOMITING NOT BETTER Time Seen by Provider: 07/11/19 17:49 Source of Information: Reports: Patient, RN Notes Reviewed History Limitations: Reports: No Limitations - History of Present Illness INITIAL COMMENTS - FREE TEXT/NARRATIVE: Patient is a 33-year-old male who presents to the ED for evaluation of abdominal pain with nausea and vomiting. The patient was just discharged from this ER hours prior to arrival again where he is complaining about the same symptoms. He tried to drink some apple juice when he got home today and this induced nausea, stomach pain and cramps, vomiting. He states he vomited about 5 times at home with 2 episodes of diarrhea again. Right Upper Abdomen Pain Score (Numeric/FACES): 7 - Related Data Allergies Allergy/AdvReac Type Severity Reaction Status Date / Time cat dander Allergy Itching Verified 07/11/19 07:28 Home Meds: Home Meds Omeprazole [Prilosec] 20 mg PO BID 04/05/14 [History] Amylase/Lipase/Protease [Crejosh DR 24,000 Unit] 5 cap PO ASDIRECTED 08/02/14 [ History] Ondansetron [Zofran ODT] 8 mg PO BID PRN 12/18/18 [History] HYDROmorphone [Dilaudid] 2 mg PO Q12H PRN #24 tab 03/03/19 [Rx] oxyCODONE HCl [Oxycodone HCl] 10 mg PO Q12H PRN #20 tablet 07/08/19 [Rx] Past Medical History - Past Health History Medical/Surgical History: Denies Medical/Surgical History HEENT History: Reports: Impaired Vision Other HEENT History: wears glasses Cardiovascular History: Reports: None Respiratory History: Reports: None Gastrointestinal History: Reports: GERD, Other (See Below) Other Gastrointestinal History: Stents placed in pancrease, sphinctor of aasd surgery . 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 Stone was removed last summer in May-Jun Hematologic History: Reports: None Immunologic History: Reports: None Oncologic (Cancer) History: Reports: None Dermatologic History: Reports: Other (See Below) Other Dermatologic History: allergic to cats - Infectious Disease History Infectious Disease History: Reports: Chicken Pox, Shingles - Past Surgical History Head Surgeries/Procedures: Reports: None GI Surgical History: Reports: Cholecystectomy, EGD, ERCP Social & Family History - Family History Family Medical History: Noncontributory Cardiac: Reports: CAD, Stent Respiratory: Reports: None GI: Reports: None Neurological: Reports: CVA Oncologic: Reports: Breast, Other (See Below) Other Oncologic Family History: STOMACH - Tobacco Use Smoking Status *Q: Current Every Day Smoker Years of Tobacco use: 17 Packs/Tins Daily: 0.3 - Caffeine Use Caffeine Use: Reports: None - Recreational Drug Use Recreational Drug Type: Reports: Marijuana/Hashish Other Recreational Drug Type: uses pipe once week - Living Situation & Occupation Living situation: Reports: Single, Alone 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[employer]) ED ROS GENERAL - Review of Systems Review Of Systems: ROS reveals no pertinent complaints other than HPI. Constitutional: Denies: Fever, Chills HEENT: Reports: No Symptoms Respiratory: Reports: No Symptoms Cardiovascular: Reports: No Symptoms Endocrine: Reports: No Symptoms GI/Abdominal: Reports: Abdominal Pain, Diarrhea, Nausea, Vomiting : Reports: No Symptoms Musculoskeletal: Reports: No Symptoms Skin: Reports: No Symptoms Neurological: Reports: No Symptoms Psychiatric: Reports: No Symptoms Hematologic/Lymphatic: Reports: No Symptoms Immunologic: Reports: No Symptoms ED EXAM, GI/ABD - Physical Exam Exam: See Below Exam Limited By: No Limitations General Appearance: Alert, WD/WN, No Apparent Distress (pt is bunched over in bed, in mild distress and pain) Eyes: Bilateral: Normal Appearance Throat/Mouth: Normal Inspection, Normal Lips, Normal Teeth, Normal Gums, Normal Oropharynx, Normal Voice, No Airway Compromise Head: Atraumatic, Normocephalic Neck: Normal Inspection Respiratory/Chest: No Respiratory Distress, Lungs Clear, Normal Breath Sounds, No Accessory Muscle Use, Chest Non-Tender Cardiovascular: Normal Peripheral Pulses, Regular Rate, Rhythm, No Murmur GI/Abdominal Exam: Normal Bowel Sounds, Soft, Non-Tender, No Distention, No Mass Extremities: Normal Inspection, Normal Capillary Refill Neurological: Alert, Oriented, Normal Cognition, No Motor/Sensory Deficits Psychiatric: Normal Affect, Normal Mood Skin Exam: Warm, Dry, Intact, Normal Color, No Rash Course - Vital Signs Last Recorded V/S: Last Vital Signs Temp 99.3 F 07/11/19 16:03 Pulse 87 07/11/19 16:03 Resp 20 07/11/19 16:03 BP 136/92 H 07/11/19 16:03 Pulse Ox 98 07/11/19 16:03 - Orders/Labs/Meds Orders: Active Orders 24 hr Category Date Time Status Peripheral IV Care [RC] . DIRECTED Care 07/11/19 17:55 Active Sodium Chloride 0.9% [Saline Flush] Med 07/11/19 17:55 Active 10 ml FLUSH ASDIRECTED PRN Peripheral IV Insertion Adult [OM.PC] Stat Oth 07/11/19 17:55 Ordered Medication Orders Sodium Chloride (Saline Flush) 10 ml FLUSH ASDIRECTED PRN PRN Reason: Keep Vein Open Last Admin: 07/11/19 18:23 Dose: 10 ml Meds: Medications Generic Name Dose Route Start Last Admin Trade Name Freq PRN Reason Stop Dose Admin Sodium Chloride 10 ml 07/11/19 17:55 07/11/19 18:23 Saline Flush FLUSH 10 ml ASDIRECTED PRN Administration Keep Vein Open Discontinued Medications Generic Name Dose Route Start Last Admin Trade Name Freq PRN Reason Stop Dose Admin Fentanyl 100 mcg 07/11/19 17:55 07/11/19 18:23 Sublimaze IVPUSH 07/11/19 17:56 100 mcg ONETIME ONE Administration Fentanyl 100 mcg 07/11/19 19:10 Sublimaze IVPUSH 07/11/19 19:11 ONETIME ONE Sodium Chloride 1,000 mls @ 999 mls/hr 07/11/19 17:56 07/11/19 18:23 Normal Saline IV 07/11/19 18:56 999 mls/hr ONETIME ONE Administration Promethazine HCl 25 mg/ Sodium 51 mls @ 100 mls/hr 07/11/19 17:56 07/11/19 18 :23 Chloride IV 07/11/19 18:26 100 mls/hr ONETIME ONE Administration Lorazepam 1 mg 07/11/19 17:55 07/11/19 18:23 Ativan IVPUSH 07/11/19 17:56 1 mg ONETIME ONE Administration - Re-Assessments/Exams Free Text/Narrative Re-Assessment/Exam: 07/11/19 18:38 Patient presents to the ED for evaluation of nausea, vomiting, diarrhea and abdominal pain. These symptoms are exactly what he was complaining of earlier this morning before he was discharged from the ER. I believe that when he went home and drink apple juice, this was to his detriment, and brought him back into the ER today. I did order 100 g of fentanyl 1 mg Ativan some IV fluids and 25 mg of Phenergan for management. Departure - Departure Time of Disposition: 19:27 Disposition: Home, Self-Care 01 Condition: Fair Clinical Impression: Nausea vomiting and diarrhea Abdominal pain Qualifiers: Abdominal location: upper abdomen, unspecified Qualified Code(s): R10.10 - Upper abdominal pain, unspecified - Discharge Information Instructions: Nausea and Vomiting, Adult, [id number] Referrals: Artie Rogers MD [Primary Care Provider] - Forms: ED Department Discharge Additional Instructions: You have been evaluated in the ED for nausea/vomiting/diarrhea. You have received IV fluid, nausea medication and pain medication in the ED to help with the dehydration from the vomiting and diarrhea. Over the next 24-48 hours please try to limit diet to clear liquids and advance as tolerate to a bland diet to alleviate symptoms of nausea/vomiting/diarrhea. Please try to refrain from juice as this may make your symptoms worse. Please return to the ED if your symptoms should change or worsen. - My Orders Last 24 Hours: My Active Orders 07/11/19 17:55 Peripheral IV Care [RC] . DIRECTED Sodium Chloride 0.9% [Saline Flush] 10 ml FLUSH ASDIRECTED PRN Peripheral IV Insertion Adult [OM.PC] Stat - Assessment/Plan Last 24 Hours: My Active Orders 07/11/19 17:55 Peripheral IV Care [RC] . DIRECTED Sodium Chloride 0.9% [Saline Flush] 10 ml FLUSH ASDIRECTED PRN Peripheral IV Insertion Adult [OM.PC] Stat
== END 2019-07-11 19:51 | disposition home or self-care (01) ==
LOC: JD.ED 14:31
DX: R10.10 Upper abdominal pain, unspecified (principal); R11.2 Nausea with vomiting, unspecified; R19.7 Diarrhea, unspecified; K21.9 Gastro-esophageal reflux disease without esophagitis; F17.210 Nicotine dependence, cigarettes, uncomplicated; Z91.048 Other nonmedicinal substance allergy status; Z79.899 Other long term (current) drug therapy
CPT/HCPCS: 96365; 96375; 96376; 99283; J2060; J2550; J3010; J7040; J7050

== ENCOUNTER 2019-07-12 07:53 | Emergency (ER) | payer MEDICAID ==
[2019-07-12 08:44] VITALS: BP 141/96
--- NOTE | 2019-07-12 09:07 | EDM.PDOC ---
ED HPI GENERAL MEDICAL PROBLEM - General Chief Complaint: Abdominal Pain Stated Complaint: VOMITING AND ABDOMINAL PAIN NOT BETTER Time Seen by Provider: 07/12/19 09:03 - History of Present Illness INITIAL COMMENTS - FREE TEXT/NARRATIVE: 33-year-old male presents emergency room with abdominal pain. Patient had multiple visits to the emergency room with the same identical pain. This is his third visit the last 24 hours. His evaluation by me yesterday morning was normal labs did not reveal anything. He was seen again early yesterday evening same complaints. He supposedly has dysfunction with the sphincter of odei and may get a stent placed here. He has follow-up with his water pump servicer in [place] this next month. Patient gets pain medications from his primary and recently got oxycodone here in the emergency room. He denies fevers or chills, but does have some nausea and persistent pain. Right Abdomen Pain Score (Numeric/FACES): 8 - Related Data Allergies Allergy/AdvReac Type Severity Reaction Status Date / Time cat dander Allergy Itching Verified 07/11/19 07:28 Home Meds: Home Meds Omeprazole [Prilosec] 20 mg PO BID 04/05/14 [History] Amylase/Lipase/Protease [Angel [place] 24,000 Unit] 5 cap PO ASDIRECTED 08/02/14 [ History] Ondansetron [Zofran ODT] 8 mg PO BID PRN 12/18/18 [History] HYDROmorphone [Dilaudid] 2 mg PO Q12H PRN #24 tab 03/03/19 [Rx] oxyCODONE HCl [Oxycodone HCl] 10 mg PO Q12H PRN #20 tablet 07/08/19 [Rx] HYDROmorphone [Dilaudid] 2 mg PO Q6H #8 tab 07/12/19 [Rx] oxyCODONE 5 mg PO Q6H #8 tab 07/12/19 [Rx] Past Medical History - Past Health History Medical/Surgical History: Denies Medical/Surgical History HEENT History: Reports: Impaired Vision Other HEENT History: wears glasses Cardiovascular History: Reports: None Respiratory History: Reports: None Gastrointestinal History: Reports: GERD, Other (See Below) Other Gastrointestinal History: Stents placed in pancrease, sphinctor of asad surgery . gastroparesis, chronic pancreatitis. 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 Stone was removed last summer in May-Jun Hematologic History: Reports: None Immunologic History: Reports: None Oncologic (Cancer) History: Reports: None Dermatologic History: Reports: Other (See Below) Other Dermatologic History: allergic to cats - Infectious Disease History Infectious Disease History: Reports: Chicken Pox, Shingles - Past Surgical History Head Surgeries/Procedures: Reports: None GI Surgical History: Reports: Cholecystectomy, EGD, ERCP Social & Family History - Family History Family Medical History: Noncontributory Cardiac: Reports: CAD, Stent Respiratory: Reports: None GI: Reports: None Neurological: Reports: CVA Oncologic: Reports: Breast, Other (See Below) Other Oncologic Family History: STOMACH - Tobacco Use Smoking Status *Q: Current Every Day Smoker Years of Tobacco use: 17 Packs/Tins Daily: 0.5 - Caffeine Use Caffeine Use: Reports: None - Recreational Drug Use Recreational Drug Use: Yes Recreational Drug Type: Reports: Marijuana/Hashish - Living Situation & Occupation Living situation: Reports: Single, Alone 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[employer]) ED [facility] GENERAL - Review of Systems Review Of Systems: See Below Constitutional: Reports: No Symptoms HEENT: Reports: No Symptoms Respiratory: Reports: No Symptoms Cardiovascular: Reports: No Symptoms GI/Abdominal: Reports: Abdominal Pain, Nausea, Vomiting. Denies: Constipation, Diarrhea : Reports: No Symptoms Musculoskeletal: Reports: Other (He has some arthritis in May be getting worse with this front coming through) Skin: Reports: No Symptoms Neurological: Reports: No Symptoms ED EXAM, GI/ABD - Physical Exam Exam: See Below Exam Limited By: No Limitations General Appearance: Alert, No Apparent Distress Head: Atraumatic, Normocephalic Respiratory/Chest: No Respiratory Distress, Lungs Clear, Normal Breath Sounds Cardiovascular: Regular Rate, Rhythm, No Edema, No Murmur GI/Abdominal Exam: Normal Bowel Sounds, Soft, Other (Some vague abdominal discomfort throughout worse right upper quadrant today. No rigidity rebound or guarding noted) Back Exam: Normal Inspection. No: CVA Tenderness (L), CVA Tenderness (R) Course - Vital Signs Last Recorded V/S: Last Vital Signs Temp 36.9 C 07/12/19 08:37 Pulse 84 07/12/19 08:37 Resp 16 07/12/19 08:37 BP 141/96 H 07/12/19 08:37 Pulse Ox 98 07/12/19 08:37 - Orders/Labs/Meds Labs: Laboratory Tests 07/12/19 07/12/19 Range/Units 09:40 09:40 WBC 9.20 H (4.23-9.07) K/mm3 RBC 5.19 (4.63-6.08) M/mm3 Hgb 15.1 (13.7-17.5) gm/L Hct 45.2 (40.1-51.0) % MCV 87.1 (79.0-92.2) fl MCH 29.1 (25.7-32.2) pg MCHC 33.4 (32.2-35.5) g/dl RDW Std Deviation 43.1 (35.1-43.9) fL Plt Count 248 (163-337) K/mm3 MPV 10.9 (9.4-12.3) fl Neutrophils % (Manual) 52 (40-60) % Band Neutrophils % 1 (0-10) % Lymphocytes % (Manual) 40 (20-40) % Atypical Lymphs % 0 % Monocytes % (Manual) 6 (2-10) % Eosinophils % (Manual) 0 L (0.8-7.0) % Basophils % (Manual) 1 (0.2-1.2) Platelet Estimate Adequate RBC Morph Comment Normal Sodium 145 (136-145) mEq/L Potassium 3.7 (3.5-5.1) mEq/L Chloride 106 (98-107) mEq/L Carbon Dioxide 29 (21-32) mEq/L Anion Gap 13.7 (5-15) BUN 7 (7-18) mg/dL Creatinine 0.9 (0.7-1.3) mg/dL Est Cr Clr Drug Dosing 135.73 mL/min Estimated GFR (MDRD) > 60 (>60) mL/min BUN/Creatinine Ratio 7.8 L (14-18) Glucose 103 (74-106) mg/dL Calcium 9.2 (8.5-10.1) mg/dL Total Bilirubin 0.7 (0.2-1.0) mg/dL AST 14 L (15-37) U/L ALT 34 (16-63) U/L Alkaline Phosphatase 93 (46-116) U/L C-Reactive Protein 0.6 (<1.0) mg/dL Total Protein 8.0 (6.4-8.2) g/dl Albumin 4.0 (3.4-5.0) g/dl Globulin 4.0 gm/dL Albumin/Globulin Ratio 1.0 (1-2) Lipase 85 (73-393) U/L Meds: Medications Discontinued Medications Generic Name Dose Route Start Last Admin Trade Name Freq PRN Reason Stop Dose Admin Diatrizoate Meglum/Diatrizoate Sod 90 ml 07/12/19 09:14 07/12/19 10:10 Gastrografin 37% PO 07/12/19 09:15 90 ml ONETIME ONE Administration Lactated Ringer's 1,000 mls @ 999 mls/hr 07/12/19 09:08 07/12/19 09:40 Ringers, Lactated IV 07/12/19 10:08 999 mls/hr .BOLUS ONE Administration Iopamidol 100 ml 07/12/19 09:14 07/12/19 10:10 Isovue-300 (61%) IVPUSH 07/12/19 09:15 100 ml ONETIME ONE Administration Metoclopramide HCl 5 mg 07/12/19 09:44 07/12/19 09:48 Reglan IVPUSH 07/12/19 09:45 5 mg ONETIME ONE Administration Sodium Chloride 10 ml 07/12/19 09:14 07/12/19 09:43 Saline Flush FLUSH 07/12/19 09:15 10 ml ONETIME ONE Administration - Re-Assessments/Exams Free Text/Narrative Re-Assessment/Exam: 07/12/19 09:14 This is getting a little unusual 3 visits in the last 24 hours requesting IV pain medication. He does not appear to be in much distress at this point I did inform the patient absolutely no uncertain terms that I will be happy to work this up but I am not doing give him any more pain medication unless I can clearly identify something that is wrong. He agrees with this CT ordered labs ordered we will give him some fluids anticipating he will have a CT with IV contrast. 07/12/19 11:[address] Cannon apparently his last medication refill to Dr. Yessy Mondragon was 7 weeks ago for one month and the patient has done pretty good stretching out his medications. The patient is scheduled see Dr. Cannon on 1 stent in 2 days medication he cannot afford the OxyContin 10 mg twice a day but will change him to the OxyIR 5 mg 4 times a day. He will continue the Dilaudid 2 mg the rather than taking it twice a day we'll increase this to 4 times a day. We will also add an H2 eugene like Pepcid 20 mg twice a day as his pancreatic enzymes could be causing gastritis. Did discuss the colitis seen on the CT this could be due to this bout of diarrhea that he's having they will continue to watch this no treatment other than probiotics at this time. Departure - Departure Time of Disposition: 11:31 Disposition: Home, Self-Care 01 Clinical Impression: Gastritis, Cholecystitis, Pancreatitis Abdominal pain Qualifiers: Abdominal location: upper abdomen, unspecified Qualified Code(s): R10.10 - Upper abdominal pain, unspecified - Discharge Information Prescriptions: HYDROmorphone [Dilaudid] 2 mg PO Q6H #8 tab oxyCODONE 5 mg PO Q6H #8 tab Referrals: Artie Rogers MD [Primary Care Provider] - Forms: ED Department Discharge Additional Instructions: Return to emergency room if any questions problems worsening symptoms. Clear liquid diet until you're feeling better. Follow-up with Dr. Cannon on Friday as scheduled. We will give you enough Dilaudid 2 mg 4 times a day and OxyIR 5 mg 4 times a day for a couple of days. It is recommended that he start Pepcid or famotidine the generic name for Pepcid , 20 mg twice daily this is [id number]. Start probiotics for the diarrhea.
[2019-07-12] MEDS ORDERED: Lactated Ringers 1,000 ML IV ONE (09:08)
[2019-07-12] MEDS ORDERED: Diatrizoate Meglumine/Diatrizoate Sodium 37% 120 ML Bottle PO ONE (09:14)
[2019-07-12] MEDS ORDERED: Sodium Chloride 0.9% 10 ML Syringe FLUSH ONE (09:14)
[2019-07-12] MEDS ORDERED: Iopamidol 612 MG/ML 100 ML Bottle IVPUSH ONE (09:14)
[2019-07-12] MEDS ORDERED: Metoclopramide 10 MG/2 ML SDV IVPUSH ONE (09:44)
--- NOTE | 2019-07-12 10:32 | CT ---
CT abdomen and pelvis Technique: Multiple axial sections were obtained from above the dome of the diaphragm inferiorly through the pubic symphysis. Intravenous and oral contrast was utilized. Comparison: Prior CT study of 06/14/19. Findings: Bowel wall thickening is seen within portions of the colon most prominent within the sigmoid region. This is an interval change from previous exam and is compatible with colitis. Visualized lung bases show nothing acute. Liver contains no focal abnormality. Spleen appears within normal limits. Surgical clips are seen from prior cholecystectomy. Kidneys show symmetric contrast enhancement without hydronephrosis or mass. Adrenal glands show no nodule. Aorta shows no aneurysm. No retroperitoneal adenopathy or mesenteric abnormalities are seen. No pelvic mass or adenopathy is seen. No free fluid or inflammatory change is seen. Appendix is felt to be visualized and is normal in size. Bone window settings were reviewed which show severe disc space narrowing at L5-S1 with vacuum disc phenomena. Impression: 1. Bowel wall thickening throughout most of the colon compatible with nonspecific colitis. This is an interval change from previous CT exam. 2. No other acute abnormality is seen. Diagnostic code #3
== END 2019-07-12 12:00 | disposition home or self-care (01) ==
LOC: JD.ED 07:53
DX: K29.70 Gastritis, unspecified, without bleeding (principal); K81.9 Cholecystitis, unspecified; K85.90 Acute pancreatitis without necrosis or infection, unspecified; K21.9 Gastro-esophageal reflux disease without esophagitis; F17.210 Nicotine dependence, cigarettes, uncomplicated; Z91.048 Other nonmedicinal substance allergy status; Z79.899 Other long term (current) drug therapy; Z90.49 Acquired absence of other specified parts of digestive tract
CPT/HCPCS: 36415; 74177; 80053; 83690; 85007; 85027; 86140; 96361; 96374; 99284; J2765; J7120; Q9963; Q9967; 99283

== ENCOUNTER 2019-10-15 13:48 | Emergency (ER) | payer MEDICAID ==
[2019-10-15 14:02] VITALS: BP 121/76; PULSE 113
[2019-10-15] MEDS ORDERED: Sodium Chloride 0.9% 10 ML Syringe FLUSH PRN (14:20)
[2019-10-15] MEDS ORDERED: Ketorolac 30 MG/ML SDV IVPUSH ONE (14:21)
[2019-10-15] MEDS ORDERED: HYDROmorphone 1 MG/ML Syringe IVPUSH ONE (14:21)
--- NOTE | 2019-10-15 15:18 | EDM.PDOC ---
ED HPI GENERAL MEDICAL PROBLEM - General Chief Complaint: Back Pain or Injury Stated Complaint: [facility] Time Seen by Provider: 10/15/19 13:59 Source of Information: Reports: Patient, EMS History Limitations: Reports: No Limitations - History of Present Illness INITIAL COMMENTS - FREE TEXT/NARRATIVE: The patient presents with left low back pain. This is a chronic issue. He has known bulging disc at L5. He saw a neurosurgeon in [place] and he had an MRI. He is supposed to do PT for a month before he can have surgery. He has been doing PT and a few days ago the pain in his left low back got worse. He is not sure why. He did not fall or lift or do anything to make it worse. He saw his chiropractor and had an adjustment. That did help for a short time. He then could not get out of bed. He went to the floor and he has been on the floor for the past 24 hours. He says he has some weakness to the left leg. He has not had a bowel movement in a few days. He is urinating more frequently. He has no numbness in his groin. Onset: Gradual Duration: Day(s): Location: Reports: Back Quality: Reports: Sharp Severity: Severe Improves with: Reports: Immobilization Worsens with: Reports: Movement Context: Denies: Trauma Associated Symptoms: Reports: No Other Symptoms Treatments LEARNING STRATEGIST: Reports: Other (see below) Other Treatments LEARNING STRATEGIST: Dilaudid 1 mg IV Left Lower Back Pain Score (Numeric/FACES): 10 - Related Data Allergies Allergy/AdvReac Type Severity Reaction Status Date / Time cat dander Allergy Itching Verified 10/15/19 13:52 Home Meds: Home Meds Omeprazole [Prilosec] 20 mg PO BID 04/05/14 [History] Amylase/Lipase/Protease [Angel PITTMAN 24,000 Unit] 5 cap PO ASDIRECTED 08/02/14 [ History] Ondansetron [Zofran ODT] 8 mg PO BID PRN 12/18/18 [History] Cyclobenzaprine [Flexeril] 10 mg PO TID PRN #20 tab 10/15/19 [Rx] Morphine [MS Contin] 15 mg PO DAILY 10/15/19 [History] oxyCODONE HCl/Acetaminophen [Oxycodone-Acetaminophen 5-325] 5 - 325 mg PO DAILY PRN 10/15/19 [History] Past Medical History - Past Health History Medical/Surgical History: Denies Medical/Surgical History HEENT History: Reports: Impaired Vision Other HEENT History: wears glasses Cardiovascular History: Reports: None Respiratory History: Reports: None Gastrointestinal History: Reports: GERD, Other (See Below) Other Gastrointestinal History: Stents placed in pancrease, sphinctor of asad surgery . gastroparesis, chronic pancreatitis. 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 Stone was removed last summer in May-Jun Hematologic History: Reports: None Immunologic History: Reports: None Oncologic (Cancer) History: Reports: None Dermatologic History: Reports: Other (See Below) Other Dermatologic History: allergic to cats - Infectious Disease History Infectious Disease History: Reports: Chicken Pox, Shingles - Past Surgical History GI Surgical History: Reports: Cholecystectomy, EGD, ERCP Social & Family History - Family History Family Medical History: Noncontributory Cardiac: Reports: CAD, Stent Respiratory: Reports: None GI: Reports: None Neurological: Reports: CVA Oncologic: Reports: Breast, Other (See Below) Other Oncologic Family History: STOMACH - Tobacco Use Smoking Status *Q: Current Every Day Smoker Years of Tobacco use: 20 Packs/Tins Daily: 0.5 - Caffeine Use Caffeine Use: Reports: None - Recreational Drug Use Recreational Drug Use: Yes Recreational Drug Type: Reports: Marijuana/Hashish - Living Situation & Occupation Living situation: Reports: Single, Alone 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[employer]) ED ROS GENERAL - Review of Systems Review Of Systems: See Below Constitutional: Reports: No Symptoms HEENT: Reports: No Symptoms Respiratory: Reports: No Symptoms Cardiovascular: Reports: No Symptoms Endocrine: Reports: No Symptoms GI/Abdominal: Reports: No Symptoms : Reports: No Symptoms Musculoskeletal: Reports: Back Pain ED EXAM,LOWER BACK PAIN/INJURY - Physical Exam Exam: See Below Exam Limited By: No Limitations General Appearance: Alert, No Apparent Distress Ears: Normal External Exam Nose: Normal Inspection Head: Atraumatic, Normocephalic Neck: Normal Inspection, Supple, Non-Tender Respiratory/Chest: No Respiratory Distress, Lungs Clear, Normal Breath Sounds Cardiovascular: Regular Rate, Rhythm, No Edema, No Murmur GI/Abdominal: Soft, Non-Tender, No Organomegaly, No Mass Back Exam: Other (Pain upon palpation to the left lower back) Extremities: Normal Inspection Neurological: Alert, Oriented x 3, Other (Mild numbness and weakness to the left leg) Course - Vital Signs Last Recorded V/S: Last Vital Signs Temp 99.6 F 10/15/19 13:57 Pulse 113 H 10/15/19 13:57 Resp 16 10/15/19 13:57 BP 121/76 10/15/19 13:57 Pulse Ox 96 10/15/19 13:57 - Orders/Labs/Meds Orders: Active Orders 24 hr Category Date Time Status Cardiac Monitoring [RC] . DIRECTED Care 10/15/19 14:20 Active Peripheral IV Care [RC] . DIRECTED Care 10/15/19 14:21 Active Sodium Chloride 0.9% [Saline Flush] Med 10/15/19 14:20 Active 10 ml FLUSH ASDIRECTED PRN Peripheral IV Insertion Adult [OM.PC] Stat Oth 10/15/19 14:20 Ordered Medication Orders Sodium Chloride (Saline Flush) 10 ml FLUSH ASDIRECTED PRN PRN Reason: Keep Vein Open Last Admin: 10/15/19 14:29 Dose: 10 ml Labs: Laboratory Tests 10/15/19 10/15/19 Range/Units 14:40 14:40 WBC 16.12 H (4.23-9.07) K/mm3 RBC 4.84 (4.63-6.08) M/mm3 Hgb 13.6 L (13.7-17.5) gm/dl Hct 41.3 (40.1-51.0) % MCV 85.3 (79.0-92.2) fl MCH 28.1 (25.7-32.2) pg MCHC 32.9 (32.2-35.5) g/dl RDW Std Deviation 42.3 (35.1-43.9) fL Plt Count 276 (163-337) K/mm3 MPV 10.4 (9.4-12.3) fl Neut % (Auto) 75.9 H (34.0-67.9) % Lymph % (Auto) 14.5 L (21.8-53.1) % [place] % (Auto) 8.1 (5.3-12.2) % Eos % (Auto) 0.8 (0.8-7.0) Baso % (Auto) 0.4 (0.1-1.2) % Neut # (Auto) 12.25 H (1.78-5.38) K/mm3 Lymph # (Auto) 2.33 (1.32-3.57) K/mm3 [place] # (Auto) 1.30 H (0.30-0.82) K/mm3 Eos # (Auto) 0.13 (0.04-0.54) K/mm3 Baso # (Auto) 0.06 (0.01-0.08) K/mm3 Manual Slide Review Normal smear Sodium 137 (136-145) mEq/L Potassium 3.8 (3.5-5.1) mEq/L Chloride 102 (98-107) mEq/L Carbon Dioxide 24 (21-32) mEq/L Anion Gap 14.8 (5-15) BUN 10 (7-18) mg/dL Creatinine 0.8 (0.7-1.3) mg/dL Est Cr Clr Drug Dosing 151.27 mL/min Estimated GFR (MDRD) > 60 (>60) mL/min BUN/Creatinine Ratio 12.5 L (14-18) Glucose 103 (74-106) mg/dL Calcium 9.7 (8.5-10.1) mg/dL Total Bilirubin 0.7 (0.2-1.0) mg/dL AST 15 (15-37) U/L ALT 21 (16-63) U/L Alkaline Phosphatase 85 (46-116) U/L Total Protein 7.9 (6.4-8.2) g/dl Albumin 3.6 (3.4-5.0) g/dl Globulin 4.3 gm/dL Albumin/Globulin Ratio 0.8 L (1-2) Lipase 60 L (73-393) U/L Meds: Medications Generic Name Dose Route Start Last Admin Trade Name Freq PRN Reason Stop Dose Admin Sodium Chloride 10 ml 10/15/19 14:20 10/15/19 14:29 Saline Flush FLUSH 10 ml ASDIRECTED PRN Administration Keep Vein Open Discontinued Medications Generic Name Dose Route Start Last Admin Trade Name Freq PRN Reason Stop Dose Admin Cyclobenzaprine HCl 10 mg 10/15/19 18:21 10/15/19 18:26 Flexeril PO 10/15/19 18:22 10 mg ONETIME ONE Administration Hydromorphone HCl 1 mg 10/15/19 14:21 10/15/19 14:28 Dilaudid IVPUSH 10/15/19 14:22 1 mg ONETIME ONE Administration Hydromorphone HCl 0.5 mg 10/15/19 16:06 10/15/19 16:21 Dilaudid IVPUSH 10/15/19 16:07 0.5 mg ONETIME ONE Administration Hydromorphone HCl 0.5 mg 10/15/19 19:23 10/15/19 19:30 Dilaudid IVPUSH 10/15/19 19:24 0.5 mg ONETIME ONE Administration Ketorolac Tromethamine 30 mg 10/15/19 14:21 10/15/19 14:27 Toradol IVPUSH 10/15/19 14:22 30 mg ONETIME ONE Administration - Re-Assessments/Exams Free Text/Narrative Re-Assessment/Exam: 10/15/19 19:44 I ordered an IV saline lock, labs and a total of 2mg of dilaudid, 10mg of flexeril and toradol 30mg. He can get up and walk to the bathroom with a walker. He needs to see his neurosurgeon but I do not feel it is an emergency tonight. I will discharge him home with some flexeril. Departure - Departure Time of Disposition: 19:50 Disposition: Home, Self-Care 01 Condition: Good Clinical Impression: Low back pain Qualifiers: Chronicity: chronic Back pain laterality: left Sciatica presence: with sciatica Sciatica laterality: sciatica of left side Qualified Code(s): M54.42 - Lumbago with sciatica, left side; G89.29 - Other chronic pain - Discharge Information *PRESCRIPTION DRUG MONITORING PROGRAM REVIEWED*: No *COPY OF PRESCRIPTION DRUG MONITORING REPORT IN PATIENT [place]: No Prescriptions: Cyclobenzaprine [Flexeril] 10 mg PO TID PRN #20 tab PRN Reason: Pain Referrals: Artie Rogers MD [Primary Care Provider] - 1 Week Forms: ED Department Discharge Additional Instructions: Take your medication as prescribed. Take flexeril every 8 hours as needed for pain. Follow up with your neurosurgeon next week. Please return if you are worse. - My Orders Last 24 Hours: My Active Orders 10/15/19 14:20 Cardiac Monitoring [RC] . DIRECTED Sodium Chloride 0.9% [Saline Flush] 10 ml FLUSH ASDIRECTED PRN Peripheral IV Insertion Adult [OM.PC] Stat 10/15/19 14:21 Peripheral IV Care [RC] . DIRECTED - Assessment/Plan Last 24 Hours: My Active Orders 10/15/19 14:20 Cardiac Monitoring [RC] . DIRECTED Sodium Chloride 0.9% [Saline Flush] 10 ml FLUSH ASDIRECTED PRN Peripheral IV Insertion Adult [OM.PC] Stat 10/15/19 14:21 Peripheral IV Care [RC] . DIRECTED
[2019-10-15] MEDS ORDERED: HYDROmorphone 0.5 MG/0.5 ML Syringe IVPUSH ONE ×2 (16:06→19:23)
[2019-10-15] MEDS ORDERED: Cyclobenzaprine 10 MG Tab PO ONE (18:21)
== END 2019-10-15 19:59 | disposition home or self-care (01) ==
LOC: JD.ED 13:48
DX: M54.42 Lumbago with sciatica, left side (principal); G89.29 Other chronic pain; K21.9 Gastro-esophageal reflux disease without esophagitis; F17.210 Nicotine dependence, cigarettes, uncomplicated; E66.9 Obesity, unspecified; Z68.30 Body mass index [BMI] 30.0-30.9, adult; Z91.09 Other allergy status, other than to drugs and biological substances; Z79.899 Other long term (current) drug therapy
CPT/HCPCS: 36415; 80053; 83690; 85025; 96374; 96375; 96376; 99285; A9270; J1170; J1885; 99283

== ENCOUNTER 2019-12-25 11:54 | Emergency (ER) | payer MEDICAID ==
[2019-12-25 12:16] VITALS: BP 185/123; PULSE 109
--- NOTE | 2019-12-25 12:21 | EDM.PDOC ---
ED HPI GENERAL MEDICAL PROBLEM - General Chief Complaint: Gastrointestinal Problem Stated Complaint: VOMITING AND ABDOMINAL PAIN Time Seen by Provider: 12/25/19 12:12 Source of Information: Reports: Patient, Old Records, Other ([place] [employer]) History Limitations: Reports: No Limitations - History of Present Illness INITIAL COMMENTS - FREE TEXT/NARRATIVE: Patient is a 34-year-old male who presents to the ED for evaluation of upper abdominal pain and vomiting. Patient is well-known to this ER for chronic pancreatitis and sphincter of Oddi dysfunction. Check of his records, notes that he has not been here since the end of June for a flare of his symptoms. Patient notes that he has had pretty good control since then. He states that yesterday he started with vomiting, 2 times, and it has worsened today. He states that he has vomited at least 15 times, and he notes this to be bilious with some diarrhea as well. He notes this to be steatorrhea. He states that he is having pain in his right upper abdomen, but states that he has had a cholecystectomy. He has not eaten anything today. He does note that he is passing gas and burping quite a bit. He notes the pain is very similar to his flares in the past. Right Upper Abdomen Pain Score (Numeric/FACES): 7 - Related Data Allergies Allergy/AdvReac Type Severity Reaction Status Date / Time cat dander Allergy Itching Verified 10/15/19 13:52 Home Meds: Home Meds Omeprazole [Prilosec] 20 mg PO BID 04/05/14 [History] Amylase/Lipase/Protease [Angel PITTMAN 24,000 Unit] 5 cap PO ASDIRECTED 08/02/14 [ History] Ondansetron [Zofran ODT] 8 mg PO BID PRN 12/18/18 [History] Cyclobenzaprine [Flexeril] 10 mg PO TID PRN #20 tab 10/15/19 [Rx] Morphine [MS Contin] 15 mg PO DAILY 10/15/19 [History] Promethazine [Phenergan] 25 mg PO Q6H PRN #24 tab 12/25/19 [Rx] oxyCODONE HCl/Acetaminophen [Percocet 10-325 mg Tablet] 1 tab PO Q6H #15 tablet 12/25/19 [Rx] Past Medical History HEENT History: Reports: Impaired Vision Other HEENT History: wears glasses Gastrointestinal History: Reports: GERD, Other (See Below) Other Gastrointestinal History: Stents placed in pancreas, sphinctor of asad surgery . gastroparesis, chronic pancreatitis. Musculoskeletal History: Reports: Back Pain, Chronic Psychiatric History: Reports: Addiction, Anxiety, Depression Endocrine/Metabolic History: Reports: Obesity/BMI 30+ Other Endocrine/Metabolic History: Pancreatic devisium diagnosed Summer 2015. Stone was removed summer-Jun - Infectious Disease History Infectious Disease History: Reports: Chicken Pox, Shingles - Past Surgical History GI Surgical History: Reports: Cholecystectomy, EGD, ERCP Social & Family History - Family History Cardiac: Reports: CAD, Stent Neurological: Reports: CVA Oncologic: Reports: Breast, Other (See Below) Other Oncologic Family History: STOMACH - Tobacco Use Smoking Status *Q: Current Every Day Smoker Years of Tobacco use: 18 Packs/Tins Daily: 0.2 - Caffeine Use Caffeine Use: Reports: None - Recreational Drug Use Recreational Drug Type: Reports: Marijuana/Hashish - Living Situation & Occupation Living situation: Reports: Single, Alone 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[employer]) ED ROS GENERAL - Review of Systems Review Of Systems: See Below Constitutional: Denies: Fever, Chills Respiratory: Denies: Shortness of Breath Cardiovascular: Denies: Chest Pain GI/Abdominal: Reports: Abdominal Pain (RUQ), Diarrhea (reports steatorrhea), Flatus, Nausea, Vomiting (multiple bilious episodes today) : Denies: Dysuria, Frequency, Urgency Neurological: Denies: Dizziness ED EXAM, GI/ABD - Physical Exam Exam: See Below Exam Limited By: No Limitations General Appearance: Alert, WD/WN, Mild Distress (pt has legs over the side bed rails, and is wriggling around in bed), Active Emesis (pt has 2 emesis bag at bedside with about an inch of bilious liquid present in both) Throat/Mouth: Normal Inspection, Normal Lips, Normal Teeth, Normal Gums, Normal Oropharynx, Normal Voice, No Airway Compromise Head: Atraumatic, Normocephalic Neck: Normal Inspection Respiratory/Chest: No Respiratory Distress, Lungs Clear, Normal Breath Sounds, No Accessory Muscle Use, Chest Non-Tender Cardiovascular: Normal Peripheral Pulses, Regular Rate, Rhythm, No Murmur GI/Abdominal Exam: Normal Bowel Sounds, Soft, No Distention, No Mass, Tender ( RUQ pain) Extremities: Normal Inspection, Normal Capillary Refill Neurological: Alert, Oriented, Normal Cognition, No Motor/Sensory Deficits Psychiatric: Normal Affect, Normal Mood Skin Exam: Warm, Dry, Intact, Normal Color, No Rash Course - Vital Signs Last Recorded V/S: Last Vital Signs Temp 98.3 F 12/25/19 12:14 Pulse 109 H 12/25/19 12:14 Resp 20 12/25/19 12:14 BP 185/123 H 12/25/19 12:14 Pulse Ox 98 12/25/19 12:14 - Orders/Labs/Meds Orders: Active Orders 24 hr Category Date Time Status Peripheral IV Care [RC] . DIRECTED Care 12/25/19 12:25 Active Sodium Chloride 0.9% [Saline Flush] Med 12/25/19 12:25 Active 10 ml FLUSH ASDIRECTED PRN Peripheral IV Insertion Adult [OM.PC] Stat Oth 12/25/19 12:24 Ordered Medication Orders Sodium Chloride (Saline Flush) 10 ml FLUSH ASDIRECTED PRN PRN Reason: Keep Vein Open Last Admin: 12/25/19 12:35 Dose: 10 ml Labs: Laboratory Tests 12/25/19 12/25/19 Range/Units 12:35 12:35 WBC 17.03 H (4.23-9.07) K/mm3 RBC 5.42 (4.63-6.08) M/mm3 Hgb 15.4 D (13.7-17.5) gm/dl Hct 47.1 (40.1-51.0) % MCV 86.9 (79.0-92.2) fl MCH 28.4 (25.7-32.2) pg MCHC 32.7 (32.2-35.5) g/dl RDW Std Deviation 46.7 H (35.1-43.9) fL Plt Count 308 (163-337) K/mm3 MPV 11.1 (9.4-12.3) fl Neut % (Auto) 74.3 H (34.0-67.9) % Lymph % (Auto) 19.7 L (21.8-53.1) % [place] % (Auto) 4.2 L (5.3-12.2) % Eos % (Auto) 1.1 (0.8-7.0) Baso % (Auto) 0.4 (0.1-1.2) % Neut # (Auto) 12.66 H (1.78-5.38) K/mm3 Lymph # (Auto) 3.35 (1.32-3.57) K/mm3 [place] # (Auto) 0.72 (0.30-0.82) K/mm3 Eos # (Auto) 0.18 (0.04-0.54) K/mm3 Baso # (Auto) 0.07 (0.01-0.08) K/mm3 Manual Slide Review Normal smear Sodium 141 (136-145) mEq/L Potassium 4.0 (3.5-5.1) mEq/L Chloride 104 (98-107) mEq/L Carbon Dioxide 22 (21-32) mEq/L Anion Gap 19.0 H (5-15) BUN 9 (7-18) mg/dL Creatinine 1.1 (0.7-1.3) mg/dL Est Cr Clr Drug Dosing 110.02 mL/min Estimated GFR (MDRD) > 60 (>60) mL/min BUN/Creatinine Ratio 8.2 L (14-18) Glucose 127 H (74-106) mg/dL Calcium 9.2 (8.5-10.1) mg/dL Total Bilirubin 0.7 (0.2-1.0) mg/dL AST 22 (15-37) U/L ALT 49 (16-63) U/L Alkaline Phosphatase 101 (46-116) U/L Total Protein 8.5 H (6.4-8.2) g/dl Albumin 4.5 (3.4-5.0) g/dl Globulin 4.0 gm/dL Albumin/Globulin Ratio 1.1 (1-2) Lipase 157 (73-393) U/L Meds: Medications Generic Name Dose Route Start Last Admin Trade Name Freq PRN Reason Stop Dose Admin Sodium Chloride 10 ml 12/25/19 12:25 12/25/19 12:35 Saline Flush FLUSH 10 ml ASDIRECTED PRN Administration Keep Vein Open Discontinued Medications Generic Name Dose Route Start Last Admin Trade Name Freq PRN Reason Stop Dose Admin Al Hydroxide/Mg Hydroxide 30 0 ml 12/25/19 13:33 12/25/19 16:05 ml/ Lidocaine HCl 15 ml PO 12/25/19 13:34 45 ml ONETIME ONE Administration Fentanyl 100 mcg 12/25/19 12:25 12/25/19 12:38 Sublimaze IVPUSH 12/25/19 12:26 100 mcg ONETIME ONE Administration Hydromorphone HCl 1 mg 12/25/19 13:24 12/25/19 13:28 Dilaudid IVPUSH 12/25/19 13:25 1 mg ONETIME ONE Administration Hydromorphone HCl 1 mg 12/25/19 14:49 12/25/19 15:01 Dilaudid IVPUSH 12/25/19 14:50 1 mg ONETIME ONE Administration Promethazine HCl 25 mg/ Sodium 51 mls @ 100 mls/hr 12/25/19 12:25 12/25/19 12 :44 Chloride IV 12/25/19 12:55 100 mls/hr ONETIME ONE Administration Sodium Chloride 1,000 mls @ 999 mls/hr 12/25/19 12:28 12/25/19 12:44 Normal Saline IV 12/25/19 13:28 999 mls/hr ONETIME ONE Administration Sodium Chloride 1,000 mls @ 999 mls/hr 12/25/19 14:48 12/25/19 15:00 Normal Saline IV 12/25/19 15:48 999 mls/hr ONETIME ONE Administration Lorazepam 1 mg 12/25/19 12:25 12/25/19 12:40 Ativan IVPUSH 12/25/19 12:26 1 mg ONETIME ONE Administration Metoclopramide HCl 10 mg 12/25/19 16:08 12/25/19 16:15 Reglan IVPUSH 12/25/19 16:09 10 mg ONETIME ONE Administration Ondansetron HCl 4 mg 12/25/19 13:38 12/25/19 13:49 Zofran IVPUSH 12/25/19 13:39 4 mg ONETIME ONE Administration - Re-Assessments/Exams Free Text/Narrative Re-Assessment/Exam: 12/25/19 12:36 Patient presents to the ED for evaluation of abdominal pain and vomiting. He states this is very similar to his flares in the past. Review of his records show that the last time he was seen in this ER for-like symptoms was at the end of June 2019. He did have a CT performed at that time. He does note that he talked with his specialist in [place], and they are trying to limit his amount of radiation. I did order some labs to include a CBC, CMP and a lipase for today's purposes. We will hold off on imaging at this time. IV will be placed with some IV fluids, he will get 25 mg of Phenergan, 100 micrograms fentanyl and 1 mg Ativan for initial management. Once he is able to keep some things down and does not feel overly nauseous I will try to give him a GI cocktail as well. Review of his [place] [employer] shows that he last got a prescription for morphine (MS contin 15mg) filled by his primary care provider on 12/13/2019. This was for a 1 month supply. He has not been able to keep anything down by mouth, so his pain has increased subsequently. 12/25/19 13:25 Pt was re-assessed at bedside per nursing staff, and he states the nausea has improved, but is still having pain. I did order 1mg IV Dilaudid for further management. Patient's labs did return, and demonstrate an elevated white count of 17,000, but no discernible left shift done by auto differential. Patient's anion gap is elevated at 19, his lipase is within normal limits. I do believe the elevated white count is more of a stress response to the emesis he has been having. 12/25/19 14:58 Patient was reassessed at bedside, and states that his nausea has subsided a bit. He is still having some pain. I did order another liter of fluids to be hung with 1 mg of Dilaudid for further pain management. Hopeful after the second liter of fluids, should help further lessen his nausea and hopeful for a expeditious discharge after that. 12/25/19 16:14 Pt is done with his second bag of fluids. He was reporting some mild nausea again, I did order 10 mg Reglan for further nausea control. Departure - Departure Time of Disposition: 15:58 Disposition: Home, Self-Care 01 Clinical Impression: Abdominal pain, Nausea and vomiting in adult - Discharge Information *PRESCRIPTION DRUG MONITORING PROGRAM REVIEWED*: No *COPY OF PRESCRIPTION DRUG MONITORING REPORT IN PATIENT [place]: No Prescriptions: oxyCODONE HCl/Acetaminophen [Percocet 10-325 mg Tablet] 1 tab PO Q6H #15 tablet Promethazine [Phenergan] 25 mg PO Q6H PRN #24 tab PRN Reason: Nausea Instructions: Nausea and Vomiting, Adult, [id number] Referrals: Artie Rogers MD [Primary Care Provider] - Forms: ED Department Discharge Additional Instructions: You have been evaluated in the ED for nausea/vomiting/diarrhea. You have received IV fluid in the ED to help with the dehydration from the vomiting and diarrhea. Over the next 24-48 hours please try to limit diet to clear liquids and advance as tolerate to a bland diet to alleviate symptoms of nausea/vomiting/diarrhea. Please use your regular prescription medications that you have at home to control further nausea and pain if needed. Please return to the ED if your symptoms should change or worsen. Sepsis Event Note - Evaluation Sepsis Screening Result: No Definite Risk - Focused Exam Vital Signs: Vital Signs Temp Pulse Resp BP Pulse Ox 12/25/19 12:14 98.3 F 109 H 20 185/123 H 98 Date Exam was Performed: 12/25/19 Time Exam was Performed: 16:54 - My Orders Last 24 Hours: My Active Orders 12/25/19 12:24 Peripheral IV Insertion Adult [OM.PC] Stat 12/25/19 12:25 Peripheral IV Care [RC] . DIRECTED Sodium Chloride 0.9% [Saline Flush] 10 ml FLUSH ASDIRECTED PRN - Assessment/Plan Last 24 Hours: My Active Orders 12/25/19 12:24 Peripheral IV Insertion Adult [OM.PC] Stat 12/25/19 12:25 Peripheral IV Care [RC] . DIRECTED Sodium Chloride 0.9% [Saline Flush] 10 ml FLUSH ASDIRECTED PRN
[2019-12-25] MEDS ORDERED: fentaNYL 100 MCG/2 ML SDV IVPUSH ONE (12:25)
[2019-12-25] MEDS ORDERED: Promethazine 25 MG in Sodium Chloride 0.9% 50 ML IV ONE (12:25)
[2019-12-25] MEDS ORDERED: LORazepam 2 MG/ML SDV IVPUSH ONE (12:25)
[2019-12-25] MEDS ORDERED: Sodium Chloride 0.9% 10 ML Syringe FLUSH PRN (12:25)
[2019-12-25] MEDS ORDERED: Sodium Chloride 0.9% 1,000 ML IV ONE ×2 (12:28→14:48)
[2019-12-25] MEDS ORDERED: HYDROmorphone 1 MG/ML Syringe IVPUSH ONE ×2 (13:24→14:49)
[2019-12-25] MEDS ORDERED: Alum Hydrox/Mag Hydrox/Simeth 30 ML, Lidocaine 2% 15 ML PO ONE ×2 (13:33)
[2019-12-25] MEDS ORDERED: Ondansetron 4 MG/2 ML SDV IVPUSH ONE (13:38)
[2019-12-25] MEDS ORDERED: Metoclopramide 10 MG/2 ML SDV IVPUSH ONE (16:08)
== END 2019-12-25 17:00 | disposition home or self-care (01) ==
LOC: JD.ED 11:54
DX: R10.11 Right upper quadrant pain (principal); R11.2 Nausea with vomiting, unspecified; F17.210 Nicotine dependence, cigarettes, uncomplicated; Z91.048 Other nonmedicinal substance allergy status
CPT/HCPCS: 36415; 80053; 83690; 85025; 96361; 96365; 96375; 96376; 99284; A9270; J1170; J2060; J2405; J2550; J2765; J3010; J7030; J7050

== ENCOUNTER 2019-12-31 08:30 | Emergency (ER) | payer MEDICAID ==
[2019-12-31] MEDS ORDERED: HYDROmorphone 1 MG/ML Syringe IVPUSH ONE (08:57)
[2019-12-31] MEDS ORDERED: Ondansetron 4 MG/2 ML SDV IVPUSH ONE (08:57)
[2019-12-31] MEDS ORDERED: Sodium Chloride 0.9% 10 ML Syringe FLUSH PRN (08:57)
[2019-12-31] MEDS ORDERED: Sodium Chloride 0.9% 1,000 ML IV SCH ×2 (09:00→11:30)
--- NOTE | 2019-12-31 09:16 | EDM.PDOC ---
ED HPI GENERAL MEDICAL PROBLEM - General Chief Complaint: Abdominal Pain Stated Complaint: ABDOMINAL PAIN/VOMITING Time Seen by Provider: 12/31/19 08:55 Source of Information: Reports: Patient, RN Notes Reviewed - History of Present Illness INITIAL COMMENTS - FREE TEXT/NARRATIVE: 34-year-old male comes in with severe abdominal pain, nausea, vomiting and diarrhea. All started about 5 hours ago. He has had multiple episodes of vomiting and also has had 2 episodes of watery, oily diarrhea". He has generalized mid and upper abdominal pain and also superimposed cramping. He does have history of chronic pancreatitis. She had been doing relatively okay recently up until early this morning. No obvious fever or chills. No severe cough or difficulty breathing. Right Upper Abdominal Pain Score (Numeric/FACES): 8 - Related Data Allergies Allergy/AdvReac Type Severity Reaction Status Date / Time cat dander Allergy Itching Verified 12/31/19 08:41 Home Meds: Home Meds Omeprazole [Prilosec] 20 mg PO BID 04/05/14 [History] Amylase/Lipase/Protease [Angel PITTMAN 24,000 Unit] 5 cap PO ASDIRECTED 08/02/14 [ History] Ondansetron [Zofran ODT] 8 mg PO BID PRN 12/18/18 [History] Cyclobenzaprine [Flexeril] 10 mg PO TID PRN #20 tab 10/15/19 [Rx] Morphine [MS Contin] 15 mg PO DAILY 10/15/19 [History] Promethazine [Phenergan] 25 mg PO Q6H PRN #24 tab 12/25/19 [Rx] oxyCODONE HCl/Acetaminophen [Percocet 10-325 mg Tablet] 1 tab PO Q6H #15 tablet 12/25/19 [Rx] Past Medical History - Past Health History Medical/Surgical History: Denies Medical/Surgical History HEENT History: Reports: Impaired Vision Other HEENT History: wears glasses Cardiovascular History: Reports: None Respiratory History: Reports: None Gastrointestinal History: Reports: GERD, Other (See Below) Other Gastrointestinal History: Stents placed in pancreas, sphinctor of asad surgery . gastroparesis, chronic pancreatitis. Genitourinary History: Reports: None Musculoskeletal History: Reports: Back Pain, Chronic Neurological History: Reports: None Psychiatric History: Reports: Addiction, Anxiety, Depression Endocrine/Metabolic History: Reports: Obesity/BMI 30+ Other Endocrine/Metabolic History: Pancreatic devisium diagnosed Summer 2015. Stone was removed summer-Jun Hematologic History: Reports: None Immunologic History: Reports: None Oncologic (Cancer) History: Reports: None Dermatologic History: Reports: Other (See Below) Other Dermatologic History: allergic to cats - Infectious Disease History Infectious Disease History: Reports: Chicken Pox, Shingles - Past Surgical History Head Surgeries/Procedures: Reports: None GI Surgical History: Reports: Cholecystectomy, EGD, ERCP Social & Family History - Family History Family Medical History: Noncontributory Cardiac: Reports: CAD, Stent Respiratory: Reports: None GI: Reports: None Neurological: Reports: CVA Oncologic: Reports: Breast, Other (See Below) Other Oncologic Family History: STOMACH - Tobacco Use Smoking Status *Q: Current Every Day Smoker Years of Tobacco use: 20 Packs/Tins Daily: 0.5 - Caffeine Use Caffeine Use: Reports: None - Recreational Drug Use Recreational Drug Use: Yes Recreational Drug Type: Reports: Marijuana/Hashish - Living Situation & Occupation Living situation: Reports: Single, Alone 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[employer]) ED ROS GENERAL - Review of Systems Review Of Systems: See Below Constitutional: Denies: Fever, Chills, Diaphoresis HEENT: Reports: No Symptoms Respiratory: Denies: Shortness of Breath Cardiovascular: Denies: Chest Pain GI/Abdominal: Reports: Abdominal Pain, Diarrhea, Decreased Appetite, Nausea, Vomiting Musculoskeletal: Reports: No Symptoms Skin: Reports: No Symptoms Neurological: Reports: Dizziness ED EXAM, GI/ABD - Physical Exam Exam: See Below General Appearance: Alert, Moderate Distress Throat/Mouth: Other Neck: Supple (Her mucosa is somewhat dry), Full Range of Motion Respiratory/Chest: No Respiratory Distress, Lungs Clear, Normal Breath Sounds Cardiovascular: Tachycardia GI/Abdominal Exam: Tender (Moderate diffuse tenderness upper mid and lower abdomen). No: Guarding, Rebound Extremities: Normal Inspection, Normal Range of Motion Neurological: Alert, No Motor/Sensory Deficits Skin Exam: Warm, Dry Course - Vital Signs Last Recorded V/S: Last Vital Signs Temp 97.7 F 12/31/19 08:37 Pulse 86 12/31/19 09:55 Resp 18 12/31/19 09:55 BP 105/85 12/31/19 09:55 Pulse Ox 97 12/31/19 09:55 - Orders/Labs/Meds Labs: Laboratory Tests 12/31/19 12/31/19 Range/Units 09:10 09:10 WBC 11.33 H (4.23-9.07) K/mm3 RBC 5.55 (4.63-6.08) M/mm3 Hgb 15.6 (13.7-17.5) gm/dl Hct 48.1 (40.1-51.0) % MCV 86.7 (79.0-92.2) fl MCH 28.1 (25.7-32.2) pg MCHC 32.4 (32.2-35.5) g/dl RDW Std Deviation 47.7 H (35.1-43.9) fL Plt Count 245 (163-337) K/mm3 MPV 11.3 (9.4-12.3) fl Neut % (Auto) 66.5 (34.0-67.9) % Lymph % (Auto) 25.2 (21.8-53.1) % [place] % (Auto) 5.0 L (5.3-12.2) % Eos % (Auto) 2.5 (0.8-7.0) Baso % (Auto) 0.5 (0.1-1.2) % Neut # (Auto) 7.54 H (1.78-5.38) K/mm3 Lymph # (Auto) 2.85 (1.32-3.57) K/mm3 [place] # (Auto) 0.57 (0.30-0.82) K/mm3 Eos # (Auto) 0.28 (0.04-0.54) K/mm3 Baso # (Auto) 0.06 (0.01-0.08) K/mm3 Sodium 144 (136-145) mEq/L Potassium 3.8 (3.5-5.1) mEq/L Chloride 106 (98-107) mEq/L Carbon Dioxide 23 (21-32) mEq/L Anion Gap 18.8 H (5-15) BUN 11 (7-18) mg/dL Creatinine 1.1 (0.7-1.3) mg/dL Est Cr Clr Drug Dosing 110.02 mL/min Estimated GFR (MDRD) > 60 (>60) mL/min BUN/Creatinine Ratio 10.0 L (14-18) Glucose 116 H (74-106) mg/dL Calcium 9.7 (8.5-10.1) mg/dL Total Bilirubin 0.7 (0.2-1.0) mg/dL AST 15 (15-37) U/L ALT 33 (16-63) U/L Alkaline Phosphatase 95 (46-116) U/L Total Protein 8.5 H (6.4-8.2) g/dl Albumin 4.7 (3.4-5.0) g/dl Globulin 3.8 gm/dL Albumin/Globulin Ratio 1.2 (1-2) Lipase 97 (73-393) U/L Meds: Medications Discontinued Medications Generic Name Dose Route Start Last Admin Trade Name Freq PRN Reason Stop Dose Admin Hydromorphone HCl 1 mg 12/31/19 08:57 12/31/19 09:17 Dilaudid IVPUSH 12/31/19 08:58 1 mg ONETIME ONE Administration Hydromorphone HCl 0.5 mg 12/31/19 11:18 12/31/19 11:28 Dilaudid IVPUSH 12/31/19 11:19 0.5 mg ONETIME ONE Administration Sodium Chloride 1,000 mls @ 999 mls/hr 12/31/19 09:00 12/31/19 09:14 Normal Saline IV 999 mls/hr ONETIME MACHELLE Administration Sodium Chloride 1,000 mls @ 999 mls/hr 12/31/19 11:30 12/31/19 11:26 Normal Saline IV 999 mls/hr ONETIME MACHELLE Administration Metoclopramide HCl 10 mg 12/31/19 11:18 12/31/19 11:27 Reglan IVPUSH 12/31/19 11:19 10 mg ONETIME ONE Administration Ondansetron HCl 4 mg 12/31/19 08:57 12/31/19 09:15 Zofran IVPUSH 12/31/19 08:58 4 mg ONETIME ONE Administration Sodium Chloride 10 ml 12/31/19 08:57 12/31/19 09:18 Saline Flush FLUSH 10 ml ASDIRECTED PRN Administration Keep Vein Open - Re-Assessments/Exams Free Text/Narrative Re-Assessment/Exam: 01/05/20 03:23 Labs did come back relatively normal, lipase not elevated, feeling better after IV fluid and meds, discharge instructions as documented. Departure - Departure Time of Disposition: 12:32 Disposition: Home, Self-Care 01 Condition: Fair Clinical Impression: Abdominal pain Qualifiers: Abdominal location: upper abdomen, unspecified Qualified Code(s): R10.10 - Upper abdominal pain, unspecified Vomiting Qualifiers: Vomiting type: unspecified Vomiting Intractability: non-intractable Nausea presence: with nausea Qualified Code(s): R11.2 - Nausea with vomiting, unspecified - Discharge Information Instructions: Abdominal Pain, Adult, [id number], Vomiting, Adult Referrals: Artie Rogers MD [Primary Care Provider] - Forms: ED Department Discharge Additional Instructions: clear liquids until this evening, then very careful bland diet as tolerated, Zofran or Phenergan if needed for further nausea or vomiting. Follow up with your regular medical provider as needed. Sepsis Event Note - Evaluation Sepsis Screening Result: No Definite Risk - Focused Exam Date Exam was Performed: 01/05/20 Time Exam was Performed: 03:23
[2019-12-31 09:56] VITALS: BP 105/85; PULSE 86
[2019-12-31] MEDS ORDERED: HYDROmorphone 0.5 MG/0.5 ML Syringe IVPUSH ONE (11:18)
[2019-12-31] MEDS ORDERED: Metoclopramide 10 MG/2 ML SDV IVPUSH ONE (11:18)
== END 2019-12-31 12:45 | disposition home or self-care (01) ==
LOC: JD.ED 08:30
DX: R10.10 Upper abdominal pain, unspecified (principal); R11.2 Nausea with vomiting, unspecified; K21.9 Gastro-esophageal reflux disease without esophagitis; E66.9 Obesity, unspecified; F17.210 Nicotine dependence, cigarettes, uncomplicated; Z91.048 Other nonmedicinal substance allergy status; Z79.899 Other long term (current) drug therapy; Z68.30 Body mass index [BMI] 30.0-30.9, adult
CPT/HCPCS: 36415; 80053; 83690; 85025; 96361; 96374; 96375; 96376; 99284; J1170; J2405; J2765; J7030

== ENCOUNTER 2020-01-25 10:33 | Emergency (ER) | payer MEDICAID ==
[2020-01-25 11:03] VITALS: BP 159/96; PULSE 84
[2020-01-25] MEDS ORDERED: Sodium Chloride 0.9% 10 ML Syringe FLUSH PRN (11:21)
[2020-01-25] MEDS ORDERED: Metoclopramide 10 MG/2 ML SDV IVPUSH ONE (11:22)
[2020-01-25] MEDS ORDERED: HYDROmorphone 0.5 MG/0.5 ML Syringe IVPUSH ONE ×2 (11:22→13:52)
--- NOTE | 2020-01-25 11:25 | EDM.PDOC ---
ED HPI GENERAL MEDICAL PROBLEM - General Chief Complaint: Abdominal Pain Stated Complaint: VOMITING AND ABDOMINAL PAIN Time Seen by Provider: 01/25/20 11:11 Source of Information: Reports: Patient History Limitations: Reports: No Limitations - History of Present Illness INITIAL COMMENTS - FREE TEXT/NARRATIVE: Patient is a 34-year-old male who presents with complaints of right upper abdominal pain, burning, vomiting, and diarrhea that started last evening. Patient states that he is taken Zofran, his MS Contin, as well as a Prilosec, however he is vomited after each of these medications we does not feel that he is able to keep it down. 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 He states that his [place] have requested that he limit his radiation exposure so they are not recommending that we do repeat CT scans when he comes in with these symptoms. Patient states that these are his normal symptoms with his acute flares. His specialist have stated that he is "an odd case "and that he has so far advanced that he does not have lipase elevations with his acute flares. He has no known triggers of his recurrent episodes. Denies fever, or chills prior to the onset of this flare. 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 (see below) Other Treatments CONSOLE ASSEMBLER: zofran-prilosec Upper Abdomen Pain Score (Numeric/FACES): 7 - Related Data Allergies Allergy/AdvReac Type Severity Reaction Status Date / Time cat dander Allergy Itching Verified 12/31/19 08:41 Home Meds: Home Meds Omeprazole [Prilosec] 20 mg PO BID 04/05/14 [History] Amylase/Lipase/Protease [Angel PITTMAN 24,000 Unit] 5 cap PO ASDIRECTED 08/02/14 [ History] Ondansetron [Zofran ODT] 8 mg PO BID PRN 12/18/18 [History] Morphine [MS Contin] 15 mg PO DAILY 10/15/19 [History] Promethazine [Phenergan] 25 mg PO Q6H PRN #24 tab 12/25/19 [Rx] Promethazine [Phenergan] 25 mg PO Q6H PRN #24 tab 01/25/20 [Rx] oxyCODONE HCl/Acetaminophen [Percocet 10-325 mg Tablet] 1 each PO Q4H PRN #10 tablet 01/25/20 [Rx] Past Medical History - Past Health History Medical/Surgical History: Denies Medical/Surgical History HEENT History: Reports: Impaired Vision Other HEENT History: wears glasses Cardiovascular History: Reports: None Respiratory History: Reports: None Gastrointestinal History: Reports: GERD, Other (See Below) Other Gastrointestinal History: Stents placed in pancreas, sphinctor of asad surgery . gastroparesis, chronic pancreatitis. Genitourinary History: Reports: None Musculoskeletal History: Reports: Back Pain, Chronic Neurological History: Reports: None Psychiatric History: Reports: Addiction, Anxiety, Depression Endocrine/Metabolic History: Reports: Obesity/BMI 30+ Other Endocrine/Metabolic History: Pancreatic devisium diagnosed Summer 2015. Stone was removed summer-Jun Hematologic History: Reports: None Immunologic History: Reports: None Oncologic (Cancer) History: Reports: None Dermatologic History: Reports: Other (See Below) Other Dermatologic History: allergic to cats - Infectious Disease History Infectious Disease History: Reports: Chicken Pox, Shingles - Past Surgical History Head Surgeries/Procedures: Reports: None GI Surgical History: Reports: Cholecystectomy, EGD, ERCP Social & Family History - Family History Family Medical History: Noncontributory Cardiac: Reports: CAD, Stent Respiratory: Reports: None GI: Reports: None Neurological: Reports: CVA Oncologic: Reports: Breast, Other (See Below) Other Oncologic Family History: STOMACH - Tobacco Use Smoking Status *Q: Current Every Day Smoker Years of Tobacco use: 18 Packs/Tins Daily: 0.5 - Caffeine Use Caffeine Use: Reports: None - Recreational Drug Use Recreational Drug Type: Reports: Marijuana/Hashish - Living Situation & Occupation Living situation: Reports: Single, Alone 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[employer]) ED [facility] GENERAL - Review of Systems Review Of Systems: See Below Constitutional: Reports: Decreased Appetite. Denies: Fever, Chills HEENT: Reports: No Symptoms Respiratory: Reports: No Symptoms Cardiovascular: Reports: No Symptoms Endocrine: Reports: No Symptoms GI/Abdominal: Reports: Abdominal Pain, Nausea, Vomiting. Denies: Black Stool, Bloody Stool, Constipation, Hematemesis, Hematochezia : Reports: No Symptoms. Denies: Dysuria, Flank Pain Musculoskeletal: Reports: No Symptoms Skin: Reports: No Symptoms Neurological: Reports: No Symptoms Psychiatric: Reports: No Symptoms Hematologic/Lymphatic: Reports: No Symptoms Immunologic: Reports: No Symptoms ED EXAM, GI/ABD - Physical Exam Exam: See Below Exam Limited By: No Limitations General Appearance: Alert, WD/WN, Moderate Distress Respiratory/Chest: No Respiratory Distress, Lungs Clear, Normal Breath Sounds, No Accessory Muscle Use, Chest Non-Tender Cardiovascular: Normal Peripheral Pulses, Regular Rate, Rhythm, No Edema, No Gallop, No JVD, No Murmur, No Rub GI/Abdominal Exam: Normal Bowel Sounds, Soft, No Organomegaly, No Distention, No Abnormal Bruit, No Mass, Pelvis Stable, Tender (Severe left upper quadrant) Neurological: Alert, Oriented, CN II-XII Intact, Normal Cognition, Normal Gait, Normal Reflexes, No Motor/Sensory Deficits Psychiatric: Normal Affect, Normal Mood Skin Exam: Warm, Dry, Intact, Normal Color, No Rash Course - Vital Signs Last Recorded V/S: Last Vital Signs Temp 97.6 F 01/25/20 11:02 Pulse 84 01/25/20 11:02 Resp 20 01/25/20 11:02 BP 159/96 H 01/25/20 11:02 Pulse Ox 100 01/25/20 11:02 - Orders/Labs/Meds Orders: Active Orders 24 hr Category Date Time Status Peripheral IV Care [RC] . DIRECTED Care 01/25/20 11:21 Active Peripheral IV Insertion Adult [OM.PC] Stat Oth 01/25/20 11:21 Ordered Labs: Laboratory Tests 01/25/20 01/25/20 Range/Units 11:48 11:48 WBC 12.86 H (4.23-9.07) K/mm3 RBC 5.25 (4.63-6.08) M/mm3 Hgb 14.8 (13.7-17.5) gm/dl Hct 45.6 (40.1-51.0) % MCV 86.9 (79.0-92.2) fl MCH 28.2 (25.7-32.2) pg MCHC 32.5 (32.2-35.5) g/dl RDW Std Deviation 46.1 H (35.1-43.9) fL Plt Count 304 D (163-337) K/mm3 MPV 10.5 (9.4-12.3) fl Neut % (Auto) 80.2 H (34.0-67.9) % Lymph % (Auto) 15.1 L (21.8-53.1) % [place] % (Auto) 3.7 L (5.3-12.2) % Eos % (Auto) 0.6 L (0.8-7.0) Baso % (Auto) 0.2 (0.1-1.2) % Neut # (Auto) 10.31 H (1.78-5.38) K/mm3 Lymph # (Auto) 1.94 (1.32-3.57) K/mm3 [place] # (Auto) 0.47 (0.30-0.82) K/mm3 Eos # (Auto) 0.08 (0.04-0.54) K/mm3 Baso # (Auto) 0.03 (0.01-0.08) K/mm3 Sodium 144 (136-145) mEq/L Potassium 3.9 (3.5-5.1) mEq/L Chloride 105 (98-107) mEq/L Carbon Dioxide 27 (21-32) mEq/L Anion Gap 15.9 H (5-15) BUN 11 (7-18) mg/dL Creatinine 0.9 (0.7-1.3) mg/dL Est Cr Clr Drug Dosing 134.46 mL/min Estimated GFR (MDRD) > 60 (>60) mL/min BUN/Creatinine Ratio 12.2 L (14-18) Glucose 132 H (74-106) mg/dL Calcium 9.4 (8.5-10.1) mg/dL Total Bilirubin 0.6 (0.2-1.0) mg/dL AST 69 H (15-37) U/L ALT 93 H (16-63) U/L Alkaline Phosphatase 114 (46-116) U/L C-Reactive Protein 2.5 H* (<1.0) mg/dL Total Protein 8.4 H (6.4-8.2) g/dl Albumin 4.1 (3.4-5.0) g/dl Globulin 4.3 gm/dL Albumin/Globulin Ratio 1.0 (1-2) Lipase 75 (73-393) U/L Meds: Medications Discontinued Medications Generic Name Dose Route Start Last Admin Trade Name Freq PRN Reason Stop Dose Admin Fentanyl 100 mcg 01/25/20 12:30 01/25/20 12:38 Sublimaze IVPUSH 01/25/20 12:31 100 mcg ONETIME ONE Administration Hydromorphone HCl 1 mg 01/25/20 11:22 01/25/20 11:48 Dilaudid IVPUSH 01/25/20 11:23 1 mg ONETIME ONE Administration Hydromorphone HCl 1 mg 01/25/20 13:52 01/25/20 13:58 Dilaudid IVPUSH 01/25/20 13:53 1 mg ONETIME ONE Administration Hydromorphone HCl 1 mg 01/25/20 15:21 01/25/20 15:38 Dilaudid IM 01/25/20 15:22 Not Given ONETIME ONE Hydromorphone HCl 1 mg 01/25/20 15:21 01/25/20 15:33 Dilaudid IVPUSH 01/25/20 15:22 1 mg ONETIME ONE Administration Sodium Chloride 1,000 mls @ 999 mls/hr 01/25/20 11:30 01/25/20 11:49 Normal Saline IV 999 mls/hr ASDIRECTED MACHELLE Administration Sodium Chloride 1,000 mls @ 999 mls/hr 01/25/20 12:45 01/25/20 13:13 Normal Saline IV 999 mls/hr ASDIRECTED MACHELLE Administration Promethazine HCl 25 mg/ Sodium 51 mls @ 100 mls/hr 01/25/20 13:05 01/25/20 13 :29 Chloride IV 01/25/20 13:35 100 mls/hr ONETIME ONE Administration Metoclopramide HCl 7.5 mg 01/25/20 11:22 01/25/20 11:48 Reglan IVPUSH 01/25/20 11:23 7.5 mg ONETIME ONE Administration Ondansetron HCl 4 mg 01/25/20 12:29 01/25/20 12:38 Zofran IVPUSH 01/25/20 12:30 4 mg ONETIME ONE Administration Ondansetron HCl 4 mg 01/25/20 15:22 01/25/20 15:32 Zofran IVPUSH 01/25/20 15:23 4 mg ONETIME ONE Administration Sodium Chloride 10 ml 01/25/20 11:21 01/25/20 11:49 Saline Flush FLUSH 10 ml ASDIRECTED PRN Administration Keep Vein Open - Re-Assessments/Exams Free Text/Narrative Re-Assessment/Exam: 01/25/20 12:44 Patient's hematology was significant for mildly elevated BBC at 12.86, anion gap of 15.9, CRP 2.5, AST 69, ALT 93. Lipase is normal at 75. Patient continue to have pain and nausea after the Dilaudid and Reglan were given. I have ordered fentanyl 100 mcg IV as well as Zofran. We will give another bag of IV fluids as well. 01/25/20 1545 Patient has received a total of 4 mg of IV Dilaudid, 100 mcg of fentanyl, Reglan , Zofran, and Phenergan. After all these medications he feels that his pain and nausea are to the point where he will be able to manage at home. I will provide him with a few Percocet to help with the pain as well as Phenergan for nausea. Recommend that he follow-up with his primary care provider and specialist in [place] as planned. Discharge instructions as documented. Departure - Departure Time of Disposition: 16:02 Disposition: Home, Self-Care 01 Condition: Fair Clinical Impression: Chronic recurrent pancreatitis, Sphincter of Oddi dysfunction - Discharge Information *PRESCRIPTION DRUG MONITORING PROGRAM REVIEWED*: Yes *COPY OF PRESCRIPTION DRUG MONITORING REPORT IN PATIENT [place]: No Prescriptions: oxyCODONE HCl/Acetaminophen [Percocet 10-325 mg Tablet] 1 each PO Q4H PRN #10 tablet PRN Reason: Pain Promethazine [Phenergan] 25 mg PO Q6H PRN #24 tab PRN Reason: Nausea/Vomiting Instructions: Chronic Pancreatitis Referrals: Artie Rogers MD [Primary Care Provider] - Forms: ED Department Discharge Additional Instructions: You were seen in the emergency department today for abdominal pain and vomiting related to your chronic pancreatitis. You received 2 L of IV fluids, pain medications and nausea medications which you state did improve your symptoms. Your lab work was normal. The prescription has been sent for Percocets and Phenergan. Uses medications as prescribed. Do not drive or operate heavy machinery after taking the Percocet or the Phenergan as they can be sedating. Recommend that you follow-up with your primary care provider. If you should experience any worsening symptoms, please do not hesitate to return to the emergency department. Sepsis Event Note - Evaluation Sepsis Screening Result: No Definite Risk - Focused Exam Date Exam was Performed: 01/26/20 Time Exam was Performed: 01:14 - My Orders Last 24 Hours: My Active Orders 01/25/20 11:21 Peripheral IV Care [RC] . DIRECTED Peripheral IV Insertion Adult [OM.PC] Stat - Assessment/Plan Last 24 Hours: My Active Orders 01/25/20 11:21 Peripheral IV Care [RC] . DIRECTED Peripheral IV Insertion Adult [OM.PC] Stat
[2020-01-25] MEDS ORDERED: Sodium Chloride 0.9% 1,000 ML IV SCH ×2 (11:30→12:45)
[2020-01-25] MEDS ORDERED: Ondansetron 4 MG/2 ML SDV IVPUSH ONE ×2 (12:29→15:22)
[2020-01-25] MEDS ORDERED: fentaNYL 100 MCG/2 ML SDV IVPUSH ONE (12:30)
[2020-01-25] MEDS ORDERED: Promethazine 25 MG in Sodium Chloride 0.9% 50 ML IV ONE (13:05)
[2020-01-25] MEDS ORDERED: HYDROmorphone 1 MG/ML Syringe IVPUSH ONE (15:21)
[2020-01-25] MEDS ORDERED: HYDROmorphone 1 MG/ML Syringe IM ONE (15:21)
== END 2020-01-25 16:32 | disposition home or self-care (01) ==
LOC: JD.ED 10:33
DX: K86.1 Other chronic pancreatitis (principal); K83.09 Other cholangitis; F17.210 Nicotine dependence, cigarettes, uncomplicated; K21.9 Gastro-esophageal reflux disease without esophagitis; E66.9 Obesity, unspecified; Z68.23 Body mass index [BMI] 23.0-23.9, adult; Z91.09 Other allergy status, other than to drugs and biological substances
CPT/HCPCS: 36415; 80053; 83690; 85025; 86140; 96361; 96365; 96375; 96376; 99284; J1170; J2405; J2550; J2765; J3010; J7030; J7050

== ENCOUNTER 2020-02-28 11:46 | Emergency (ER) | payer MEDICAID ==
[2020-02-28 11:56] VITALS: BP 131/97; PULSE 108
[2020-02-28] MEDS ORDERED: Sodium Chloride 0.9% 10 ML Syringe FLUSH PRN (11:59)
[2020-02-28] MEDS ORDERED: HYDROmorphone 1 MG/ML Syringe IVPUSH ONE (12:00)
[2020-02-28] MEDS ORDERED: Promethazine 25 MG in Sodium Chloride 0.9% 50 ML IV ONE (12:00)
[2020-02-28] MEDS ORDERED: Ketorolac 30 MG/ML SDV IVPUSH ONE (12:00)
--- NOTE | 2020-02-28 12:09 | EDM.PDOC ---
ED HPI GENERAL MEDICAL PROBLEM - General Chief Complaint: Abdominal Pain Stated Complaint: VOMITING AND ABDOMINAL PAIN Time Seen by Provider: 02/28/20 11:53 Source of Information: Reports: Patient History Limitations: Reports: No Limitations - History of Present Illness INITIAL COMMENTS - FREE TEXT/NARRATIVE: Patient is a 34-year-old male who presents with complaints of right upper quadrant abdominal pain, burning, vomiting, and diarrhea. Patient has a history of recurrent, chronic pancreatitis and states this pain feels like his previous episodes. This episode started last night after eating. He took his MS Contin and Zofran this morning, however states he continued to vomit and feels that he likely vomited this up. His primary care provider is Dr. Rodríguez and states that he has had a follow-up with him and no changes were made to his medications. He does have specialist in [place], however with the pandemic he has no upcoming appointment scheduled. He does state that his specialist have recommended that we do not continue to complete x-rays or CTs to limit the amount of radiation he receives. Patient verbalized that he oftentimes does not have elevations in his lipase with flares. He denies any fever, chills, hematochezia, or hematemesis. Right Upper Abdomen Pain Score (Numeric/FACES): 7 - Related Data Allergies Allergy/AdvReac Type Severity Reaction Status Date / Time cat dander Allergy Itching Verified 02/28/20 11:56 Home Meds: Home Meds Omeprazole [Prilosec] 20 mg PO BID 04/05/14 [History] Amylase/Lipase/Protease [Angel [place] 24,000 Unit] 5 cap PO ASDIRECTED 08/02/14 [ History] Ondansetron [Zofran ODT] 8 mg PO BID PRN 12/18/18 [History] Morphine [MS Contin] 15 mg PO DAILY 10/15/19 [History] Promethazine [Phenergan] 25 mg PO Q6H PRN #24 tab 01/25/20 [Rx] Promethazine [Phenergan] 25 mg PO Q6H PRN #10 tab 02/28/20 [Rx] Past Medical History - Past Health History Medical/Surgical History: Denies Medical/Surgical History HEENT History: Reports: Impaired Vision Other HEENT History: wears glasses Cardiovascular History: Reports: None Respiratory History: Reports: None Gastrointestinal History: Reports: GERD, Other (See Below) Other Gastrointestinal History: Stents placed in pancreas, sphinctor of asad surgery . gastroparesis, chronic pancreatitis. Genitourinary History: Reports: None Musculoskeletal History: Reports: Back Pain, Chronic Neurological History: Reports: None Psychiatric History: Reports: Addiction, Anxiety, Depression Endocrine/Metabolic History: Reports: Obesity/BMI 30+ Other Endocrine/Metabolic History: Pancreatic devisium diagnosed Summer 2015. Stone was removed summer-Jun Hematologic History: Reports: None Immunologic History: Reports: None Oncologic (Cancer) History: Reports: None Dermatologic History: Reports: Other (See Below) Other Dermatologic History: allergic to cats - Infectious Disease History Infectious Disease History: Reports: Chicken Pox, Shingles - Past Surgical History Head Surgeries/Procedures: Reports: None GI Surgical History: Reports: Cholecystectomy, EGD, ERCP Social & Family History - Family History Family Medical History: Noncontributory Cardiac: Reports: CAD, Stent Respiratory: Reports: None GI: Reports: None Neurological: Reports: CVA Oncologic: Reports: Breast, Other (See Below) Other Oncologic Family History: STOMACH - Tobacco Use Smoking Status *Q: Current Every Day Smoker Years of Tobacco use: 16 Packs/Tins Daily: 0.5 - Caffeine Use Caffeine Use: Reports: None - Recreational Drug Use Recreational Drug Use: Yes Drug Use in Last 12 Months: Yes Recreational Drug Type: Reports: Marijuana/Hashish Recreational Drug Use Frequency: Weekly - Living Situation & Occupation Living situation: Reports: Single, Alone 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[employer]) ED ROS GENERAL - Review of Systems Review Of Systems: See Below Constitutional: Reports: No Symptoms. Denies: Fever, Chills, Weakness HEENT: Reports: No Symptoms Respiratory: Reports: No Symptoms. Denies: Shortness of Breath, Cough Cardiovascular: Reports: No Symptoms. Denies: Chest Pain, Dyspnea on Exertion, Lightheadedness, Palpitations Endocrine: Reports: No Symptoms GI/Abdominal: Reports: Abdominal Pain, Diarrhea, Nausea, Vomiting. Denies: Black Stool, Bloody Stool, Hematemesis, Hematochezia : Reports: No Symptoms Musculoskeletal: Reports: No Symptoms Skin: Reports: No Symptoms Neurological: Reports: No Symptoms. Denies: Dizziness, Headache Psychiatric: Reports: No Symptoms Hematologic/Lymphatic: Reports: No Symptoms Immunologic: Reports: No Symptoms ED EXAM, GI/ABD - Physical Exam Exam: See Below Exam Limited By: No Limitations General Appearance: Alert, WD/WN, Mild Distress Respiratory/Chest: No Respiratory Distress, Lungs Clear, Normal Breath Sounds, No Accessory Muscle Use, Chest Non-Tender Cardiovascular: Normal Peripheral Pulses, Regular Rate, Rhythm, No Edema, No Gallop, No JVD, No Murmur, No Rub GI/Abdominal Exam: Normal Bowel Sounds, Soft, No Organomegaly, No Distention, No Abnormal Bruit, No Mass, Pelvis Stable, Tender (Left upper quadrant, epigastric, right upper quadrant.) (Male) Exam: No Hernia Rectal (Males) Exam: Normal Exam, Normal Rectal Tone, Prostate Normal Back Exam: Normal Inspection, Full Range of Motion, NT Neurological: Alert, Oriented, CN II-XII Intact, Normal Cognition, Normal Gait, Normal Reflexes, No Motor/Sensory Deficits Psychiatric: Normal Affect, Normal Mood Skin Exam: Warm, Dry, Intact, Normal Color, No Rash Course - Vital Signs Last Recorded V/S: Last Vital Signs Temp 98 F 02/28/20 11:52 Pulse 108 H 02/28/20 11:52 Resp 20 02/28/20 11:52 BP 131/97 H 02/28/20 11:52 Pulse Ox 99 02/28/20 11:52 - Orders/Labs/Meds Orders: Active Orders 24 hr Category Date Time Status Peripheral IV Care [RC] . DIRECTED Care 02/28/20 11:59 Active UA W/MICROSCOPIC [URIN] Stat Lab 02/28/20 13:20 Received Sodium Chloride 0.9% [Normal Saline] 1,000 ml Med 02/28/20 12:15 Active IV ASDIRECTED Sodium Chloride 0.9% [Saline Flush] Med 02/28/20 11:59 Active 10 ml FLUSH ASDIRECTED PRN Peripheral IV Insertion Adult [OM.PC] Stat Oth 02/28/20 11:59 Ordered Medication Orders Sodium Chloride (Normal Saline) 1,000 mls @ 999 mls/hr IV ASDIRECTED MACHELLE Last Admin: 02/28/20 12:12 Dose: 999 mls/hr Sodium Chloride (Saline Flush) 10 ml FLUSH ASDIRECTED PRN PRN Reason: Keep Vein Open Last Admin: 02/28/20 12:13 Dose: 10 ml Labs: Laboratory Tests 02/28/20 02/28/20 Range/Units 12:14 12:14 WBC 11.34 H (4.23-9.07) K/mm3 RBC 5.08 (4.63-6.08) M/mm3 Hgb 14.6 (13.7-17.5) gm/dl Hct 44.9 (40.1-51.0) % MCV 88.4 (79.0-92.2) fl MCH 28.7 (25.7-32.2) pg MCHC 32.5 (32.2-35.5) g/dl RDW Std Deviation 46.4 H (35.1-43.9) fL Plt Count 283 (163-337) K/mm3 MPV 10.8 (9.4-12.3) fl Neut % (Auto) 61.3 (34.0-67.9) % Lymph % (Auto) 30.1 (21.8-53.1) % [place] % (Auto) 5.1 L (5.3-12.2) % Eos % (Auto) 2.5 (0.8-7.0) Baso % (Auto) 0.8 (0.1-1.2) % Neut # (Auto) 6.96 H (1.78-5.38) K/mm3 Lymph # (Auto) 3.41 (1.32-3.57) K/mm3 [place] # (Auto) 0.58 (0.30-0.82) K/mm3 Eos # (Auto) 0.28 (0.04-0.54) K/mm3 Baso # (Auto) 0.09 H (0.01-0.08) K/mm3 Sodium 139 (136-145) mEq/L Potassium 4.1 (3.5-5.1) mEq/L Chloride 104 (98-107) mEq/L Carbon Dioxide 24 (21-32) mEq/L Anion Gap 15.1 H (5-15) BUN 10 (7-18) mg/dL Creatinine 0.8 (0.7-1.3) mg/dL Est Cr Clr Drug Dosing 151.27 mL/min Estimated GFR (MDRD) > 60 (>60) mL/min BUN/Creatinine Ratio 12.5 L (14-18) Glucose 113 H (74-106) mg/dL Calcium 9.6 (8.5-10.1) mg/dL Total Bilirubin 0.3 (0.2-1.0) mg/dL AST 12 L (15-37) U/L ALT 25 (16-63) U/L Alkaline Phosphatase 84 (46-116) U/L C-Reactive Protein 1.3 H* (<1.0) mg/dL Total Protein 8.0 (6.4-8.2) g/dl Albumin 3.9 (3.4-5.0) g/dl Globulin 4.1 gm/dL Albumin/Globulin Ratio 1.0 (1-2) Lipase 285 (73-393) U/L Meds: Medications Generic Name Dose Route Start Last Admin Trade Name Freq PRN Reason Stop Dose Admin Sodium Chloride 1,000 mls @ 999 mls/hr 02/28/20 12:15 02/28/20 12:12 Normal Saline IV 999 mls/hr ASDIRECTED MACHELLE Administration Sodium Chloride 10 ml 02/28/20 11:59 02/28/20 12:13 Saline Flush FLUSH 10 ml ASDIRECTED PRN Administration Keep Vein Open Discontinued Medications Generic Name Dose Route Start Last Admin Trade Name Freq PRN Reason Stop Dose Admin Hydromorphone HCl 1 mg 02/28/20 12:00 02/28/20 12:12 Dilaudid IVPUSH 02/28/20 12:01 1 mg ONETIME ONE Administration Hydromorphone HCl 0.5 mg 02/28/20 13:23 Dilaudid IVPUSH 02/28/20 13:24 ONETIME ONE Promethazine HCl 25 mg/ Sodium 51 mls @ 100 mls/hr 02/28/20 12:00 02/28/20 12 :13 Chloride IV 02/28/20 12:30 100 mls/hr ONETIME ONE Administration Ketorolac Tromethamine 30 mg 02/28/20 12:00 02/28/20 12:12 Toradol IVPUSH 02/28/20 12:01 30 mg ONETIME ONE Administration Ondansetron HCl 4 mg 02/28/20 13:23 Zofran IVPUSH 02/28/20 13:24 ONETIME ONE - Re-Assessments/Exams Free Text/Narrative Re-Assessment/Exam: 02/28/20 13:34 Patient's work-up was grossly unremarkable. WBCs were slightly elevated 11.34, CRP slightly elevated at 1.3, lipase normal at 285. Patient states he is feeling better, however the pain and nausea are starting to return. I have ordered Dilaudid 0.5 mg as well as Zofran. Patient feels he is comfortable going home after that. He was requesting something additional for pain be prescribed; however after review of the ESTIMATOR JEWELRY shows he was prescribed 90 tabs of Hydromorphone 2mg tabs on February 03 by [facility] in [place], [place], as well as morphine sulfate solution on 10 February by Jovani Rodríguez. Patient also has prescriptions for MS Contin 15mg that were ordered by both [facility] and Artie Rod[facility]guez. Discussed I am not comfortable providing him with additional narcotics and that he may use what has already been prescribed for pain. I will provide him with a short course of Phenergan for nausea to be used if his Zofran is not working. Discharge instructions as documented. Departure - Departure Time of Disposition: 13:34 Disposition: Home, Self-Care 01 Condition: Fair Clinical Impression: Relapsing chronic pancreatitis, Nausea and vomiting in adult patient - Discharge Information *PRESCRIPTION DRUG MONITORING PROGRAM REVIEWED*: Yes *COPY OF PRESCRIPTION DRUG MONITORING REPORT IN PATIENT [place]: No Prescriptions: Promethazine [Phenergan] 25 mg PO Q6H PRN #10 tab PRN Reason: Nausea/Vomiting Instructions: Chronic Pancreatitis, Pancreatitis Eating Plan Referrals: Artie Rogers MD [Primary Care Provider] - Forms: ED Department Discharge Additional Instructions: You were seen in the emergency department today for a flare of your chronic pancreatitis. While in ER you received a liter of IV fluids, pain medications, and nausea medications. These did improve your symptoms. Recommend that she maintain a clear liquid diet for the next 24 to 48 hours. Use the pain medications that you have to manage your acute pain. A prescription for a short course of Phenergan for nausea has been sent to [place] pharmacy in [facility]. Use this medication as prescribed. Recommend that you follow-up with your primary care provider and return to ER as needed. Sepsis Event Note - Evaluation Sepsis Screening Result: No Definite Risk - Focused Exam Vital Signs: Vital Signs Temp Pulse Resp BP Pulse Ox 02/28/20 11:52 98 F 108 H 20 131/97 H 99 Date Exam was Performed: 02/28/20 Time Exam was Performed: 13:40 - My Orders Last 24 Hours: My Active Orders 02/28/20 11:59 Peripheral IV Care [RC] . DIRECTED Sodium Chloride 0.9% [Saline Flush] 10 ml FLUSH ASDIRECTED PRN Peripheral IV Insertion Adult [OM.PC] Stat 02/28/20 12:15 Sodium Chloride 0.9% [Normal Saline] 1,000 ml IV ASDIRECTED 02/28/20 13:20 UA W/MICROSCOPIC [URIN] Stat - Assessment/Plan Last 24 Hours: My Active Orders 02/28/20 11:59 Peripheral IV Care [RC] . DIRECTED Sodium Chloride 0.9% [Saline Flush] 10 ml FLUSH ASDIRECTED PRN Peripheral IV Insertion Adult [OM.PC] Stat 02/28/20 12:15 Sodium Chloride 0.9% [Normal Saline] 1,000 ml IV ASDIRECTED 02/28/20 13:20 UA W/MICROSCOPIC [URIN] Stat
[2020-02-28] MEDS ORDERED: Sodium Chloride 0.9% 1,000 ML IV SCH (12:15)
[2020-02-28] MEDS ORDERED: HYDROmorphone 0.5 MG/0.5 ML Syringe IVPUSH ONE (13:23)
[2020-02-28] MEDS ORDERED: Ondansetron 4 MG/2 ML SDV IVPUSH ONE (13:23)
== END 2020-02-28 14:03 | disposition home or self-care (01) ==
LOC: JD.ED 11:46
DX: K86.1 Other chronic pancreatitis (principal); F17.210 Nicotine dependence, cigarettes, uncomplicated; E66.9 Obesity, unspecified; Z68.30 Body mass index [BMI] 30.0-30.9, adult; K21.9 Gastro-esophageal reflux disease without esophagitis; Z91.09 Other allergy status, other than to drugs and biological substances; Z79.899 Other long term (current) drug therapy
CPT/HCPCS: 36415; 80053; 81001; 83690; 85025; 86140; 96361; 96365; 96375; 96376; 99284; J1170; J1885; J2405; J2550; J7030; J7050; 99283

== ENCOUNTER 2020-03-14 10:06 | Emergency (ER) | payer MEDICAID ==
--- NOTE | 2020-03-14 10:24 | EDM.PDOC ---
ED HPI GENERAL MEDICAL PROBLEM - General Chief Complaint: Abdominal Pain Stated Complaint: ABDOMINAL PAIN Time Seen by Provider: 03/14/20 10:11 Source of Information: Reports: Patient History Limitations: Reports: No Limitations - History of Present Illness INITIAL COMMENTS - FREE TEXT/NARRATIVE: TRIAGE NOTE -- c/o "center right" abdominal pains since yesterday. c/o vomiting. c/o chronic diarrhea. States has chronic pancreatitis. As above. There is been no fever. No other symptom of acute medical illness. Apparently the nausea vomiting and abdominal pain are more or less chronic. Noted to have chronic pancreatitis. Risk factors include this history as well as cigarette smoking and suspected opioid dependency/abuse. The patient has taken to anti-emetics and continues to take MS Contin on a daily basis. He is also on omeprazole. Apparently the discomfort and nausea and vomiting have increased over the past several days and he has come to the emergency department. The patient is noted to have pancreas divisum and whether this is a risk factor is debatable. However he says he has had 2 stents placed in the biliary tree. Patient says he has never abused alcohol. He says he is not had any alcohol to drink in 8 years having stopped because of his pancreatitis. Right Abdomen Pain Score (Numeric/FACES): 8 - Related Data Allergies Allergy/AdvReac Type Severity Reaction Status Date / Time cat dander Allergy Itching Verified 03/14/20 10:13 Home Meds: Home Meds Omeprazole [Prilosec] 20 mg PO BID 04/05/14 [History] Amylase/Lipase/Protease [Angel PITTMAN 24,000 Unit] 5 cap PO ASDIRECTED 08/02/14 [ History] Ondansetron [Zofran ODT] 8 mg PO BID PRN 12/18/18 [History] Morphine [MS Contin] 15 mg PO DAILY 10/15/19 [History] Promethazine [Phenergan] 25 mg PO Q6H PRN #10 tab 02/28/20 [Rx] Past Medical History - Past Health History Medical/Surgical History: Denies Medical/Surgical History HEENT History: Reports: Impaired Vision Other HEENT History: wears glasses Cardiovascular History: Reports: None Respiratory History: Reports: None Gastrointestinal History: Reports: GERD, Other (See Below) Other Gastrointestinal History: Stents placed in pancreas, sphinctor of asad surgery . gastroparesis, chronic pancreatitis. Genitourinary History: Reports: None Musculoskeletal History: Reports: Back Pain, Chronic Neurological History: Reports: None Psychiatric History: Reports: Addiction, Anxiety, Depression Endocrine/Metabolic History: Reports: Obesity/BMI 30+ Other Endocrine/Metabolic History: Pancreatic devisium diagnosed Summer 2015. Stone was removed summer-Jun Hematologic History: Reports: None Immunologic History: Reports: None Oncologic (Cancer) History: Reports: None Dermatologic History: Reports: Other (See Below) Other Dermatologic History: allergic to cats - Infectious Disease History Infectious Disease History: Reports: Chicken Pox, Shingles - Past Surgical History Head Surgeries/Procedures: Reports: None GI Surgical History: Reports: Cholecystectomy, EGD, ERCP Social & Family History - Family History Family Medical History: Noncontributory Cardiac: Reports: CAD, Stent Respiratory: Reports: None GI: Reports: None Neurological: Reports: CVA Oncologic: Reports: Breast, Other (See Below) Other Oncologic Family History: STOMACH - Tobacco Use Smoking Status *Q: Current Every Day Smoker - Caffeine Use Caffeine Use: Reports: None - Living Situation & Occupation Living situation: Reports: Single, Alone 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 ED EXAM, GI/ABD - Physical Exam Exam: See Below Exam Limited By: No Limitations General Appearance: Alert, WD/WN, No Apparent Distress (But looks somewhat miserable), Other (Reeks of tobacco smoke) Eyes: Bilateral: EOMI Ears: Normal External Exam Nose: Normal Inspection Throat/Mouth: Normal Inspection Head: Atraumatic, Normocephalic Neck: Normal Inspection, Supple Respiratory/Chest: No Respiratory Distress, Lungs Clear Cardiovascular: Regular Rate, Rhythm (Initially with mild tachycardia) GI/Abdominal Exam: Soft (Reaction to exam. No involuntary guarding. No yobani rebound. Apparent diffuse tenderness across upper abdomen.) Back Exam: Normal Inspection Extremities: Normal Inspection Neurological: Alert, Oriented, Normal Cognition, Normal Gait, No Motor/Sensory Deficits Psychiatric: Depressed Mood Skin Exam: Warm, Dry Course - Vital Signs Last Recorded V/S: Last Vital Signs Temp 36.5 C 03/14/20 10:10 Pulse 104 H 03/14/20 10:10 Resp 20 03/14/20 10:10 BP 153/124 H 03/14/20 10:10 Pulse Ox 100 03/14/20 10:10 - Orders/Labs/Meds Orders: Active Orders 24 hr Category Date Time Status Sodium Chloride 0.9% [Normal Saline] 1,000 ml Med 03/14/20 10:30 Active IV ASDIRECTED Sodium Chloride 0.9% [Normal Saline] 1,000 ml Med 03/14/20 13:55 Active IV ONETIME Medication Orders Sodium Chloride (Normal Saline) 1,000 mls @ 150 mls/hr IV ASDIRECTED MACHELLE Last Admin: 03/14/20 10:44 Dose: 150 mls/hr Sodium Chloride (Normal Saline) 1,000 mls @ 999 mls/hr IV ONETIME ONE Stop: 03/14/20 14:55 Last Admin: 03/14/20 13:57 Dose: 999 mls/hr Labs: Laboratory Tests 03/14/20 03/14/20 03/14/20 Range/Units 10:38 10:40 10:46 WBC 13.74 H (4.23-9.07) K/mm3 RBC 5.25 (4.63-6.08) M/mm3 Hgb 14.9 (13.7-17.5) gm/dl Hct 45.6 (40.1-51.0) % MCV 86.9 (79.0-92.2) fl MCH 28.4 (25.7-32.2) pg MCHC 32.7 (32.2-35.5) g/dl RDW Std Deviation 45.9 H (35.1-43.9) fL Plt Count 298 (163-337) K/mm3 MPV 10.5 (9.4-12.3) fl Neutrophils % (Manual) 59 (40-60) % Band Neutrophils % 0 (0-10) % Lymphocytes % (Manual) 32 (20-40) % Atypical Lymphs % 0 % Monocytes % (Manual) 6 (2-10) % Eosinophils % (Manual) 3 (0.8-7.0) % Basophils % (Manual) 0 L (0.2-1.2) Platelet Estimate Adequate RBC Morph Comment Normal Sodium (136-145) mEq/L Potassium (3.5-5.1) mEq/L Chloride (98-107) mEq/L Carbon Dioxide (21-32) mEq/L Anion Gap (5-15) BUN (7-18) mg/dL Creatinine (0.7-1.3) mg/dL Est Cr Clr Drug Dosing mL/min Estimated GFR (MDRD) (>60) mL/min BUN/Creatinine Ratio (14-18) Glucose (74-106) mg/dL Calcium (8.5-10.1) mg/dL Magnesium (1.8-2.4) mg/dl Total Bilirubin (0.2-1.0) mg/dL AST (15-37) U/L ALT (16-63) U/L Alkaline Phosphatase (46-116) U/L Total Protein (6.4-8.2) g/dl Albumin (3.4-5.0) g/dl Globulin gm/dL Albumin/Globulin Ratio (1-2) Lipase (73-393) U/L Urine Color Yellow (Yellow) Urine Appearance Clear (Clear) Urine pH 6.0 (5.0-8.0) Ur Specific [place] > or = 1.030 (1.005-1.030) Urine Protein Negative (Negative) Urine Glucose (UA) Negative (Negative) Urine Ketones Negative (Negative) Urine Occult Blood Negative (Negative) Urine Nitrite Negative (Negative) Urine Bilirubin Negative (Negative) Urine Urobilinogen 0.2 (0.2-1.0) Ur Leukocyte Esterase Negative (Negative) Urine Opiates Screen Presumptive positive H (AKNZAT=779) Ur Buprenorphine Scrn Negative (CUTOFF=10) Ur Oxycodone Screen Negative (JSG4YT=408) Urine Methadone Screen Negative (TVU2XX=367) Ur Propoxyphene Screen Negative (YMTJYT=769) Ur Barbiturates Screen Negative (HFBGNP=191) Ur Tricyclics Screen Negative (PZBAYU=604) Ur Phencyclidine Scrn Negative (CUTOFF=25) Ur Amphetamine Screen Negative (DYZAUO=768) U Methamphetamines Scrn Negative (PEYGEP=683) U Benzodiazepines Scrn Negative (GELIIH=472) U Cocaine Metab Screen Negative (TAFSDJ=716) U Marijuana (THC) Screen Presumptive positive H (CUTOFF=50) 03/14/20 Range/Units 10:46 WBC (4.23-9.07) K/mm3 RBC (4.63-6.08) M/mm3 Hgb (13.7-17.5) gm/dl Hct (40.1-51.0) % MCV (79.0-92.2) fl MCH (25.7-32.2) pg MCHC (32.2-35.5) g/dl RDW Std Deviation (35.1-43.9) fL Plt Count (163-337) K/mm3 MPV (9.4-12.3) fl Neutrophils % (Manual) (40-60) % Band Neutrophils % (0-10) % Lymphocytes % (Manual) (20-40) % Atypical Lymphs % % Monocytes % (Manual) (2-10) % Eosinophils % (Manual) (0.8-7.0) % Basophils % (Manual) (0.2-1.2) Platelet Estimate RBC Morph Comment Sodium 142 (136-145) mEq/L Potassium 4.0 (3.5-5.1) mEq/L Chloride 105 (98-107) mEq/L Carbon Dioxide 25 (21-32) mEq/L Anion Gap 16.0 H (5-15) BUN 12 (7-18) mg/dL Creatinine 0.9 (0.7-1.3) mg/dL Est Cr Clr Drug Dosing 134.46 mL/min Estimated GFR (MDRD) > 60 (>60) mL/min BUN/Creatinine Ratio 13.3 L (14-18) Glucose 114 H (74-106) mg/dL Calcium 9.1 (8.5-10.1) mg/dL Magnesium 1.9 (1.8-2.4) mg/dl Total Bilirubin 0.6 (0.2-1.0) mg/dL AST 12 L (15-37) U/L ALT 21 (16-63) U/L Alkaline Phosphatase 83 (46-116) U/L Total Protein 7.8 (6.4-8.2) g/dl Albumin 3.9 (3.4-5.0) g/dl Globulin 3.9 gm/dL Albumin/Globulin Ratio 1.0 (1-2) Lipase 144 (73-393) U/L Urine Color (Yellow) Urine Appearance (Clear) Urine pH (5.0-8.0) Ur Specific [place] (1.005-1.030) Urine Protein (Negative) Urine Glucose (UA) (Negative) Urine Ketones (Negative) Urine Occult Blood (Negative) Urine Nitrite (Negative) Urine Bilirubin (Negative) Urine Urobilinogen (0.2-1.0) Ur Leukocyte Esterase (Negative) Urine Opiates Screen (QPADLJ=360) Ur Buprenorphine Scrn (CUTOFF=10) Ur Oxycodone Screen (OMA0UA=216) Urine Methadone Screen (BHQ2YX=552) Ur Propoxyphene Screen (JYZYJD=139) Ur Barbiturates Screen (EYJQUN=706) Ur Tricyclics Screen (ZHYCHA=344) Ur Phencyclidine Scrn (CUTOFF=25) Ur Amphetamine Screen (DGRFWC=791) U Methamphetamines Scrn (AIALHT=505) U Benzodiazepines Scrn (ZPRUXV=051) U Cocaine Metab Screen (OCLGFD=506) U Marijuana (THC) Screen (CUTOFF=50) Meds: Medications Generic Name Dose Route Start Last Admin Trade Name Freq PRN Reason Stop Dose Admin Sodium Chloride 1,000 mls @ 150 mls/hr 03/14/20 10:30 03/14/20 10:44 Normal Saline IV 150 mls/hr ASDIRECTED MACHELLE Administration Sodium Chloride 1,000 mls @ 999 mls/hr 03/14/20 13:55 03/14/20 13:57 Normal Saline IV 03/14/20 14:55 999 mls/hr ONETIME ONE Administration Discontinued Medications Generic Name Dose Route Start Last Admin Trade Name Freq PRN Reason Stop Dose Admin Lorazepam 2 mg 03/14/20 10:47 03/14/20 11:04 Ativan IVPUSH 03/14/20 10:48 2 mg ONETIME ONE Administration Lorazepam 2 mg 03/14/20 11:33 03/14/20 11:37 Ativan IVPUSH 03/14/20 11:34 2 mg ONETIME ONE Administration Prochlorperazine Edisylate 10 mg 03/14/20 12:58 03/14/20 13:16 Compazine IVPUSH 03/14/20 12:59 10 mg ONETIME ONE Administration - Re-Assessments/Exams Free Text/Narrative Re-Assessment/Exam: 03/14/20 14:35 The patient was counseled at some length about his opioid dependency. He was given to understand that taking MS Contin on a daily basis is going to be deleterious to his health. He is probably having tachyphylaxis with withdrawal producing his level of discomfort. He has received 2 doses of IV Ativan with some relief. He vomited once during this encounter and was given Compazine IV. The patient continued to look fairly well. He was ambulatory and getting around on his own. He made several requests for potent narcotic analgesia. Again he was given to understand that this would accomplish nothing but dig him in deeper with his dependency. The patient received IV fluids as well. The only lab of any concern outside the reference range was a mild leukocytosis about 13,000. No left shift. No evidence clinically of an acute infection producing this. Patient came in in a fair amount of psychological stress and he is also a smoker which may be where the mild leukocytosis is coming from. Patient was discharged in good and stable condition though not real happy that he has not received his Dilaudid he was requesting. He is urged to arrange close follow-up with his primary. He is urged to take steps to get withdrawn from narcotics. He is welcome to return anytime especially if he wishes to be considered for inpatient drug rehab. Departure - Departure Time of Disposition: 14:42 Disposition: Home, Self-Care 01 Condition: Good Clinical Impression: Chronic pain syndrome, Abdominal discomfort, History of pancreatitis, Drug- seeking behavior Opioid dependence Qualifiers: Substance use status: with unspecified opioid-induced disorder Qualified Code(s ): F11.29 - Opioid dependence with unspecified opioid-induced disorder Leukocytosis, unspecified Qualifiers: Leukocytosis type: unspecified Qualified Code(s): D72.829 - Elevated white blood cell count, unspecified - Discharge Information Instructions: Warning Signs of Opioid Misuse, Opioid Use Disorder Referrals: Artie Rogers MD [Primary Care Provider] - Forms: ED Department Discharge Additional Instructions: You have been seen for abdominal discomfort with nausea. Your daily narcotic use is of concern and is in all likelihood contributing to your misery. See your primary as soon as possible so that steps may be taken to withdraw you from opioids. There is no evidence of an acute pancreatitis. There is a mildly increased white blood count which is probably reactive but needs to be followed up by your primary. Return to ER for any fever inability to hold down fluids to maintain urine output or any other concern. You have made several request for potent narcotic analgesia. We had not given you drugs in the ER during this visit as this would in all likelihood serve to only dig you in deeper with your opioid dependence. Sepsis Event Note - Evaluation Sepsis Screening Result: No Definite Risk - Focused Exam Vital Signs: Vital Signs Temp Pulse Resp BP Pulse Ox 03/14/20 10:10 36.5 C 104 H 20 153/124 H 100 Date Exam was Performed: 03/14/20 Time Exam was Performed: 14:52 - My Orders Last 24 Hours: My Active Orders 03/14/20 10:30 Sodium Chloride 0.9% [Normal Saline] 1,000 ml IV ASDIRECTED 03/14/20 13:55 Sodium Chloride 0.9% [Normal Saline] 1,000 ml IV ONETIME - Assessment/Plan Last 24 Hours: My Active Orders 03/14/20 10:30 Sodium Chloride 0.9% [Normal Saline] 1,000 ml IV ASDIRECTED 03/14/20 13:55 Sodium Chloride 0.9% [Normal Saline] 1,000 ml IV ONETIME
[2020-03-14] MEDS ORDERED: Sodium Chloride 0.9% 1,000 ML IV SCH (10:30)
[2020-03-14] MEDS ORDERED: LORazepam 2 MG/ML SDV IVPUSH ONE ×2 (10:47→11:33)
[2020-03-14] MEDS ORDERED: Prochlorperazine 10 MG/2 ML SDV IVPUSH ONE (12:58)
[2020-03-14] MEDS ORDERED: Sodium Chloride 0.9% 1,000 ML IV ONE (13:55)
[2020-03-14 15:12] VITALS: BP 179/162; PULSE 80
== END 2020-03-14 15:05 | disposition home or self-care (01) ==
LOC: JD.ED 10:06
DX: G89.4 Chronic pain syndrome (principal); R10.10 Upper abdominal pain, unspecified; F11.29 Opioid dependence with unspecified opioid-induced disorder; D72.829 Elevated white blood cell count, unspecified; F17.210 Nicotine dependence, cigarettes, uncomplicated; R00.0 Tachycardia, unspecified; K21.9 Gastro-esophageal reflux disease without esophagitis; E66.9 Obesity, unspecified; Z87.19 Personal history of other diseases of the digestive system; Z76.5 Malingerer [conscious simulation]; Z91.048 Other nonmedicinal substance allergy status; Z79.899 Other long term (current) drug therapy; Z68.30 Body mass index [BMI] 30.0-30.9, adult; Z90.49 Acquired absence of other specified parts of digestive tract
CPT/HCPCS: 36415; 80053; 80306; 81003; 83690; 83735; 85007; 85027; 96361; 96374; 96375; 96376; 99284; J0780; J2060; J7030

== ENCOUNTER 2020-03-14 18:35 | Emergency (ER) | payer MEDICAID ==
[2020-03-14 18:44] VITALS: BP 162/99; PULSE 68
--- NOTE | 2020-03-14 19:15 | EDM.PDOC ---
ED HPI GENERAL MEDICAL PROBLEM - General Chief Complaint: Abdominal Pain Stated Complaint: PANCREATITIS Time Seen by Provider: 03/14/20 19:12 - History of Present Illness INITIAL COMMENTS - FREE TEXT/NARRATIVE: Patient was seen in this emergency room earlier today with worsening pain with his chronic pancreatitis. He was not given more medications to take home. Patient complains that he still has some pain. It sounds like a lot of his pain is chronic with what of the nausea and vomiting is chronic. He sees a specialist in [place] and his primary provider here is Dr. Cannon the patient has not had any changes to his habits his exact goal and treatment has not yet been determined by his physicians. Patient denies any recent fevers chills or other abnormal symptoms. Patient has not have any breathing difficulty shortness of breath chest pain chest pressure. This pain seems to be localized to the epigastric and upper abdominal areas his laboratory evaluation earlier today is not that concerning. Abdomen Pain Score (Numeric/FACES): 8 - Related Data Allergies Allergy/AdvReac Type Severity Reaction Status Date / Time cat dander Allergy Itching Verified 03/14/20 10:13 Home Meds: Home Meds Omeprazole [Prilosec] 20 mg PO BID 04/05/14 [History] Amylase/Lipase/Protease [Angel PITTMAN 24,000 Unit] 5 cap PO ASDIRECTED 08/02/14 [ History] Ondansetron [Zofran ODT] 8 mg PO BID PRN 12/18/18 [History] Morphine [MS Contin] 15 mg PO DAILY 10/15/19 [History] Promethazine [Phenergan] 25 mg PO Q6H PRN #10 tab 02/28/20 [Rx] Sucralfate [Carafate] 1 gm PO ASDIRECTED #28 tablet 03/14/20 [Rx] Past Medical History - Past Health History Medical/Surgical History: Denies Medical/Surgical History HEENT History: Reports: Impaired Vision Other HEENT History: wears glasses Cardiovascular History: Reports: None Respiratory History: Reports: None Gastrointestinal History: Reports: GERD, Other (See Below) Other Gastrointestinal History: Stents placed in pancreas, sphinctor of asad surgery . gastroparesis, chronic pancreatitis. Genitourinary History: Reports: None Musculoskeletal History: Reports: Back Pain, Chronic Neurological History: Reports: None Psychiatric History: Reports: Addiction, Anxiety, Depression Endocrine/Metabolic History: Reports: Obesity/BMI 30+ Other Endocrine/Metabolic History: Pancreatic devisium diagnosed Summer 2015. Stone was removed summer-Jun Hematologic History: Reports: None Immunologic History: Reports: None Oncologic (Cancer) History: Reports: None Dermatologic History: Reports: Other (See Below) Other Dermatologic History: allergic to cats - Infectious Disease History Infectious Disease History: Reports: Chicken Pox, Shingles - Past Surgical History Head Surgeries/Procedures: Reports: None GI Surgical History: Reports: Cholecystectomy, EGD, ERCP Social & Family History - Family History Family Medical History: Noncontributory Cardiac: Reports: CAD, Stent Respiratory: Reports: None GI: Reports: None Neurological: Reports: CVA Oncologic: Reports: Breast, Other (See Below) Other Oncologic Family History: STOMACH - Caffeine Use Caffeine Use: Reports: None - Living Situation & Occupation Living situation: Reports: Single, Alone 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 Denies: Fever, Chills Respiratory: Reports: No Symptoms Cardiovascular: Reports: No Symptoms GI/Abdominal: Reports: Abdominal Pain, Diarrhea, Nausea, Vomiting. Denies: Constipation Musculoskeletal: Reports: No Symptoms Skin: Reports: No Symptoms Neurological: Reports: No Symptoms Psychiatric: Reports: No Symptoms ED EXAM, GI/ABD - Physical Exam Exam: See Below Exam Limited By: No Limitations General Appearance: Alert Head: Atraumatic, Normocephalic Neck: Normal Inspection, Supple, Non-Tender, Full Range of Motion Respiratory/Chest: No Respiratory Distress, Lungs Clear, Normal Breath Sounds, No Accessory Muscle Use, Chest Non-Tender Cardiovascular: Normal Peripheral Pulses, Regular Rate, Rhythm, No Edema, No Gallop, No JVD, No Murmur, No Rub GI/Abdominal Exam: Normal Bowel Sounds, Soft, No Organomegaly, No Distention, No Abnormal Bruit, No Mass, Pelvis Stable, Other (Upper abdominal tenderness without rigidity rebound or guarding noted) (Male) Exam: No Hernia, Normal Inspection, Normal Prostate, Circumcised Back Exam: Normal Inspection, Full Range of Motion. No: CVA Tenderness (L), CVA Tenderness (R) Extremities: Normal Inspection, Normal Range of Motion, Non-Tender, Normal Capillary Refill, No Pedal Edema Course - Vital Signs Last Recorded V/S: Last Vital Signs Temp 36.3 C 03/14/20 18:40 Pulse 68 03/14/20 18:40 Resp 20 03/14/20 18:40 BP 162/99 H 03/14/20 18:40 Pulse Ox 99 03/14/20 18:40 - Orders/Labs/Meds Orders: Active Orders 24 hr Category Date Time Status Abdomen Pelvis w Cont [CT] Stat Exams 03/14/20 20:58 Taken Sodium Chloride 0.9% [Normal Saline] 1,000 ml Med 03/14/20 21:00 Active IV ASDIRECTED fentaNYL [Sublimaze] Med 03/14/20 22:50 Ordered 50 mcg IVPUSH Q5M PRN Medication Orders Fentanyl (Sublimaze) 50 mcg IVPUSH Q5M PRN PRN Reason: Pain Sodium Chloride (Normal Saline) 1,000 mls @ 150 mls/hr IV ASDIRECTED MACHELLE Labs: Laboratory Tests 03/14/20 03/14/20 Range/Units 20:40 20:40 WBC 11.01 H (4.23-9.07) K/mm3 RBC 4.98 (4.63-6.08) M/mm3 Hgb 14.2 (13.7-17.5) gm/dl Hct 43.6 (40.1-51.0) % MCV 87.6 (79.0-92.2) fl MCH 28.5 (25.7-32.2) pg MCHC 32.6 (32.2-35.5) g/dl RDW Std Deviation 45.7 H (35.1-43.9) fL Plt Count 289 (163-337) K/mm3 MPV 10.5 (9.4-12.3) fl Neut % (Auto) 69.2 H (34.0-67.9) % Lymph % (Auto) 25.0 (21.8-53.1) % [place] % (Auto) 4.9 L (5.3-12.2) % Eos % (Auto) 0.1 L (0.8-7.0) Baso % (Auto) 0.5 (0.1-1.2) % Neut # (Auto) 7.62 H (1.78-5.38) K/mm3 Lymph # (Auto) 2.75 (1.32-3.57) K/mm3 [place] # (Auto) 0.54 (0.30-0.82) K/mm3 Eos # (Auto) 0.01 L (0.04-0.54) K/mm3 Baso # (Auto) 0.06 (0.01-0.08) K/mm3 Manual Slide Review Abnormal smear Sodium 144 (136-145) mEq/L Potassium 3.7 (3.5-5.1) mEq/L Chloride 107 (98-107) mEq/L Carbon Dioxide 26 (21-32) mEq/L Anion Gap 14.7 (5-15) BUN 9 (7-18) mg/dL Creatinine 0.9 (0.7-1.3) mg/dL Est Cr Clr Drug Dosing 134.46 mL/min Estimated GFR (MDRD) > 60 (>60) mL/min BUN/Creatinine Ratio 10.0 L (14-18) Glucose 112 H (74-106) mg/dL Calcium 9.2 (8.5-10.1) mg/dL Total Bilirubin 0.6 (0.2-1.0) mg/dL AST 13 L (15-37) U/L ALT 22 (16-63) U/L Alkaline Phosphatase 81 (46-116) U/L Total Protein 7.8 (6.4-8.2) g/dl Albumin 4.0 (3.4-5.0) g/dl Globulin 3.8 gm/dL Albumin/Globulin Ratio 1.1 (1-2) Lipase 132 (73-393) U/L Meds: Medications Generic Name Dose Route Start Last Admin Trade Name Freq PRN Reason Stop Dose Admin Fentanyl 50 mcg 03/14/20 22:50 Sublimaze IVPUSH Q5M PRN Pain Sodium Chloride 1,000 mls @ 150 mls/hr 03/14/20 21:00 Normal Saline IV ASDIRECTED MACHELLE Discontinued Medications Generic Name Dose Route Start Last Admin Trade Name Freq PRN Reason Stop Dose Admin Fentanyl 100 mcg 03/14/20 20:15 03/14/20 20:25 Sublimaze IVPUSH 03/14/20 20:16 100 mcg ONETIME ONE Administration Promethazine HCl 25 mg/ Sodium 51 mls @ 100 mls/hr 03/14/20 20:15 03/14/20 20 :24 Chloride IV 03/14/20 20:45 100 mls/hr ONETIME ONE Administration Sodium Chloride 500 mls @ 999 mls/hr 03/14/20 20:56 03/14/20 21:07 Normal Saline IV 03/14/20 21:26 999 mls/hr .BOLUS ONE Administration Sucralfate 1 gm 03/14/20 22:14 03/14/20 22:18 Carafate PO 03/14/20 22:15 1 gm ONETIME ONE Administration Sucralfate Confirm 03/14/20 22:16 03/14/20 22:18 Carafate Administered 03/14/20 22:17 Not Given Dose 1 gm .ROUTE .[facility] ONE - Re-Assessments/Exams Free Text/Narrative Re-Assessment/Exam: 03/14/20 19:40 Have a call out to Dr. Artie Cannon as he is on-call for pediatrics and hope to hear back from them soon 03/14/20 22:53 The patient was given Phenergan and a little bit of fentanyl 100 mcg followed by 50 mcg and this is about all him on to give him. I had a long talk with the patient stating he has a chronic pain problem here and it is really not the emergency room's role to treat this he needs to work on a better plan with his regular providers for this. As it turns out it sounds like he might be using more of his pain medication than is prescribed and I told him if he runs out he runs out and will have to wait until he is due to get it refilled. He voices understanding with this Departure - Departure Time of Disposition: 22:54 Disposition: Home, Self-Care 01 Clinical Impression: Gastritis Abdominal pain Qualifiers: Abdominal location: upper abdomen, unspecified Qualified Code(s): R10.10 - Upper abdominal pain, unspecified - Discharge Information Referrals: Artie Rogers MD [Primary Care Provider] - Forms: ED Department Discharge Additional Instructions: Return to the emergency room with any questions problems or worsening symptoms. However, understand that the emergency room should not be part of year pain management. This needs to be dealt with with your regular physicians. I have started you on Carafate you take this 4 times a day before breakfast lunch supper and again at bedtime take your other medications at least 1 hour before the Carafate or 2 hours after. Sepsis Event Note - Evaluation Sepsis Screening Result: No Definite Risk - Focused Exam Vital Signs: Vital Signs Temp Pulse Resp BP Pulse Ox 03/14/20 18:40 36.3 C 68 20 162/99 H 99 Date Exam was Performed: 03/14/20 Time Exam was Performed: 22:52 - My Orders Last 24 Hours: My Active Orders 03/14/20 20:58 Abdomen Pelvis w Cont [CT] Stat 03/14/20 21:00 Sodium Chloride 0.9% [Normal Saline] 1,000 ml IV ASDIRECTED 03/14/20 22:50 fentaNYL [Sublimaze] 50 mcg IVPUSH Q5M PRN - Assessment/Plan Last 24 Hours: My Active Orders 03/14/20 20:58 Abdomen Pelvis w Cont [CT] Stat 03/14/20 21:00 Sodium Chloride 0.9% [Normal Saline] 1,000 ml IV ASDIRECTED 03/14/20 22:50 fentaNYL [Sublimaze] 50 mcg IVPUSH Q5M PRN
[2020-03-14] MEDS ORDERED: Promethazine 25 MG in Sodium Chloride 0.9% 50 ML IV ONE (20:15)
[2020-03-14] MEDS ORDERED: fentaNYL 100 MCG/2 ML SDV IVPUSH ONE (20:15)
[2020-03-14] MEDS ORDERED: Sodium Chloride 0.9% 500 ML IV ONE (20:56)
[2020-03-14] MEDS ORDERED: Sodium Chloride 0.9% 1,000 ML IV SCH (21:00)
[2020-03-14] MEDS ORDERED: Sucralfate 1 GM Tab PO ONE (22:14)
[2020-03-14] MEDS ORDERED: Sucralfate Suspension 1 GM/10 ML Cup ONE (22:16)
[2020-03-14] MEDS ORDERED: fentaNYL 100 MCG/2 ML SDV IVPUSH PRN (22:50)
--- NOTE | 2020-03-15 06:33 | CT ---
CT abdomen and pelvis Technique: Multiple axial sections were obtained from above the dome of the diaphragm inferiorly through the pubic symphysis. Intravenous contrast was given. Small amount of contrast is noted which remains within the stomach. Delayed images were also obtained through the abdomen and pelvis. Findings: Visualized lung bases show nothing acute. Liver contains no focal parenchymal abnormality. Small hiatal hernia is noted. Gastric wall thickening is noted which may relate to gastritis. Spleen appears within normal limits. Surgical clips seen from prior cholecystectomy. Kidneys show symmetric contrast enhancement without hydronephrosis or mass. Adrenal glands show no nodule. Pancreas shows no focal abnormality. Aorta shows no aneurysm. No retroperitoneal adenopathy or mesenteric abnormalities are seen. Appendix is seen which is normal. No pelvic mass or adenopathy is noted. Bowel wall thickening noted within the sigmoid colon. No free fluid or inflammatory change is seen. Impression: 1. Questionable bowel wall thickening within the stomach and difficult to exclude gastritis. Bowel wall thickening also suggested within the sigmoid colon and difficult to coax exclude localized colitis. Please correlate with the patient's symptoms. 2. Previous cholecystectomy. Small hiatal hernia. 3. No acute finding is otherwise seen. Diagnostic code #3 This report was dictated in MDT I agree with preliminary report from [facility], finalized on 03/14/20, 11:07 PM Central Daylight Time
== END 2020-03-14 23:11 | disposition home or self-care (01) ==
LOC: JD.ED 18:35
DX: K29.70 Gastritis, unspecified, without bleeding (principal); K21.9 Gastro-esophageal reflux disease without esophagitis; E66.9 Obesity, unspecified; Z91.048 Other nonmedicinal substance allergy status; Z79.899 Other long term (current) drug therapy; Z68.30 Body mass index [BMI] 30.0-30.9, adult; Z90.49 Acquired absence of other specified parts of digestive tract
CPT/HCPCS: 36415; 74177; 80053; 83690; 85025; 96361; 96365; 96375; 96376; 99284; A9270; J2550; J3010; J7030; J7050

== ENCOUNTER 2020-05-17 14:18 | Emergency (ER) | payer MEDICAID ==
[2020-05-17 14:53] VITALS: BP 173/93; PULSE 102
[2020-05-17] MEDS ORDERED: Ondansetron 4 MG/2 ML SDV IVPUSH ONE (14:58)
[2020-05-17] MEDS ORDERED: Sodium Chloride 0.9% 1,000 ML IV STA (14:58)
[2020-05-17] MEDS ORDERED: Sodium Chloride 0.9% 10 ML Syringe FLUSH PRN (14:58)
[2020-05-17] MEDS ORDERED: LORazepam 2 MG/ML SDV IVPUSH ONE (14:59)
[2020-05-17] MEDS ORDERED: HYDROmorphone 1 MG/ML Syringe IVPUSH ONE ×2 (14:59→15:50)
--- NOTE | 2020-05-17 15:57 | EDM.PDOC ---
ED HPI GENERAL MEDICAL PROBLEM - General Chief Complaint: Gastrointestinal Problem Stated Complaint: VOMITING AND ABDOMINAL PAIN Time Seen by Provider: 05/17/20 14:52 Source of Information: Reports: Patient History Limitations: Reports: No Limitations - History of Present Illness INITIAL COMMENTS - FREE TEXT/NARRATIVE: The patient presents with abdominal pain, nausea or vomiting. He has a history of chronic pancreatitis. He has been doing good for 4 months. This morning the symptoms started. He is not sure what may have started the pain and vomiting. He has no fever, chills, cough, congestion, runny nose, abdominal pain, or dysuria. Onset: Gradual Duration: Hour(s): Location: Reports: Abdomen Quality: Reports: Sharp Severity: Severe Improves with: Reports: None Worsens with: Reports: None Associated Symptoms: Reports: Nausea/Vomiting. Denies: Chest Pain, Cough, Fever/Chills, Headaches, Shortness of Breath - Related Data Allergies Allergy/AdvReac Type Severity Reaction Status Date / Time cat dander Allergy Itching Verified 03/14/20 10:13 Home Meds: Home Meds Omeprazole [Prilosec] 20 mg PO BID 04/05/14 [History] Amylase/Lipase/Protease [Angel DR 24,000 Unit] 5 cap PO ASDIRECTED 08/02/14 [History] Ondansetron [Zofran ODT] 8 mg PO BID PRN 12/18/18 [History] Promethazine [Phenergan] 25 mg PO Q6H PRN #10 tab 02/28/20 [Rx] HYDROmorphone [Dilaudid] 2 mg PO BID PRN 05/17/20 [History] Morphine [MS Contin] 2 mg PO TID 05/17/20 [History] Past Medical History - Past Health History Medical/Surgical History: Denies Medical/Surgical History HEENT History: Reports: Impaired Vision Other HEENT History: wears glasses Cardiovascular History: Reports: None Respiratory History: Reports: None Gastrointestinal History: Reports: GERD, Other (See Below) Other Gastrointestinal History: Stents placed in pancreas, sphinctor of asad surgery . gastroparesis, chronic pancreatitis. Genitourinary History: Reports: None Musculoskeletal History: Reports: Back Pain, Chronic Neurological History: Reports: None Psychiatric History: Reports: Addiction, Anxiety, Depression Endocrine/Metabolic History: Reports: Obesity/BMI 30+ Other Endocrine/Metabolic History: Pancreatic devisium diagnosed Summer 2015. Stone was removed summer-Jun Hematologic History: Reports: None Immunologic History: Reports: None Oncologic (Cancer) History: Reports: None Dermatologic History: Reports: Other (See Below) Other Dermatologic History: allergic to cats - Infectious Disease History Infectious Disease History: Reports: Chicken Pox, Shingles - Past Surgical History Head Surgeries/Procedures: Reports: None GI Surgical History: Reports: Cholecystectomy, EGD, ERCP Social & Family History - Family History Family Medical History: Noncontributory Cardiac: Reports: CAD, Stent Respiratory: Reports: None GI: Reports: None Neurological: Reports: CVA Oncologic: Reports: Breast, Other (See Below) Other Oncologic Family History: STOMACH - Tobacco Use Smoking Status *Q: Light Tobacco Smoker Years of Tobacco use: 15 Packs/Tins Daily: 0 - Caffeine Use Caffeine Use: Reports: None - Living Situation & Occupation Living situation: Reports: Single, Alone 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[employer], 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) ED ROS GENERAL - Review of Systems Review Of Systems: See Below Constitutional: Reports: No Symptoms HEENT: Reports: No Symptoms Respiratory: Reports: No Symptoms Cardiovascular: Reports: No Symptoms Endocrine: Reports: No Symptoms GI/Abdominal: Reports: Abdominal Pain, Nausea, Vomiting ED EXAM, GI/ABD - Physical Exam Exam: See Below Exam Limited By: No Limitations General Appearance: Alert, No Apparent Distress Ears: Normal External Exam Nose: Normal Inspection Head: Atraumatic, Normocephalic Neck: Normal Inspection Respiratory/Chest: No Respiratory Distress, Lungs Clear, Normal Breath Sounds Cardiovascular: Regular Rate, Rhythm, No Edema, No Murmur GI/Abdominal Exam: Soft, No Organomegaly, No Mass, Tender (Moderate upper abdominal pain) Course - Vital Signs Last Recorded V/S: Last Vital Signs Temp 96.9 F 05/17/20 14:50 Pulse 102 H 05/17/20 14:50 Resp 20 05/17/20 14:50 BP 173/93 H 05/17/20 14:50 Pulse Ox 97 05/17/20 14:50 - Orders/Labs/Meds Orders: Active Orders 24 hr Category Date Time Status Peripheral IV Care [RC] . DIRECTED Care 05/17/20 14:58 Active Sodium Chloride 0.9% [Saline Flush] Med 05/17/20 14:58 Active 10 ml FLUSH ASDIRECTED PRN ED Antiemetic Medication Reflex [OM.PC] Stat Oth 05/17/20 14:58 Ordered Peripheral IV Insertion Adult [OM.PC] Stat Ot 05/17/20 14:58 Ordered Medication Orders Sodium Chloride (Saline Flush) 10 ml FLUSH ASDIRECTED PRN PRN Reason: Keep Vein Open Last Admin: 05/17/20 15:23 Dose: 10 ml Documented by: CHARITY Labs: Laboratory Tests 05/17/20 05/17/20 Range/Units 15:15 15:15 WBC 13.57 H (4.23-9.07) K/mm3 RBC 5.02 (4.63-6.08) M/mm3 Hgb 14.4 (13.7-17.5) gm/dl Hct 43.8 (40.1-51.0) % MCV 87.3 (79.0-92.2) fl MCH 28.7 (25.7-32.2) pg MCHC 32.9 (32.2-35.5) g/dl RDW Std Deviation 43.8 (35.1-43.9) fL Plt Count 329 (163-337) K/mm3 MPV 10.7 (9.4-12.3) fl Neut % (Auto) 73.4 H (34.0-67.9) % Lymph % (Auto) 19.0 L (21.8-53.1) % [place] % (Auto) 6.6 (5.3-12.2) % Eos % (Auto) 0.3 L (0.8-7.0) Baso % (Auto) 0.4 (0.1-1.2) % Neut # (Auto) 9.96 H (1.78-5.38) K/mm3 Lymph # (Auto) 2.58 (1.32-3.57) K/mm3 [place] # (Auto) 0.89 H (0.30-0.82) K/mm3 Eos # (Auto) 0.04 (0.04-0.54) K/mm3 Baso # (Auto) 0.06 (0.01-0.08) K/mm3 Manual Slide Review Normal smear Sodium 144 (136-145) mEq/L Potassium 4.0 (3.5-5.1) mEq/L Chloride 106 (98-107) mEq/L Carbon Dioxide 25 (21-32) mEq/L Anion Gap 17.0 H (5-15) BUN 13 (7-18) mg/dL Creatinine 0.9 (0.7-1.3) mg/dL Est Cr Clr Drug Dosing 134.46 mL/min Estimated GFR (MDRD) > 60 (>60) mL/min BUN/Creatinine Ratio 14.4 (14-18) Glucose 114 H (74-106) mg/dL Calcium 9.6 (8.5-10.1) mg/dL Total Bilirubin 0.6 (0.2-1.0) mg/dL AST 15 (15-37) U/L ALT 26 (16-63) U/L Alkaline Phosphatase 107 (46-116) U/L Total Protein 8.6 H (6.4-8.2) g/dl Albumin 4.2 (3.4-5.0) g/dl Globulin 4.4 gm/dL Albumin/Globulin Ratio 1.0 (1-2) Lipase 99 (73-393) U/L Meds: Medications Generic Name Dose Route Start Last Admin Trade Name Freq PRN Reason Stop Dose Admin Sodium Chloride 10 ml 05/17/20 14:58 05/17/20 15:23 Saline Flush FLUSH 10 ml ASDIRECTED PRN Administration Keep Vein Open Discontinued Medications Generic Name Dose Route Start Last Admin Trade Name Freq PRN Reason Stop Dose Admin Fentanyl 100 mcg 05/17/20 16:10 05/17/20 16:20 Sublimaze IVPUSH 05/17/20 16:11 100 mcg ONETIME ONE Administration Fentanyl 100 mcg 05/17/20 17:52 05/17/20 18:11 Sublimaze IVPUSH 05/17/20 17:53 100 mcg ONETIME ONE Administration Hydromorphone HCl 1 mg 05/17/20 14:59 05/17/20 15:20 Dilaudid IVPUSH 05/17/20 15:00 1 mg ONETIME ONE Administration Hydromorphone HCl 1 mg 05/17/20 15:50 05/17/20 15:56 Dilaudid IVPUSH 05/17/20 15:51 1 mg ONETIME ONE Administration Sodium Chloride 1,000 mls @ 1,000 mls/hr 05/17/20 14:58 05/17/20 15:25 Normal Saline IV 05/17/20 15:57 1,000 mls/hr .BOLUS STA Administration Ketorolac Tromethamine 30 mg 05/17/20 17:11 05/17/20 17:27 Toradol IVPUSH 05/17/20 17:12 30 mg ONETIME ONE Administration Lorazepam 1 mg 05/17/20 14:59 05/17/20 15:22 Ativan IVPUSH 05/17/20 15:00 1 mg ONETIME ONE Administration Metoclopramide HCl 10 mg 05/17/20 16:11 05/17/20 16:20 Reglan IVPUSH 05/17/20 16:12 10 mg ONETIME ONE Administration Ondansetron HCl 4 mg 05/17/20 14:58 05/17/20 15:22 Zofran IVPUSH 05/17/20 14:59 4 mg ONETIME ONE Administration Promethazine HCl 25 mg 05/17/20 18:21 05/17/20 18:31 Phenergan IM 05/17/20 18:22 25 mg ONETIME ONE Administration - Re-Assessments/Exams Free Text/Narrative Re-Assessment/Exam: 05/17/20 15:58 I ordered an IV NS 1L bolus, zofran 4mg IV, dilaudid 1mg IV, and labs. 05/17/20 18:33 His WBC was elevated at 13.57. His anion gap was elevated at 17. His lipase was normal at 99. Nothing would really help with the pain. I ordered more dilaudid and a few doses of fentanyl and toradol. I also gave him reglan and phenergan. I will discharge him home. Departure - Departure Time of Disposition: 18:40 Disposition: Home, Self-Care 01 Condition: Good Clinical Impression: Abdominal pain Vomiting Qualifiers: Vomiting type: unspecified Vomiting Intractability: non-intractable Nausea presence: with nausea Qualified Code(s): R11.2 - Nausea with vomiting, unspecified - Discharge Information *PRESCRIPTION DRUG MONITORING PROGRAM REVIEWED*: Not Applicable *COPY OF PRESCRIPTION DRUG MONITORING REPORT IN PATIENT [place]: Not Applicable Referrals: North Brown MD [Primary Care Provider] - Forms: ED Department Discharge Additional Instructions: Drink plenty of fluids. Take your nausea meds and pain meds. Please return if you are worse. Sepsis Event Note (ED) - Evaluation Sepsis Screening Result: No Definite Risk - Focused Exam Vital Signs: Vital Signs Temp Pulse Resp BP Pulse Ox 05/17/20 14:50 96.9 F 102 H 20 173/93 H 97 - My Orders Last 24 Hours: My Active Orders 05/17/20 14:58 Peripheral IV Care [RC] . DIRECTED Sodium Chloride 0.9% [Saline Flush] 10 ml FLUSH ASDIRECTED PRN ED Antiemetic Medication Reflex [OM.PC] Stat Peripheral IV Insertion Adult [OM.PC] Stat - Assessment/Plan Last 24 Hours: My Active Orders 05/17/20 14:58 Peripheral IV Care [RC] . DIRECTED Sodium Chloride 0.9% [Saline Flush] 10 ml FLUSH ASDIRECTED PRN ED Antiemetic Medication Reflex [OM.PC] Stat Peripheral IV Insertion Adult [OM.PC] Stat
[2020-05-17] MEDS ORDERED: fentaNYL 100 MCG/2 ML SDV IVPUSH ONE ×2 (16:10→17:52)
[2020-05-17] MEDS ORDERED: Metoclopramide 10 MG/2 ML SDV IVPUSH ONE (16:11)
[2020-05-17] MEDS ORDERED: Ketorolac 30 MG/ML SDV IVPUSH ONE (17:11)
[2020-05-17] MEDS ORDERED: Promethazine 25 MG/ML SDV IM ONE (18:21)
== END 2020-05-17 18:45 | disposition home or self-care (01) ==
LOC: JD.ED 14:18
DX: R11.2 Nausea with vomiting, unspecified (principal); R10.10 Upper abdominal pain, unspecified; K21.9 Gastro-esophageal reflux disease without esophagitis; F17.210 Nicotine dependence, cigarettes, uncomplicated; E66.9 Obesity, unspecified; Z68.30 Body mass index [BMI] 30.0-30.9, adult; Z91.048 Other nonmedicinal substance allergy status
CPT/HCPCS: 36415; 80053; 83690; 85025; 96361; 96372; 96374; 96375; 96376; 99284; J1170; J1885; J2060; J2405; J2550; J2765; J3010; J7030